=== PATIENT | female | born 1935 | race Caucasian/White ===

== ENCOUNTER 2016-06-03 13:06 | Inpatient (IN) | payer OTHER, BC ==
--- NOTE | 2016-06-03 13:26 | PDOC ---
History of Present Illness - History of Present Illness Initial Comments: 06/03/16 13:50 The patient is an 80 year old female with no past medical hx who presents to the ED complaining of abdominal pain and constipation for 2 weeks. The patient states she has not had a bowel movement in 2 weeks. She states her abdomen feels very distended. She notes she took a few different laxatives with no relief of her constipation. She reports she tries to eat but feels very full. She is having pain when standing up and bending over. She denies ever having a colonoscopy in the past. She reports she does not have a PCP and does not see a doctor on a regular basis. She denies a surgical history. The patient denies nausea, vomiting The patient denies fever, chills <Lizeth Carvajal - Last Filed: 06/03/16 15:31> <Lilibeth Zaman - Last Filed: 06/03/16 23:30> - General History Source: Patient Exam Limitations: No Limitations <Ewa Chavarria - Last Filed: 06/05/16 11:32> - General Chief Complaint: Pain, Acute Stated Complaint: ABD PAIN, CONSTIPATED Time Seen by Provider: 06/03/16 13:25 Past History <Lizeth Carvajal - Last Filed: 06/03/16 15:31> <Lilibeth Zaman - Last Filed: 06/03/16 23:30> - Psycho/Social/Smoking Cessation Hx Suicidal Ideation: No Smoking History: Never smoked <Ewa Chavarria - Last Filed: 06/05/16 11:32> - Past Medical History Allergies/Adverse Reactions: Allergies Allergy/AdvReac Type Severity Reaction Status Date / Time sulindac [From [place]] Allergy Unknown Rash Verified 06/03/16 22:28 CLINERAL Allergy Intermediate Hives Uncoded 06/03/16 13:20 Home Medications: Ambulatory Orders NK [No Known Home Medication] 06/03/16 Review of Systems - Review of Systems Able to Perform ROS?: Yes Comments:: 06/03/16 13:50 GENERAL/CONSTITUTIONAL: No: fever, chills, weakness, loss of appetite. HEAD, EYES, EARS, NOSE AND THROAT: No: change in vision, ear pain, discharge, sore throat, throat swelling. CARDIOVASCULAR: No: chest pain, lightheadedness, palpitations, syncope RESPIRATORY: No: cough, shortness of breath, wheezing, hemoptysis, stridor. GASTROINTESTINAL:+Distended, abdominal pain, constipation. No: nausea, vomiting , diarrhea, rectal bleeding. GENITOURINARY: No: dysuria, hematuria, frequency, urgency, flank pain. MUSCULOSKELETAL: No: back pain, neck pain, joint pain, muscle swelling or pain SKIN: No: lesions, pallor, rash or easy bruising. NEUROLOGIC: No: headache, vertigo, paresthesias, weakness ENDOCRINE: No: unexplained weight gain or loss HEMATOLOGIC/LYMPHATIC: No: anemia, easy bleeding, swelling nodes <Lizeth Carvajal - Last Filed: 06/03/16 15:31> *Physical Exam - Vital Signs Last Vital Signs Temp Pulse Resp BP Pulse Ox 97.7 F 89 19 146/78 96 06/03/16 13:21 06/03/16 13:21 06/03/16 13:21 06/03/16 13:21 06/03/16 13:21 - Physical Exam Comments: 06/03/16 13:50 GENERAL: The patient is in no acute distress. HEAD: Normal with no signs of trauma. EYES: PERRLA, EOMI, sclera anicteric, conjunctiva clear. ENT: Ears normal, nares patent, oropharynx clear without exudates. Moist mucous membranes. NECK: Normal range of motion, supple without lymphadenopathy, JVD, or masses. LUNGS: Breath sounds equal, clear to auscultation bilaterally. No wheezes, and no crackles. HEART:Regular rate and rhythm, normal S1 and S2 without murmur, rub or gallop. ABDOMEN: +Distended. Soft, normoactive bowel sounds. No guarding, no rebound. EXTREMITIES: Normal range of motion, no edema. No clubbing or cyanosis. No erythema, or tenderness. NEUROLOGICAL: Cranial nerves II through XII grossly intact. Normal speech. No focal neurological deficits. MUSCULOSKELETAL: Back nontender to palpation, no CVA tenderness SKIN: Warm, Dry, normal turgor, no rashes or lesions noted. <Lizeth Carvajal - Last Filed: 06/03/16 15:31> - Vital Signs Last Vital Signs Temp Pulse Resp BP Pulse Ox 97.7 F 86 20 163/90 95 06/03/16 13:21 06/03/16 18:56 06/03/16 18:56 06/03/16 18:56 06/03/16 18:56 <Lilibeth Zaman - Last Filed: 06/03/16 23:30> - Vital Signs Last Vital Signs Temp Pulse Resp BP Pulse Ox 97.7 F 89 19 146/78 96 06/03/16 13:21 06/03/16 13:21 06/03/16 13:21 06/03/16 13:21 06/03/16 13:21 <Ewa Chavarria - Last Filed: 06/05/16 11:32> ED Treatment Course - LABORATORY CBC & Chemistry Diagram: 06/03/16 13:40 06/03/16 13:40 - RADIOLOGY Radiograph Interpretation: 06/03/16 15:31 Abdomen X-Ray Imaging reveals dilated loops of small bowel partially filled with contrast and some filled with air. There is a paucity of stool and gas seen in the colon. There is an ovoid calcification with phlebolith seen in the left hemipelvis. Free air is not visualized. The lung bases appear well- aerated. There is a prominent heart. Organomegaly or upper abdominal calcifications are not visualized. Impression: Findings suggestive of a small bowel obstruction. For more complete evaluation, CT is recommended. Reported By: Antwon Chun MD 06/03/16 1522 <Lizeth Carvajal - Last Filed: 06/03/16 15:31> - LABORATORY CBC & Chemistry Diagram: 06/03/16 13:40 06/03/16 13:40 - ADDITIONAL ORDERS Additional order review: Laboratory Results 06/03/16 06/03/16 06/03/16 18:56 13:40 13:40 INR Sodium 140 Potassium 4.2 Chloride 105 Carbon Dioxide 24 Anion Gap 11 BUN 23 H Creatinine 0.9 Creat Clearance w eGFR > 60 Random Glucose 110 H Lactic Acid 0.963 Calcium 9.4 Total Bilirubin 0.5 AST 20 ALT 28 Alkaline Phosphatase 109 Total Protein 7.6 Albumin 3.7 Blood Type O NEGATIVE Antibody Screen Positive H Antibody Identification Not Reportable Antigen Identification Y 06/03/16 13:40 INR 1.05 Sodium Potassium Chloride Carbon Dioxide Anion Gap BUN Creatinine Creat Clearance w eGFR Random Glucose Lactic Acid Calcium Total Bilirubin AST ALT Alkaline Phosphatase Total Protein Albumin Blood Type Antibody Screen Antibody Identification Antigen Identification 06/03/16 13:40 RBC 4.39 MCV 88.7 MCHC 33.4 RDW 14.8 MPV 8.1 Neutrophils % 75.5 Lymphocytes % 15.2 Monocytes % 7.8 Eosinophils % 0.6 Basophils % 0.9 <Lilibeth Zaman - Last Filed: 06/03/16 23:30> - LABORATORY CBC & Chemistry Diagram: 06/05/16 06:05 06/05/16 06:05 <Ewa Chavarria - Last Filed: 06/05/16 11:32> Medical Decision Making - Medical Decision Making 06/03/16 19:51 Pt comes with abd distension; Colon is very distended with fluid ivonne; Rectus sigmoid looks corrugated. Likely obstipation. 06/03/16 23:30 Pt admitted to hospitalist service for likely intestinal obstruction. I started levaquin and flagyl to treat a potential colitis. We placed an NGT to suction her abdomen. 06/03/16 23:34 Patient Name: Poonam Larson THIS IS A PRELIMINARY REPORT FROM [facility] EXAM: CT abdomen/pelvis with contrast IMAGES: 491 DATE OF SERVICE: 2016-06-03 18:25:53.0 REASON FOR EXAM: Abdominal distention, left lower quadrant pain COMPARISON: None FINDINGS: Small hiatal hernia noted. There is no free air. There are 2 nonspecific low-density findings noted in the right lobe of the liver measuring 2.2 and 1.8 cm. The gallbladder is mildly distended. There are no obvious gallstones. There is no hydronephrosis. There are no renal calculi. There is diffuse distention of the colon with fluid stool. Bowel wall thickening is noted in the upper rectum/lower sigmoid colon possibly colitis versus bowel mass. Followup recommended. There are multiple distended fluid and air-filled small bowel loops noted without obvious transition point. Findings may be related to ileus or colonic obstipation. The appendix is not identified with certainty. Urinary bladder is unremarkable. There are no bladder calculi. Calcified 3 cm fat containing mass in the left adnexa possibly heavily calcified dermoid. THIS DOCUMENT HAS BEEN ELECTRONICALLY SIGNED <Lilibeth Zaman - Last Filed: 06/03/16 23:30> - Medical Decision Making 06/03/16 13:26 A portion of this note was documented by scribe services under my direction. I have reviewed the details of the note, within reason, and agree with the documentation with the following case summary and management plan written by me. Nursing documentation reviewed and incorporated into medical decision making This is an 80 yo F with no reported PMH, pt has NO PMD She presents to the ER with a complaint of constipation Pt states she has not had a bowel movement in 2 weeks Today she had a small bowel movement She presented to the ER because of abdominal distention and tenderness She is tolerating liquids When she attempts to eat, she feels full No fevers or chills No vomiting No prior episodes like this She has taken MOM, Mag Citrate with minimal effect she took a suppository and this helped her minimally On examination: Abdominal distention Pt in pain with flexion or extension Will do Labs CT abd and pelvis Enema 06/03/16 15:11 Laboratory Tests 06/03/16 06/03/16 13:40 13:40 WBC 7.9 Hgb 13.0 Hct 39.0 Plt Count 433 BUN 23 H Creatinine 0.9 Random Glucose 110 H Total Bilirubin 0.5 AST 20 ALT 28 06/03/16 15:46 ABD XRAY: SBO likely Will NOT DO ENEMA Awaiting CT scan Pt has already drank contrast 06/03/16 18:[address] waiting on [address] SCAN to be performed Multiple calls placed to CT They are "backed up" Awaiting Lactate Anticipate admission Pt signed out to Dr Zaman pending CT scan results <Ewa Chavarria - Last Filed: 06/05/16 11:32> *DC/Admit/Observation/Transfer - Attestations Scribe Attestion: 06/03/16 13:50 Documentation prepared by Lizeth Carvajal, acting as medical aides teacher for Ewa Chavarria MD/DO. <Lizeth Carvajal - Last Filed: 06/03/16 15:31> - Discharge Dispostion Admit: Yes <Lilibeth Zaman - Last Filed: 06/03/16 23:30> <Ewa Chavarria - Last Filed: 06/05/16 11:32> Diagnosis at time of Disposition: Colonic mass, Obstruction, colon, Colitis, Obstipation - Discharge Dispostion Condition at time of disposition: Guarded
[2016-06-03 14:05] LABS: BASOPHIL 0.9 % (0-2.0); EOSINOPHIL 0.6 % (0-4.5); MCH 29.6 pg (25.7-33.7); MCHC 33.4 g/dl (32.0-36.0); MEAN CELL VOLUME 88.7 fl (80-96); MEAN PLT VOLUME 8.1 fl (7.5-11.1); NEUTROPHILS 75.5 % (42.8-82.8); PLATELET COUNT 433 K/MM3 (134-434); RDW 14.8 % (11.6-15.6); WHITE BLOOD COUNT 7.9 K/mm3 (4.0-10.0)
[2016-06-03 14:18] LABS: ALBUMIN 3.7 g/dl (3.4-5.0); ANION GAP 11 (8-16); BILIRUBIN,TOTAL 0.5 mg/dL (0.2-1.0); CALCIUM 9.4 mg/dL (8.5-10.1); CO2 24 mmol/L (21-32); CREATININE 0.9 mg/dL (0.55-1.02); GLUCOSE,RANDOM 110 mg/dL (74-106); SGOT/AST 20 U/L (15-37); SGPT/ALT 28 U/L (12-78); TOT PROT 7.6 g/dl (6.4-8.2)
[2016-06-03 14:19] LABS: ALK PHOS 109 U/L (45-117)
[2016-06-03 16:25] LABS: INR 1.05 (0.82-1.09); PROTHROMBIN TIME (PATIENT) 11.6 SEC (9.98-11.88)
[2016-06-03] MEDS ORDERED: SODIUM CHLORIDE 1,000 ML IV STA (17:09)
[2016-06-03] MEDS ORDERED: FAMOTIDINE 20 MG/50 ML IVPB 50 ML IVPB ONE (18:55)
[2016-06-03] MEDS ORDERED: morphine CARPU-JECT 2 MG/1 ML DISP.SYRIN IVPUSH ONE (19:50)
[2016-06-03] MEDS ORDERED: METRONIDAZOLE 500 MG PREMIXED 100 ML IVPB ONE (19:53)
[2016-06-03] MEDS ORDERED: LEVOFLOXACIN 500 MG IVPB 100 ML IVPB ONE (19:53)
[2016-06-03] MEDS ORDERED: ONDANSETRON 4 MG/2 ML VIAL IVPB ONE (20:04)
--- NOTE | 2016-06-03 20:34 | HP ---
<Feli Saxena - Last Filed: 06/03/16 20:33> Problem List - Problem (1) Obstruction, colon Code(s): K56.60 - UNSPECIFIED INTESTINAL OBSTRUCTION Visit type - Emergency Visit Emergency Visit: Yes Care time: The patient presented to the Emergency Department on the above date and was hospitalized for further evaluation of their emergent condition. - New Patient This patient is new to me today: Yes Date on this admission: 06/03/16 - Critical Care Critical Care patient: No <Rylie Clark - Last Filed: 06/04/16 03:46> CHIEF COMPLAINT: abdominal pain and constipation PCP: none HISTORY OF PRESENT ILLNESS: 80 year old female with complaint of constipation and lower abdominal pain for 2 weeks. Patient notes that she initially developed abdominal pain and then noticed change in bowel movement and stool that became harder and smaller. She denies passing gas or burping over the past few days. She reports taking multiple laxatives without any relief. She reports a small bowel movement this morning. She also reports decreased appetite. She also notes that last month every time she ate nuts was experiencing abdominal pain. Denies any SOB, cp, fever, nausea, vomiting or diarrhea. Denies any recent weight changes. Denies any recent travel. Denies recent abx use. PMH: denies any PSH: mastoid surgery as a child FH: sister breast ca, mother from CHF, father from stroke at 58 SH: non smoker, denies alcohol or drug use. Lives with family ER course was notable for: (1) Abdominal XRAY/CT (2) (3) Recent Travel: denies PAST MEDICAL HISTORY: denies PAST SURGICAL HISTORY: mastoid surgery as a child Social History: Smoking: no Alcohol: no Drugs: no Family History: sister breast ca, mother CHF, father stroke at 58 Allergies CLINERAL Allergy (Intermediate, Uncoded 06/03/16 13:20) Hives HOME MEDICATIONS: REVIEW OF SYSTEMS CONSTITUTIONAL: Absent: fever, chills, diaphoresis, generalized weakness, malaise, loss of appetite, weight change HEENT: Absent: rhinorrhea, nasal congestion, throat pain, throat swelling, difficulty swallowing, mouth swelling, ear pain, eye pain, visual changes CARDIOVASCULAR: Absent: chest pain, syncope, palpitations, irregular heart rate, lightheadedness , peripheral edema RESPIRATORY: Absent: cough, shortness of breath, dyspnea with exertion, orthopnea, wheezing, stridor, hemoptysis GASTROINTESTINAL: Present: abdominal pain, abdominal distension, constipation Absent: nausea, vomiting, diarrhea, melena, hematochezia GENITOURINARY: Absent: dysuria, frequency, urgency, hesitancy, hematuria, flank pain, genital pain MUSCULOSKELETAL: Absent: myalgia, arthralgia, joint swelling, back pain, neck pain SKIN: Absent: rash, itching, pallor HEMATOLOGIC/IMMUNOLOGIC: Absent: easy bleeding, easy bruising, lymphadenopathy, frequent infections ENDOCRINE: Absent: unexplained weight gain, unexplained weight loss, heat intolerance, cold intolerance NEUROLOGIC: Absent: headache, focal weakness or paresthesias, dizziness, unsteady gait, seizure, mental status changes, bladder or bowel incontinence PSYCHIATRIC: Absent: anxiety, depression, suicidal or homicidal ideation, hallucinations. PHYSICAL EXAMINATION Vital Signs - 24 hr 06/03/16 06/03/16 13:21 18:56 Temperature 97.7 F Pulse Rate 89 Pulse Rate [ 86 Apical] Respiratory 19 20 Rate Blood Pressure 146/78 Blood Pressure 163/90 [Right Arm] O2 Sat by Pulse 96 95 Oximetry (%) GENERAL: Awake, alert, and fully oriented, in no acute distress. HEAD: Normal with no signs of trauma. EYES: Pupils equal, round and reactive to light, extraocular movements intact, sclera anicteric, conjunctiva clear. No lid lag. EARS, NOSE, THROAT: +nasogastric tube inserted with minimal bright red blood drained. Ears normal, nares patent, oropharynx clear without exudates. Moist mucous membranes. NECK: Normal range of motion, supple without lymphadenopathy, JVD, or masses. LUNGS: Breath sounds equal, clear to auscultation bilaterally. No wheezes, and no crackles. No accessory muscle use. HEART: Regular rate and rhythm, normal S1 and S2 without murmur, rub or gallop. ABDOMEN: : +abdominal tenderness to palpation with guarding, +no bowel sounds appreciated,+ tympanic to percussion. No hepatomegaly or splenomegaly. MUSCULOSKELETAL: Normal range of motion at all joints. No bony deformities or tenderness. No CVA tenderness. UPPER EXTREMITIES: 2+ pulses, warm, well-perfused. No cyanosis. No clubbing. Cap refill <2 seconds. No peripheral edema. LOWER EXTREMITIES: 2+ pulses, warm, well-perfused. No calf tenderness. No peripheral edema. NEUROLOGICAL: Cranial nerves II-XII intact. Normal speech. PSYCHIATRIC: Cooperative. Good eye contact. Appropriate mood and affect. SKIN: Warm, dry, normal turgor, no rashes or lesions noted. Laboratory Results - last 24 hr 06/03/16 06/03/16 06/03/16 13:40 13:40 13:40 WBC 7.9 RBC 4.39 Hgb 13.0 Hct 39.0 MCV 88.7 MCHC 33.4 RDW 14.8 Plt Count 433 MPV 8.1 Neutrophils % 75.5 Lymphocytes % 15.2 Monocytes % 7.8 Eosinophils % 0.6 Basophils % 0.9 INR 1.05 Sodium 140 Potassium 4.2 Chloride 105 Carbon Dioxide 24 Anion Gap 11 BUN 23 H Creatinine 0.9 Creat Clearance w eGFR > 60 Random Glucose 110 H Lactic Acid Calcium 9.4 Total Bilirubin 0.5 AST 20 ALT 28 Alkaline Phosphatase 109 Total Protein 7.6 Albumin 3.7 Blood Type Antibody Screen Antibody Identification Antigen Identification 06/03/16 06/03/16 13:40 18:56 WBC RBC Hgb Hct MCV MCHC RDW Plt Count MPV Neutrophils % Lymphocytes % Monocytes % Eosinophils % Basophils % INR Sodium Potassium Chloride Carbon Dioxide Anion Gap BUN Creatinine Creat Clearance w eGFR Random Glucose Lactic Acid 0.963 Calcium Total Bilirubin AST ALT Alkaline Phosphatase Total Protein Albumin Blood Type O NEGATIVE Antibody Screen Positive H Antibody Identification Not Reportable Antigen Identification Y Imaging: Abdominal XRAY: Impression: Findings suggestive of a small bowel obstruction. For more complete evaluation, CT is recommended. ASSESSMENT/PLAN: Admitted for abdominal pain for possible SBO vs colitis -NPO -IVF 100 CC/hr -Levo and Flagyl -Follow CBC&BMP in AM -GI consult -Consider surgical consult DVT ppx -Heparin subQ Documentation prepared by JIM Valente, acting as medical biller coder for Feli Saxena MD.
[2016-06-03] MEDS ORDERED: METRONIDAZOLE 500 MG PREMIXED 100 ML IVPB SCH (22:30)
[2016-06-03] MEDS: SODIUM CHLORIDE 1,000 ML IV SCH (22:53)
[2016-06-03] MEDS: FAMOTIDINE 20 MG/50 ML IVPB 50 ML IVPB SCH (22:54)
[2016-06-03] MEDS: ONDANSETRON 4 MG/2 ML VIAL IVPB PRN (22:54)
[2016-06-04 00:22] VITALS: BMI 21.0
[2016-06-04] MEDS: morphine CARPU-JECT 2 MG/1 ML DISP.SYRIN IVPUSH PRN ×3 (01:06→21:34)
[2016-06-04] MEDS: METRONIDAZOLE 500 MG PREMIXED 100 ML IVPB SCH ×4 (03:53→21:20)
[2016-06-04] MEDS: ONDANSETRON 4 MG/2 ML VIAL IVPB PRN ×2 (06:10→20:26)
--- NOTE | 2016-06-04 08:36 | PN ---
Progress Note, Physician - Current Medication List Current Medications: Active Medications Enoxaparin Sodium (Lovenox -) 40 mg SQ DAILY [facility] Sodium Chloride (Normal Saline -) 1,000 mls @ 100 mls/hr IV ASDIR SHRUTHI Last Admin: 06/03/16 22:53 Dose: 100 mls/hr Famotidine/Sodium Chloride (Pepcid 20 Mg Premixed Ivpb -) 50 mls @ 100 mls/hr IVPB BID SHRUTHI Last Admin: 06/03/16 22:54 Dose: 100 mls/hr Levofloxacin (Levaquin 250 Mg Premixed Ivpb -) 50 mls @ 50 mls/hr IVPB DAILY SHRUTHI Metronidazole (Flagyl 500mg Premixed Ivpb -) 100 mls @ 100 mls/hr IVPB Q6H-IV SHRUTHI Last Admin: 06/04/16 03:53 Dose: 100 mls/hr Morphine Sulfate (Morphine Injection -) 1 mg IVPUSH Q4H PRN PRN Reason: PAIN Last Admin: 06/04/16 06:10 Dose: 1 mg Ondansetron HCl (Zofran Injection) 4 mg IVPB Q6H PRN PRN Reason: NAUSEA Last Admin: 06/04/16 06:10 Dose: 4 mg - Objective Vital Signs: Vital Signs Temperature 97.4 F L 06/04/16 06:00 Pulse Rate 87 06/04/16 06:00 Respiratory Rate 20 06/04/16 06:00 Blood Pressure 146/84 06/04/16 06:00 O2 Sat by Pulse Oximetry (%) 95 06/03/16 21:22 Constitutional: Yes: Well Nourished, No Distress, Calm Eyes: Yes: WNL, Conjunctiva Clear HENT: Yes: Atraumatic, Normocephalic, Other (NG tube in place) Neck: Yes: WNL, Supple, Trachea Midline Cardiovascular: Yes: WNL, Regular Rate and Rhythm Respiratory: Yes: WNL, Regular, CTA Bilaterally Gastrointestinal: Yes: Distention, Hyperactive Bowel Sounds, Tenderness Musculoskeletal: Yes: WNL Extremities: Yes: WNL Edema: No Integumentary: Yes: WNL Neurological: Yes: WNL, Alert, Oriented ...Motor Strength: WNL Psychiatric: Yes: WNL Labs: INR, PTT INR 1.05 (0.82-1.09) 06/03/16 13:40 Impression/Plan Impression/Plan: 80 year old woman admitted for high grade bowel obstruction -obstruction appears to be at sigmoid colon with dilation of large and small bowel -was started on abx for possible colitis by pinion and wheel truer but history and lack of fever/white count makes this less likely -will await official reading of CT by radiologist before stopping abx -follow up GI and surgery consults for possible mass causing obstruction -keep NPO with NG tube in place Visit type - Emergency Visit Emergency Visit: Yes ED Registration Date: 06/03/16 Care time: The patient presented to the Emergency Department on the above date and was hospitalized for further evaluation of their emergent condition. - New Patient This patient is new to me today: Yes Date on this admission: 06/04/16 - Critical Care Critical Care patient: No
[2016-06-04 08:37] LABS: MCH 29.9 pg (25.7-33.7); MCHC 33.6 g/dl (32.0-36.0); MEAN PLT VOLUME 8.3 fl (7.5-11.1); PLATELET COUNT 430 K/MM3 (134-434); RDW 14.8 % (11.6-15.6); WHITE BLOOD COUNT 10.1 K/mm3 (4.0-10.0)
[2016-06-04 08:50] LABS: CALCIUM 8.2 mg/dL (8.5-10.1); CREATININE 0.8 mg/dL (0.55-1.02)
[2016-06-04] MEDS: FAMOTIDINE 20 MG/50 ML IVPB 50 ML IVPB SCH ×2 (09:35→21:30)
[2016-06-04] MEDS: LEVOFLOXACIN 250 MG IVPB 50 ML IVPB SCH (10:23)
[2016-06-04] MEDS: ENOXAPARIN NA (PORCINE) 40 MG/0.4 ML DISP.SYRIN SQ SCH (10:26)
[2016-06-04] MEDS ORDERED: BENZOCAINE/MENTH/CETYLPYRD CL 1 EACH LOZENGE MM PRN (11:43)
--- NOTE | 2016-06-04 13:13 | CON.GI ---
Consult Consult Specialty:: Gastroenterology Referred by:: Dr Morin Reason for Consultation:: Abdominal distension - History of Present Illness Chief Complaint: Distended abdominal with bloating discomfort and failure to have bowel movement for 2 weeks. History of Present Illness: 80W tells me that she has not been able to move her bowels for the past two weeks despite using Citrate of magnesia and milk of magnesia. This is an abrupt change in bowel habits. She denies any preceding constipation or narrowing of stools. She has diminished appetite only recently and denies weight loss. She has never had a colonoscopy or abdominal surgery. - History Source History Provided By: Patient Limitations to Obtaining History: No Limitations - Past Medical History Musculoskeletal: Yes: Chronic low back pain (lumbar disc disease) - Past Surgical History Additional Surgical History: bilateral mastoid surgeries - Alcohol/Substance Use Hx Alcohol Use: No History of Substance Use: reports: None - Smoking History Smoking history: Never smoked - Social History Usual Living Arrangement: With Spouse ADL: Independent Occupation: retired dental hygienist Place of : [facility] History of Recent Travel: No Home Medications - Allergies Allergies/Adverse Reactions: Allergies Allergy/AdvReac Type Severity Reaction Status Date / Time sulindac [From Clinoril] Allergy Unknown Rash Verified 06/03/16 22:28 CLINERAL Allergy Intermediate Hives Uncoded 06/03/16 13:20 - Home Medications Home Medications: Ambulatory Orders NK [No Known Home Medication] 06/03/16 Family Disease History - Family Disease History Family Disease History: Heart Disease: Mother ( 80 congestive heart failure) , CA: Sister (breast cancer), Other: Father ( 56 of CVA) Review of Systems - Review of Systems Constitutional: reports: Loss of Appetite Eyes: reports: No Symptoms HENT: reports: No Symptoms Neck: reports: No Symptoms Cardiovascular: reports: No Symptoms Respiratory: reports: No Symptoms Gastrointestinal: reports: Bloating, Constipation Genitourinary: reports: No Symptoms Musculoskeletal: reports: Back Pain Neurological: reports: No Symptoms Endocrine: reports: No Symptoms Psychiatric: reports: No Symptoms Physical Exam-GI Vital Signs: Vital Signs Temperature 98.0 F 06/04/16 09:00 Pulse Rate 83 06/04/16 09:00 Respiratory Rate 20 06/04/16 09:00 Blood Pressure 140/74 06/04/16 09:00 O2 Sat by Pulse Oximetry (%) 95 06/03/16 21:22 CBC,CMP WBC 10.1 K/mm3 (4.0-10.0) H 06/04/16 07:30 RBC 4.28 M/mm3 (3.60-5.2) 06/04/16 07:30 Hgb 12.8 GM/dL (10.7-15.3) 06/04/16 07:30 Hct 38.1 % (32.4-45.2) 06/04/16 07:30 MCV 89.0 fl (80-96) 06/04/16 07:30 MCHC 33.6 g/dl (32.0-36.0) 06/04/16 07:30 RDW 14.8 % (11.6-15.6) 06/04/16 07:30 Plt Count 430 K/MM3 (134-434) 06/04/16 07:30 MPV 8.3 fl (7.5-11.1) 06/04/16 07:30 Neutrophils % 75.5 % (42.8-82.8) 06/03/16 13:40 Lymphocytes % 15.2 % (8-40) 06/03/16 13:40 Monocytes % 7.8 % (3.8-10.2) 06/03/16 13:40 Eosinophils % 0.6 % (0-4.5) 06/03/16 13:40 Basophils % 0.9 % (0-2.0) 06/03/16 13:40 Sodium 142 mmol/L (136-145) 06/04/16 07:30 Potassium 4.3 mmol/L (3.5-5.1) 06/04/16 07:30 Chloride 109 mmol/L (98-107) H 06/04/16 07:30 Carbon Dioxide 21 mmol/L (21-32) 06/04/16 07:30 Anion Gap 12 (8-16) 06/04/16 07:30 BUN 17 mg/dL (7-18) D 06/04/16 07:30 Creatinine 0.8 mg/dL (0.55-1.02) 06/04/16 07:30 Creat Clearance w eGFR > 60 (>60) 06/03/16 13:40 Random Glucose 96 mg/dL (74-106) 06/04/16 07:30 Lactic Acid 0.963 mmol/L (0.4-2.0) 06/03/16 18:56 Calcium 8.2 mg/dL (8.5-10.1) L 06/04/16 07:30 Total Bilirubin 0.5 mg/dL (0.2-1.0) 06/03/16 13:40 AST 20 U/L (15-37) 06/03/16 13:40 ALT 28 U/L (12-78) 06/03/16 13:40 Alkaline Phosphatase 109 U/L (45-117) 06/03/16 13:40 Total Protein 7.6 g/dl (6.4-8.2) 06/03/16 13:40 Albumin 3.7 g/dl (3.4-5.0) 06/03/16 13:40 Current Medications Generic Name Dose Route Start Last Admin Trade Name Freq PRN Reason Stop Dose Admin Benzocaine/Menthol 1 each 06/04/16 11:43 06/04/16 12:37 Cepacol Lozenge - MM 1 each Q1H PRN Administration SORE THROAT Enoxaparin Sodium 40 mg 06/04/16 10:00 06/04/16 10:26 Lovenox - SQ Not Given DAILY SHRUTHI Sodium Chloride 1,000 mls @ 100 mls/hr 06/03/16 20:45 06/03/16 22:53 Normal Saline - IV 100 mls/hr ASDIR SHRUTHI Administration Famotidine/Sodium Chloride 50 mls @ 100 mls/hr 06/03/16 22:00 06/04/16 09:35 Pepcid 20 Mg Premixed Ivpb - IVPB 100 mls/hr BID SHRTUHI Administration Levofloxacin 50 mls @ 50 mls/hr 06/04/16 10:00 06/04/16 10:23 Levaquin 250 Mg Premixed Ivpb - IVPB 50 mls/hr DAILY SHRUTHI Administration Metronidazole 100 mls @ 100 mls/hr 06/04/16 03:00 06/04/16 08:37 Flagyl 500mg Premixed Ivpb - IVPB 100 mls/hr Q6H-IV SHRUTHI Administration Morphine Sulfate 2 mg 06/04/16 08:41 Morphine Injection - IVPUSH Q4H PRN PAIN Ondansetron HCl 4 mg 06/03/16 20:34 06/04/16 06:10 Zofran Injection IVPB 4 mg Q6H PRN Administration NAUSEA Constitutional: Yes: Anxious Eyes: Yes: Conjunctiva Clear HENT: Yes: Normocephalic Neck: Yes: Supple Cardiovascular: Yes: Regular Rate and Rhythm Respiratory: Yes: CTA Bilaterally Gastrointestinal Inspection: Yes: Distention ...Auscultate: Yes: Hypoactive Bowel Sounds ...Palpate: Yes: Mass (LLQ tubular mass ? stool filled bowel loop), Other ( markedly distended but not yet tense, nontender) ...Rectal Exam: Yes: Guaiac Negative (full of hard feces) Labs: CBC, BMP 06/04/16 07:30 06/04/16 07:30 INR, PTT INR 1.05 (0.82-1.09) 06/03/16 13:40 Imaging - Results Cat Scan: Image Reviewed (two liver masses, marked fecal impaction, uterine fibroid) Problem List - Problems (1) Change in bowel habits Code(s): R19.4 - CHANGE IN BOWEL HABIT Assessment/Plan Poonam has a marked fecal impaction. I cannot exclude the possibility of an obstructing colon cancer with liver mets. I discussed this with her and her . I have advised a colonoscopy and triple phase CT scan of the liver. I have informed Poonam of the potential for such complications as perforation and hemorrhage, She has signed an informed consent. I will initiate a bowel lavage utilizing the NG tube and schedule the colonoscopy when she is adequately prepped.
[2016-06-04] MEDS ORDERED: PEG3350/SOD SULF,BICARB,CL/KCL 4,000 ML SOLN.RECON PO ONE (13:25)
[2016-06-04] MEDS ORDERED: MINERAL OIL ENEMA 133 ML ENEMA PR ONE (13:27)
--- NOTE | 2016-06-04 14:07 | CONSULT ---
[id number], [facility] [place] - History of Present Illness Chief Complaint: abdominal pain and constipation x1 week History of Present Illness: 80 yo F presented to the ED after one week of constipation and 5 days of progressing abdominal pain. The patient states her last BM was on Sunday, 6 days ago, and it was smaller than usual. She had no relief of her constipation with laxatives. She states the abdominal pain began 5 days ago and has slowly progressed. THe pain is worst in her lower abdomen, although she states it is feeling better today. She has felt bloated and full. She has been eating less due to the constipation. She states she has not experienced this before or previous issues with her bowels. She denies fever, chills, nausea, vomiting. - History Source History Provided By: Patient Limitations to Obtaining History: No Limitations - Past Medical History Musculoskeletal: Yes: Chronic low back pain Additional Medical History: Denies PMH - Past Surgical History Additional Surgical History: surgery on ears as a child - Alcohol/Substance Use Hx Alcohol Use: No History of Substance Use: reports: None - Smoking History Smoking history: Never smoked - Social History Usual Living Arrangement: With Spouse ADL: Independent Occupation: retired dental hygienist History of Recent Travel: No <Bharti Ramos - Last Filed: 06/04/16 14:31> Home Medications <Bharti Ramos - Last Filed: 06/04/16 14:31> <Romain Knight - Last Filed: 06/04/16 19:27> - Allergies Allergies/Adverse Reactions: Allergies Allergy/AdvReac Type Severity Reaction Status Date / Time sulindac [From Clinoril] Allergy Unknown Rash Verified 06/03/16 22:28 CLINERAL Allergy Intermediate Hives Uncoded 06/03/16 13:20 - Home Medications Home Medications: Ambulatory Orders NK [No Known Home Medication] 06/03/16 Family Disease History - Family Disease History Family Disease History: Heart Disease: Mother ( 80 congestive heart failure) , CA: Sister (breast cancer), Other: Father ( 56 of CVA) <Bharti Ramos - Last Filed: 06/04/16 14:31> Review of Systems - Review of Systems Constitutional: denies: Chills, Fever Cardiovascular: denies: Chest Pain, Palpitations, Shortness of Breath Respiratory: denies: Cough, SOB Gastrointestinal: reports: Abdominal Pain, Constipation. denies: Diarrhea, Melena, Nausea, Vomiting Genitourinary: denies: Burning, Dysuria Musculoskeletal: reports: Back Pain (chronic) Neurological: denies: Headache, Weakness Hematology/Lymphatic: denies: Easily Bruised, Excessive Bleeding <Bharti Ramos - Last Filed: 06/04/16 14:31> Physical Exam Vital Signs: Vital Signs Temperature 98.9 F 06/04/16 14:04 Pulse Rate 89 06/04/16 14:04 Respiratory Rate 20 06/04/16 09:00 Blood Pressure 120/69 06/04/16 14:04 O2 Sat by Pulse Oximetry (%) 95 06/03/16 21:22 Constitutional: Yes: Well Nourished, No Distress, Calm Cardiovascular: Yes: Regular Rate and Rhythm Respiratory: Yes: CTA Bilaterally Gastrointestinal: Yes: Soft, Distention, Hypoactive Bowel Sounds, Tenderness ( lower abdomen) Extremities: Yes: WNL Neurological: Yes: WNL, Alert, Oriented Labs: CBC, BMP 06/04/16 07:30 06/04/16 07:30 <Bharti Ramos - Last Filed: 06/04/16 14:31> Vital Signs: Vital Signs Temperature 98.9 F 06/04/16 14:04 Pulse Rate 89 06/04/16 14:04 Respiratory Rate 20 06/04/16 09:00 Blood Pressure 120/69 06/04/16 14:04 O2 Sat by Pulse Oximetry (%) 95 06/03/16 21:22 Labs: CBC, BMP 06/04/16 07:30 06/04/16 07:30 <Romain Knight - Last Filed: 06/04/16 19:27> Imaging - Results Cat Scan: Report Reviewed (large amounts stool throughout colon, consistent with constipation, resulting in mild dilation of small bowel- discussed with Dr. Knight) <Bharti Ramos - Last Filed: 06/04/16 14:31> Assessment/Plan Continue NPO, NGT, IV fluids GI consult noted- prep for colonoscopy- agree with enemas ordered by GI GI/DVT prophylaxis OOB Discussed with Dr. Knight <Bharti Ramos - Last Filed: 06/04/16 14:31> Agree Fecal impaction/retention throughout the colon NPO NG tbe Enemas/bowel regimen GI to plan colonoscopy <Romain Knight - Last Filed: 06/04/16 19:27>
[2016-06-04] MEDS: SODIUM CHLORIDE 1,000 ML IV SCH (14:59)
--- NOTE | 2016-06-04 20:15 | EKG ---
Test Reason : Blood Pressure : / mmHG Vent. Rate : 076 BPM Atrial Rate : 076 BPM P-R Int : 142 ms QRS Dur : 070 ms QT Int : 414 ms P-R-T Axes : 047 020 043 degrees QTc Int : 465 ms POOR DATA QUALITY, INTERPRETATION MAY BE ADVERSELY AFFECTED NORMAL SINUS RHYTHM NORMAL ECG NO PREVIOUS ECGS AVAILABLE Confirmed by SANDRA DESHPANDE, PAULETTE ([id number]) on 06/04/2016 8:14:56 PM Referred By: Confirmed By:PAULETTE FLORES MD
[2016-06-05] MEDS: ONDANSETRON 4 MG/2 ML VIAL IVPB PRN ×3 (02:30→15:21)
[2016-06-05] MEDS: METRONIDAZOLE 500 MG PREMIXED 100 ML IVPB SCH ×3 (02:30→14:43)
[2016-06-05] MEDS: morphine CARPU-JECT 2 MG/1 ML DISP.SYRIN IVPUSH PRN ×2 (03:21→19:37)
[2016-06-05] MEDS: SODIUM CHLORIDE 1,000 ML IV SCH ×2 (06:16→21:30)
[2016-06-05 07:26] LABS: BASOPHIL 0.3 % (0-2.0); MCH 30.1 pg (25.7-33.7); MCHC 33.5 g/dl (32.0-36.0); MEAN PLT VOLUME 8.1 fl (7.5-11.1); NEUTROPHILS 88.2 % (42.8-82.8); PLATELET COUNT 416 K/MM3 (134-434); RDW 15.2 % (11.6-15.6); WHITE BLOOD COUNT 10.5 K/mm3 (4.0-10.0)
[2016-06-05 08:16] LABS: ALBUMIN 2.9 g/dl (3.4-5.0); ALK PHOS 81 U/L (45-117); ANION GAP 14 (8-16); BILIRUBIN,TOTAL 0.4 mg/dL (0.2-1.0); CALCIUM 8.1 mg/dL (8.5-10.1); CO2 20 mmol/L (21-32); CREATININE 0.8 mg/dL (0.55-1.02); GLUCOSE,RANDOM 83 mg/dL (74-106); SGOT/AST 18 U/L (15-37); SGPT/ALT 20 U/L (12-78); TOT PROT 6.1 g/dl (6.4-8.2)
[2016-06-05] MEDS: LEVOFLOXACIN 250 MG IVPB 50 ML IVPB SCH (10:01)
[2016-06-05] MEDS: FAMOTIDINE 20 MG/50 ML IVPB 50 ML IVPB SCH ×2 (10:01→21:30)
[2016-06-05] MEDS: ENOXAPARIN NA (PORCINE) 40 MG/0.4 ML DISP.SYRIN SQ SCH (10:02)
--- NOTE | 2016-06-05 13:40 | PN ---
<Suma Dawson - Last Filed: 06/05/16 14:25> Physical Exam: SUBJECTIVE: Patient seen and examined at bed time. patient reports not tolerating go lightly last night and nausea and vomited. patient report abd pain and distention. neg BM, neg pass gas patient denies any fevers, chills, SOb, palpitations, chest pain. Elizabeth Neely surgery switched NG tube from intermittent suction to continues suction. OBJECTIVE: Vital Signs Period Temp Pulse Resp BP Sys/Mead Pulse Ox Last 24 Hr 97.8 F-98.9 F 85-98 20-20 120-140/69-89 GENERAL: Awake, alert, and fully oriented, in mild acute distress. unable to sit up rodriguez to distention and discomfort, no lymphadenopathy. HEAD: Normal with no signs of trauma. EYES: extraocular movements intact, sclera anicteric, conjunctiva clear. EARS, NOSE, THROAT: +nasogastric tube inserted with minimal dark green, Ears normal, nares patent, oropharynx clear without exudates. Moist mucous membranes. NECK: Normal range of motion, supple without lymphadenopathy, JVD, or masses. LUNGS: Breath sounds equal, clear to auscultation bilaterally. No wheezes, and no crackles. No accessory muscle use. HEART: Regular rate and rhythm, normal S1 and S2 without murmur, rub or gallop. ABDOMEN: : Hypoactive Bowel Sounds, +abdominal tenderness to palpation with guarding, + tympanic to percussion. No hepatomegaly or splenomegaly appreciated. MUSCULOSKELETAL: Normal range of motion at all joints. No bony deformities or tenderness. No CVA tenderness. LOWER EXTREMITIES: 2+ pulses, warm, well-perfused. No calf tenderness. No peripheral edema. NEUROLOGICAL: Normal speech. no gross focal neurological deficit. PSYCHIATRIC: Cooperative. Good eye contact. Appropriate mood and affect. SKIN: Warm, dry, decreased turgor, no rashes or lesions noted. Laboratory Results - last 24 hr 06/05/16 06/05/16 06:05 06:05 WBC 10.5 H RBC 4.20 Hgb 12.7 Hct 37.8 MCV 90.0 MCHC 33.5 RDW 15.2 Plt Count 416 MPV 8.1 Neutrophils % 88.2 H Lymphocytes % 6.8 L D Monocytes % 4.7 Eosinophils % 0.0 D Basophils % 0.3 Sodium 144 Potassium 4.0 Chloride 110 H Carbon Dioxide 20 L Anion Gap 14 BUN 22 H D Creatinine 0.8 Creat Clearance w eGFR > 60 Random Glucose 83 Calcium 8.1 L Total Bilirubin 0.4 AST 18 ALT 20 D Alkaline Phosphatase 81 D Total Protein 6.1 L Albumin 2.9 L D Active Medications Generic Name Dose Route Start Last Admin Trade Name Freq PRN Reason Stop Dose Admin Benzocaine/Menthol 1 each 06/04/16 11:43 06/04/16 12:37 Cepacol Lozenge - MM 1 each Q1H PRN Administration SORE THROAT Enoxaparin Sodium 40 mg 06/04/16 10:00 06/05/16 10:02 Lovenox - SQ 40 mg DAILY SHRUTHI Administration Sodium Chloride 1,000 mls @ 100 mls/hr 06/03/16 20:45 06/05/16 06:16 Normal Saline - IV 100 mls/hr ASDIR SHRUTHI Administration Famotidine/Sodium Chloride 50 mls @ 100 mls/hr 06/03/16 22:00 06/05/16 10:01 Pepcid 20 Mg Premixed Ivpb - IVPB 100 mls/hr BID SHRUTHI Administration Levofloxacin 50 mls @ 50 mls/hr 06/04/16 10:00 06/05/16 10:01 Levaquin 250 Mg Premixed Ivpb - IVPB 50 mls/hr DAILY SHRUTHI Administration Metronidazole 100 mls @ 100 mls/hr 06/04/16 03:00 06/05/16 10:01 Flagyl 500mg Premixed Ivpb - IVPB 100 mls/hr Q6H-IV SHRUTHI Administration Morphine Sulfate 2 mg 06/04/16 08:41 06/05/16 03:21 Morphine Injection - IVPUSH 2 mg Q4H PRN Administration PAIN Ondansetron HCl 4 mg 06/03/16 20:34 06/05/16 09:21 Zofran Injection IVPB 4 mg Q6H PRN Administration NAUSEA ASSESSMENT/PLAN: 80 year old female with complaint of constipation and lower abdominal pain for 2 weeks found to have high grad Bowel obstruction with a possibility of an obstructing colon cancer with liver mets. Acute marked fecal impaction: appears to be resulting in mild dilatation of the small bowel loops/ileus and suggestion of thickening of the distal sigmoid colon wall. Continue NPO, NGT, IV fluids -cont abx -keep NPO with NG tube in place -Discussed with Dr. Knight -GI initiated Bowel lavage, and enema: will go for colonoscopy when adequately prepped. -triple phase CT scan of the liver per GI. to exclude Tachycardia: likely secondary to pain. Leukocytois: with left shift, possibly secondary to margination -cont Levaquin 250 Mg Premixed Ivpb daily day 2 -Flagyl 500mg Premixed Ivpb Q6h day 2 GI/DVT prophylaxis OOB NPO Visit type - Emergency Visit Emergency Visit: Yes ED Registration Date: 06/03/16 Care time: The patient presented to the Emergency Department on the above date and was hospitalized for further evaluation of their emergent condition. - New Patient This patient is new to me today: Yes Date on this admission: 06/03/16 - Critical Care Critical Care patient: No <MikelDavidson - Last Filed: 06/05/16 16:01> Physical Exam: ATTENDING PHYSICIAN STATEMENT I saw and evaluated the patient. I reviewed the resident's note and discussed the case with the resident. I agree with the resident's findings and plan as documented. SUBJECTIVE: seen and evaluated at the bedside OBJECTIVE: nauseous, NGT draining bilious fluid ASSESSMENT AND PLAN: 80 year old woman admitted for high grade bowel obstruction -obstruction appears to be at sigmoid colon with dilation of large and small bowel -was started on abx for possible colitis by paleontological helper but history and lack of fever/white count makes this less likely so discontinues abx -CT shows obstruction at sigmoid with suspicious lesions in liver -follow up GI and surgery consults for possible mass causing obstruction -keep NPO with NG tube in place
--- NOTE | 2016-06-05 16:42 | PN ---
Progress Note (short form) - Note Progress Note: Still with abdominal discomfort and distention A possibility of colon CA with liver metastases questioned based on the CT Given golytely for prep fpr colonoscopy- did not tolerate Getting enema for further colonoscopy prep to evaluate for possible CA NPO NG tube in place Vital Signs Period Temp Pulse Resp BP Sys/Mead Pulse Ox Last 24 Hr 97.8 F-98.7 F 85-98 18-20 135-140/80-89 Abd distended, diffusely tender, no rebound CBC, BMP 06/05/16 06:05 06/05/16 06:05 Continue NPO/NGT IV fluids Serial abdominal exams Await colonoscopy If inadequate prep or worsens, may need diverting colostomy
[2016-06-06] MEDS: SODIUM CHLORIDE 1,000 ML IV SCH (06:29)
[2016-06-06 07:23] LABS: BASOPHIL 0.6 % (0-2.0); EOSINOPHIL 0.4 % (0-4.5); MCH 29.9 pg (25.7-33.7); MCHC 33.5 g/dl (32.0-36.0); MEAN CELL VOLUME 89.2 fl (80-96); MEAN PLT VOLUME 8.4 fl (7.5-11.1); NEUTROPHILS 82.3 % (42.8-82.8); PLATELET COUNT 386 K/MM3 (134-434); RDW 15.1 % (11.6-15.6); WHITE BLOOD COUNT 10.5 K/mm3 (4.0-10.0)
[2016-06-06 07:40] LABS: INR 1.32 (0.82-1.09); PROTHROMBIN TIME (PATIENT) 14.6 SEC (9.98-11.88)
[2016-06-06 07:42] LABS: ACTIVATED PTT 26.2 SECONDS (26.9-34.4)
[2016-06-06] MEDS: morphine CARPU-JECT 2 MG/1 ML DISP.SYRIN IVPUSH PRN (07:46)
[2016-06-06 07:51] LABS: ALBUMIN 2.5 g/dl (3.4-5.0); CALCIUM 8.2 mg/dL (8.5-10.1); GLUCOSE,RANDOM 86 mg/dL (74-106)
[2016-06-06 07:54] LABS: ALK PHOS 68 U/L (45-117); ANION GAP 12 (8-16); BILIRUBIN,TOTAL 0.4 mg/dL (0.2-1.0); CO2 22 mmol/L (21-32); CREATININE 0.7 mg/dL (0.55-1.02); SGOT/AST 19 U/L (15-37); SGPT/ALT 16 U/L (12-78); TOT PROT 5.4 g/dl (6.4-8.2)
[2016-06-06] MEDS: ONDANSETRON 4 MG/2 ML VIAL IVPB PRN (08:48)
[2016-06-06] MEDS: ENOXAPARIN NA (PORCINE) 40 MG/0.4 ML DISP.SYRIN SQ SCH (11:14)
[2016-06-06] MEDS: FAMOTIDINE 20 MG/50 ML IVPB 50 ML IVPB SCH ×2 (11:17→21:46)
--- NOTE | 2016-06-06 14:54 | PN ---
Physical Exam: SUBJECTIVE: Patient seen and examined at bed side. patient reports same abdominal discomfort and Nausea, no vomiting. Soap suds enema produced one large Bowel. patient reports slightly better post BM. Discussed case with Dr Knight at bedside. Surgery for tomorrow canceled in light of BM. Dr. Gunn would like to start go lightly per nurse. Family requested second opinion, Dr Harris on board. OBJECTIVE: Vital Signs Period Temp Pulse Resp BP Sys/Mead Pulse Ox Last 24 Hr 97.8 F-98.0 F 69-86 18-22 124-150/60-81 GENERAL: Awake, alert, and fully oriented, in mild acute distress. HEAD: Normal with no signs of trauma. EYES: extraocular movements intact, sclera anicteric, conjunctiva clear. EARS, NOSE, THROAT: +nasogastric tube inserted with dark green, Ears normal, nares patent, oropharynx clear without exudates. Moist mucous membranes. NECK: Normal range of motion, supple without lymphadenopathy, JVD, or masses. LUNGS: Breath sounds equal, clear to auscultation bilaterally. no wheezes, and + crackles right lung base. No accessory muscle use. HEART: Regular rate and rhythm, normal S1 and S2 without murmur, rub or gallop. ABDOMEN: : softer than this morning. Hypoactive Bowel Sounds, +abdominal tenderness to palpation with guarding, + tympanic to percussion. No hepatomegaly or splenomegaly appreciated. MUSCULOSKELETAL: Normal range of motion at all joints. No bony deformities or tenderness. No CVA tenderness. LOWER EXTREMITIES: 2+ pulses, warm, well-perfused. No calf tenderness. No peripheral edema. NEUROLOGICAL: Normal speech. no gross focal neurological deficit. PSYCHIATRIC: Cooperative. Good eye contact. Appropriate mood and affect. SKIN: Warm, dry, decreased turgor, no rashes or lesions noted. Laboratory Results - last 24 hr 06/06/16 06/06/16 06/06/16 06:35 06:35 06:35 WBC 10.5 H RBC 3.93 Hgb 11.8 Hct 35.1 MCV 89.2 MCHC 33.5 RDW 15.1 Plt Count 386 MPV 8.4 Neutrophils % 82.3 Lymphocytes % 9.3 D Monocytes % 7.4 Eosinophils % 0.4 D Basophils % 0.6 INR 1.32 H PTT (Actin FS) 26.2 L Sodium 147 H Potassium 3.2 L Chloride 113 H Carbon Dioxide 22 Anion Gap 12 BUN 23 H Creatinine 0.7 Creat Clearance w eGFR > 60 Random Glucose 86 Calcium 8.2 L Total Bilirubin 0.4 AST 19 ALT 16 Alkaline Phosphatase 68 Total Protein 5.4 L Albumin 2.5 L Blood Type Antibody Screen Antibody Identification 06/06/16 06:35 WBC RBC Hgb Hct MCV MCHC RDW Plt Count MPV Neutrophils % Lymphocytes % Monocytes % Eosinophils % Basophils % INR PTT (Actin FS) Sodium Potassium Chloride Carbon Dioxide Anion Gap BUN Creatinine Creat Clearance w eGFR Random Glucose Calcium Total Bilirubin AST ALT Alkaline Phosphatase Total Protein Albumin Blood Type O NEGATIVE Antibody Screen Positive H Antibody Identification TNP Active Medications Generic Name Dose Route Start Last Admin Trade Name Freq PRN Reason Stop Dose Admin Acetaminophen 1,000 mg 06/06/16 14:28 Ofirmev Injection - IVPB 06/07/16 08:29 Q6H PRN FEVER OR PAIN Benzocaine/Menthol 1 each 06/04/16 11:43 06/04/16 12:37 Cepacol Lozenge - MM 1 each Q1H PRN Administration SORE THROAT Sodium Chloride 1,000 mls @ 100 mls/hr 06/03/16 20:45 06/06/16 06:29 Normal Saline - IV 100 mls/hr ASDIR SHRUTHI Administration Famotidine/Sodium Chloride 50 mls @ 100 mls/hr 06/03/16 22:00 06/06/16 11:17 Pepcid 20 Mg Premixed Ivpb - IVPB 100 mls/hr BID SHRUTHI Administration Ondansetron HCl 4 mg 06/03/16 20:34 06/06/16 08:48 Zofran Injection IVPB 4 mg Q6H PRN Administration NAUSEA ASSESSMENT/PLAN: 80 year old female with complaint of constipation and lower abdominal pain for 2 weeks found to have high grad Bowel obstruction with a possibility of an obstructing colon cancer with liver mets. Acute marked fecal impaction: appears to be resulting in mild dilatation of the small bowel loops/ileus and suggestion of thickening of the distal sigmoid colon wall. s/p soap demian enema produced one large BM. Continue NPO, NGT, IV fluids -keep NPO with NG tube in place -Surgery canceled for tomorrow per Dr. Knight, inlight of BM. if suffencient prep will consider Colonoscopy per GI or Berium enema. -GI initiated Bowel prep with Go lightly, and enema: will go for colonoscopy when adequately prepped. -Triple phase CT scan of the liver per GI. -OOB at tolerated. -d/c morphine and started Ofirmev 1,000mg q6h PRN. -Zofran for Nausea -Follow up CEA Tachycardia: likely secondary to pain. Leukocytois: with left shift, possibly secondary to margination no antibiotics at this time. GI/DVT prophylaxis OOB NPO Visit type - Emergency Visit Emergency Visit: Yes ED Registration Date: 06/03/16 Care time: The patient presented to the Emergency Department on the above date and was hospitalized for further evaluation of their emergent condition. - New Patient This patient is new to me today: No - Critical Care Critical Care patient: No
--- NOTE | 2016-06-06 15:45 | PN ---
Teaching Attending Note Name of Resident: Suma Dawson ATTENDING PHYSICIAN STATEMENT I saw and evaluated the patient. I reviewed the resident's note and discussed the case with the resident. I agree with the resident's findings and plan as documented. SUBJECTIVE:mild abdominal discomfort. no BM since admission. denies CP, SOB, fever, chills, no colonoscopy in the past. OBJECTIVE: Last Vital Signs Temp Pulse Resp BP Pulse Ox 98.0 F 73 20 124/60 95 06/06/16 13:55 06/06/16 13:55 06/06/16 13:55 06/06/16 11:00 06/03/16 21:22 General NAD ABdomen soft distended hyperactive BS. tympanic ASSESSMENT AND PLAN: 80yo F wtih no PMH presented to the ER and was admitted for further evaluation of their emergent condition 1. SBO- with fecal impaction. did not tolerate golytely through NGT. minimal removal of feces on mechanical disempaction. will attempt another enema today if no output will need to consider high colonics for disempaction. NGT adjusted this AM with bilious output. will need colonoscopy for high suspicion of malignancy with liver mets seen on CT. CEA pending. GI and surgery on board. cont NPO, IVF and pain/nausea control 2. Hypokalemia- KCl IV 3. DVT ppx- EAM (lovenox d/c by surgery for possible surgical intervention)
--- NOTE | 2016-06-06 16:27 | PN ---
Progress Note (short form) - Note Progress Note: Patient had BM today Golytely lavage restaretd by Dr. Braun If lavage successful, will need colonoscopy or sunday
[2016-06-06] MEDS: KCL 10 MEQ IVPB 100 ML IVPB SCH ×3 (16:29→21:46)
[2016-06-06] MEDS ORDERED: PEG3350/SOD SULF,BICARB,CL/KCL 4,000 ML SOLN.RECON PO ONE (16:30)
--- NOTE | 2016-06-06 16:55 | PN ---
Progress Note (short form) - Note Progress Note: No acute complaints Was given enemas with large BMs States she feels better and less distended NPO NG tube in place Vital Signs Period Temp Pulse Resp BP Sys/Mead Pulse Ox Last 24 Hr 97.8 F-98.0 F 69-86 18-22 124-150/60-81 Abd softer, distended but less than previously, no rebound CBC, BMP 06/06/16 06:35 06/06/16 06:35 NPO NG tube Continue enemas GI to plan colonoscopy once colon further prepped No need for diverting colostomy at this point Will follow Follow up CEA
[2016-06-06] MEDS: ACETAMINOPHEN 1000 MG/100 ML VIAL (NON FORMULARY) IVPB PRN (17:00)
--- NOTE | 2016-06-06 18:34 | HOSP ---
Subjective - Review of Symptoms Subjective: notified by RN that pt and family is requesting 2nd surgical opinion. informed that there is no plan for surgical intervention at this time. would still like to hear 2nd opinion. consult placed Physical Examination Vital Signs: Vital Signs Temperature 97.7 F 06/06/16 18:30 Pulse Rate 74 06/06/16 18:30 Respiratory Rate 20 06/06/16 18:30 Blood Pressure 147/72 06/06/16 18:30 O2 Sat by Pulse Oximetry (%) 95 06/03/16 21:22 Labs: CBC, BMP 06/06/16 06:35 06/06/16 06:35
--- NOTE | 2016-06-06 18:37 | CONSULT ---
Consult Consult Specialty:: colorectal surgery Referred by:: hemant simmons Reason for Consultation:: constipation - History of Present Illness Chief Complaint: abd pain History of Present Illness: Pt is a 80F with no BM x 2 weeks c/o bloating/abd pain. No prior colonoscopy. She had BM size of softball today with some improvement in abd distension/pain. CT scan shows constipation with liver masses that are unclear. ?transition at rectosigmoid junction? she could not tolerate golytely thru NGT before however with improvement in abd pain and softball BM golytely will be re- attempted. - History Source History Provided By: Patient Limitations to Obtaining History: No Limitations - Past Medical History Musculoskeletal: Yes: Chronic low back pain Additional Medical History: Denies PMH - Past Surgical History Additional Surgical History: surgery on ears as a child - Alcohol/Substance Use Hx Alcohol Use: No History of Substance Use: reports: None - Smoking History Smoking history: Never smoked - Social History Usual Living Arrangement: With Spouse ADL: Independent Occupation: retired dental hygienist History of Recent Travel: No Home Medications - Allergies Allergies/Adverse Reactions: Allergies Allergy/AdvReac Type Severity Reaction Status Date / Time sulindac [From [place]] Allergy Unknown Rash Verified 06/03/16 22:28 CLINERAL Allergy Intermediate Hives Uncoded 06/03/16 13:20 - Home Medications Home Medications: Ambulatory Orders NK [No Known Home Medication] 06/03/16 Family Disease History - Family Disease History Family Disease History: Heart Disease: Mother ( 80 congestive heart failure) , CA: Sister (breast cancer), Other: Father ( 56 of CVA) Review of Systems - Review of Systems Constitutional: denies: Chills, Fever Eyes: denies: Blind Spots, Blurred Vision HENT: denies: Difficult Swallowing, Ear Discharge Neck: denies: Decreased ROM, Lumps Cardiovascular: denies: Chest Pain, Edema Respiratory: denies: Cough, Exercise Intolerance Gastrointestinal: reports: Abdominal Pain, Bloating, Constipation Genitourinary: denies: Burning, Discharge Breasts: denies: Pain, Skin Changes Musculoskeletal: denies: Back Pain, Muscle Pain Integumentary: denies: Blister, Bruising Neurological: denies: Change in LOC, Change in Speech Endocrine: denies: Excessive Sweating, Flushing Hematology/Lymphatic: denies: Easily Bruised, Excessive Bleeding Psychiatric: denies: Altered Sleep Pattern, Anxiety Physical Exam Vital Signs: Vital Signs Temperature 98.0 F 06/06/16 13:55 Pulse Rate 73 06/06/16 13:55 Respiratory Rate 20 06/06/16 13:55 Blood Pressure 124/60 06/06/16 11:00 O2 Sat by Pulse Oximetry (%) 95 06/03/16 21:22 Constitutional: Yes: No Distress, Calm Eyes: Yes: WNL, Conjunctiva Clear HENT: Yes: WNL, Atraumatic Neck: Yes: WNL, Supple Cardiovascular: Yes: WNL, Regular Rate and Rhythm Respiratory: Yes: Regular Gastrointestinal: Yes: Soft, Distention. No: Tenderness ...Rectal Exam: Yes: Other (on digital rectal exam, may have felt mass distally. rectal vault was relatively free of stool burden. with patient in right lateral decubitus position and prone jackknife I performed rigid proctoscopy but could not advance farther than 10cm because of rectal angulation.) Renal/: No: CVA Tenderness - Left, CVA Tenderness - Right Musculoskeletal: No: Joint Stiffness, Joint Swelling Extremities: No: Calf Tenderness, Erythema Integumentary: No: Erythema, Rash Neurological: Yes: Alert, Oriented Psychiatric: Yes: Alert, Oriented Labs: CBC, BMP 06/06/16 06:35 06/06/16 06:35 Imaging - Results Cat Scan: Report Reviewed, Image Reviewed Problem List - Problems (1) Obstipation Assessment/Plan: await golytely oral attempt can try tap water enema with liquid colace in it? if patient cannot tolerate oral golytely, would recommend flex sig or gastrograffin enema prior to any surgical intervention. Code(s): K59.00 - CONSTIPATION, UNSPECIFIED (2) Obstruction, colon Code(s): K56.60 - UNSPECIFIED INTESTINAL OBSTRUCTION
[2016-06-07] MEDS: ONDANSETRON 4 MG/2 ML VIAL IVPB PRN ×2 (02:21→08:30)
[2016-06-07] MEDS: SODIUM CHLORIDE 1,000 ML IV SCH (02:21)
[2016-06-07] MEDS: ACETAMINOPHEN 1000 MG/100 ML VIAL (NON FORMULARY) IVPB PRN ×3 (02:46→17:33)
[2016-06-07 08:38] LABS: MCH 29.9 pg (25.7-33.7); MCHC 33.4 g/dl (32.0-36.0); MEAN CELL VOLUME 89.4 fl (80-96); MEAN PLT VOLUME 8.3 fl (7.5-11.1); PLATELET COUNT 396 K/MM3 (134-434); RDW 15.4 % (11.6-15.6); WHITE BLOOD COUNT 9.1 K/mm3 (4.0-10.0)
[2016-06-07 09:11] LABS: CALCIUM 8.3 mg/dL (8.5-10.1); MAGNESIUM 2.3 mg/dL (1.8-2.4)
[2016-06-07 09:13] LABS: CREATININE 0.7 mg/dL (0.55-1.02); PHOSPHOROUS 2.8 mg/dL (2.5-4.9)
[2016-06-07] MEDS: FAMOTIDINE 20 MG/50 ML IVPB 50 ML IVPB SCH ×2 (09:52→21:44)
[2016-06-07] MEDS ORDERED: ENOXAPARIN NA (PORCINE) 40 MG/0.4 ML DISP.SYRIN SQ SCH (10:00)
[2016-06-07] MEDS ORDERED: METOCLOPRAMIDE HCL INJECTION 10 MG/2 ML VIAL IVPUSH PRN (10:50)
--- NOTE | 2016-06-07 12:00 | PN ---
GI Progress Note Subjective: GI NOte: Dr Knight's and Dr Harris's notes are appeciated. Diverting colostomy deferred when Poonam had a BM and relief of some of her distension yesterday. Used this opportunity to resume her Golytely drip. This had to be stopped after 900cc when she again developed distension and pain. FUA reveals a distended colon but no pneumoperitoneum or critical cecal distension - Objective Vital Signs: Vital Signs Temperature 97.4 F L 06/07/16 10:30 Pulse Rate 69 06/07/16 10:30 Respiratory Rate 20 06/07/16 10:30 Blood Pressure 144/73 06/07/16 10:30 O2 Sat by Pulse Oximetry (%) 95 06/03/16 21:22 Constitutional: Anxious Gastrointestinal Inspection: Yes: Distention ...Auscultate: Yes: Hypoactive Bowel Sounds ...Palpate: Yes: Other (nonetender) ...Percussion: Yes: Tympanitic Labs: CBC, BMP 06/07/16 07:10 06/07/16 07:10 INR, PTT INR 1.32 (0.82-1.09) H 06/06/16 06:35 Assessment/Plan Obstructing fecal impaction. Unfortunately radiology has again refused to do a gastrograffin enema. Awaiting return call from Dr Shen. If GGE does not occur then I have explained to Poonam and her that we will attempt a flexible sigmoidoscopy tomorrow. She is aware of the risks of perforation. Will resume tap water and mineral oil enemas in hopes of further relief of this impaction. Discussed care with resident and Dr Knight. Problem List - Problems (1) Change in bowel habits Code(s): R19.4 - CHANGE IN BOWEL HABIT
--- NOTE | 2016-06-07 12:52 | PN ---
Progress Note (short form) - Note Progress Note: GI : Spoke with Dr Shen who after reviewing the films believes there is a upper rectal obstructing cancer. He advised a repeat CT scan rather than GGE which I have ordered. Discussed with Dr Dawson who will inform the surgeon. Problem List - Problems (1) Change in bowel habits Code(s): R19.4 - CHANGE IN BOWEL HABIT
--- NOTE | 2016-06-07 14:17 | PN ---
Progress Note, Physician Chief Complaint: worse abd pain History of Present Illness: CT re-read as obstructing rectal lesion consistent with UTE yesterday. patient feels more distended. - Current Medication List Current Medications: Active Medications Acetaminophen (Ofirmev Injection -) 1,000 mg IVPB Q6H PRN PRN Reason: FEVER OR PAIN Stop: 06/08/16 04:50 Last Admin: 06/07/16 11:01 Dose: 1,000 mg Benzocaine/Menthol (Cepacol Lozenge -) 1 each MM Q1H PRN PRN Reason: SORE THROAT Last Admin: 06/04/16 12:37 Dose: 1 each Famotidine/Sodium Chloride (Pepcid 20 Mg Premixed Ivpb -) 50 mls @ 100 mls/hr IVPB BID SHRUTHI Last Admin: 06/07/16 09:52 Dose: 100 mls/hr Dextrose/Sodium Chloride (D5-1/2ns -) 1,000 mls @ 125 mls/hr IV ASDIR SHRUTHI Ondansetron HCl (Zofran Injection) 4 mg IVPB Q6H PRN PRN Reason: NAUSEA Last Admin: 06/07/16 08:30 Dose: 4 mg - Objective Vital Signs: Vital Signs Temperature 97.6 F 06/07/16 14:00 Pulse Rate 70 06/07/16 14:00 Respiratory Rate 18 06/07/16 14:00 Blood Pressure 144/73 06/07/16 10:30 O2 Sat by Pulse Oximetry (%) 95 06/03/16 21:22 Constitutional: Yes: No Distress, Calm Eyes: Yes: Conjunctiva Clear, EOM Intact HENT: Yes: Atraumatic, Normocephalic Neck: Yes: Supple, Trachea Midline Cardiovascular: Yes: Regular Rate and Rhythm Respiratory: Yes: Regular Gastrointestinal: Yes: Soft, Distention. No: Tenderness ...Rectal Exam: Yes: Deferred Genitourinary: No: CVA Tenderness - Left, CVA Tenderness - Right Breast(s): No: Nipple Inversion, Skin Changes Musculoskeletal: No: Joint Stiffness, Joint Swelling Extremities: No: Calf Tenderness, External Rotation Integumentary: No: Erythema, Rash Neurological: Yes: Alert, Oriented Psychiatric: Yes: Alert, Oriented Labs: CBC, BMP 06/07/16 07:10 06/07/16 07:10 INR, PTT INR 1.32 (0.82-1.09) H 06/06/16 06:35 Problem List - Problems (1) Obstipation Code(s): K59.00 - CONSTIPATION, UNSPECIFIED (2) Obstruction, colon Assessment/Plan: poss obstructing rectal neoplasm for flex sig to confirm diagnosis. If + will perform laparoscopic possible open colostomy creation tomorrow. If - will have benefits of lavaging patient to aide in relief of constipation. explained risks of perforation/blowout to patient and she understands risk and wishes to proceed. I explained why I would prefer to do it as same time as surgery as if I blow more air into colon higher likelihood of going open. if cancer and if diverted, next step is to ascertain clinical significance of liver lesions. Will d/w radiology whether or not amenable to CT guided biopsy or if MRI would be more helpful. this can be done after treatment of her symptomatic obstruction. case d/w pt, and GI Code(s): K56.60 - UNSPECIFIED INTESTINAL OBSTRUCTION
--- NOTE | 2016-06-07 14:20 | PN ---
Progress Note (short form) - Note Progress Note: No new events NPO NG tube in place On review of CT, radiology suspects an obstructing rectal cancer GI following Vital Signs Period Temp Pulse Resp BP Sys/Mead Pulse Ox Last 24 Hr 97 F-97.7 F 69-90 18-20 136-147/60-78 Abd distended, no rebound CBC, BMP 06/07/16 07:10 06/07/16 07:10 Colorectal surgery- Dr Harris following Based on findings of rectal cancer, will defer management to Dr. Hon Dr Harris agrees Patient aware
[2016-06-07] MEDS ORDERED: PROPOFOL 20 ML ONE (14:35)
--- NOTE | 2016-06-07 15:42 | OP ---
Operative Note - Note: Operative Date: 06/07/16 Pre-Operative Diagnosis: large bowel obstruction Operation: flexible sigmoidoscopy with biopsy Findings: near obstructing lesion at approx 12-15cm from anal verge in mid/upper rectum Post-Operative Diagnosis: Other (malignant rectal neoplasm) Surgeon: John Harris Anesthesia: General Specimens Removed: mass biopsy
--- NOTE | 2016-06-07 15:45 | PN ---
Teaching Attending Note Name of Resident: Suma Dawson ATTENDING PHYSICIAN STATEMENT I saw and evaluated the patient. I reviewed the resident's note and discussed the case with the resident. I agree with the resident's findings and plan as documented. SUBJECTIVE:more pain today than yesterday assoc with nausea. states no episodes of vomiting. had 1 BM yesterday. denies CP, SOB,fever, chills, V/D OBJECTIVE: Last Vital Signs Temp Pulse Resp BP Pulse Ox 97.6 F 70 18 144/73 95 06/07/16 14:00 06/07/16 14:00 06/07/16 14:00 06/07/16 10:30 06/07/16 09:00 General NAD ABdomen soft distended hyporactive BS. tympanic ASSESSMENT AND PLAN: 80yo F wtih no PMH presented to the ER and was admitted for further evaluation of their emergent condition 1. SBO- with fecal impaction. had BM yesterday after soap suds enema. given golyteyl which again she did not tolerate. plan for gastrograffin enema which was not done. discussion with GI and surgery. agree with high concern for malignancy due to possible rectal mass and liver lesion. plan is for flex sigmoidoscopy today. pending on what is seen will determine if surgery is warranted at this time. will ultimately require further classification of liver lesion either with CT guided bx vs MRI. IVF, pain/nausea control 2. Hypokalemia- KCl IV 3. asymptomatic hypernatremia- fecal impaction/sbo. on IVF 4. DVT ppx- SCD
--- NOTE | 2016-06-07 15:45 | CONSULT ---
Consult - text type - Consultation Consultation Note: flex sig shows likely malignant rectal neoplasm. reviewed CT with radiologist, suspicion for liver mets. plan lap poss open colostomy tomorrow ruq ultrasound to eval vascularity of lesions in liver U/S guided biopsy of liver on sunday.
[2016-06-07] MEDS: DEXTROSE 5%-0.45% SALINE 1,000 ML IV SCH (17:05)
[2016-06-07] MEDS ORDERED: morphine CARPU-JECT 2 MG/1 ML DISP.SYRIN IVPUSH PRN (21:47)
--- NOTE | 2016-06-07 21:48 | PN ---
Physical Exam: SUBJECTIVE: Had 1 BM yesterday. Patient seen and examined at bed side. patient reports more abdominal discomfort and Nausea, no vomiting. one large Bowel yesterday. Denies CP, SOB,fever, chills, V/D surgery, radiology, GI discussed case and feel it may be a a malignant rectal neoplasm. Dr. Harris for Flex Sig today , and Lap possibly open colostomy tomorrow. U/S guided biopsy of liver on sunday. OBJECTIVE: Vital Signs Period Temp Pulse Resp BP Sys/Mead Pulse Ox Last 24 Hr 97 F-98.1 F 63-90 18-20 112-153/49-78 95-99 GENERAL: Awake, alert, and fully oriented, in mild acute distress. HEAD: Normal with no signs of trauma. EYES: extraocular movements intact, sclera anicteric, conjunctiva clear. EARS, NOSE, THROAT: +nasogastric tube inserted with dark green, Ears normal, nares patent, oropharynx clear without exudates. Moist mucous membranes. NECK: Normal range of motion, supple without lymphadenopathy, JVD, or masses. LUNGS: Breath sounds equal, clear to auscultation bilaterally. no wheezes, and + crackles right lung base. No accessory muscle use. HEART: Regular rate and rhythm, normal S1 and S2 without murmur, rub or gallop. ABDOMEN: : more distended than yesterday, Hypoactive Bowel Sounds, +abdominal tenderness to palpation with guarding, + tympanic to percussion. No hepatomegaly or splenomegaly appreciated. MUSCULOSKELETAL: Normal range of motion at all joints. No bony deformities or tenderness. No CVA tenderness. LOWER EXTREMITIES: 2+ pulses, warm, well-perfused. No calf tenderness. No peripheral edema. NEUROLOGICAL: Normal speech. no gross focal neurological deficit. PSYCHIATRIC: Cooperative. Good eye contact. Appropriate mood and affect. SKIN: Warm, dry, decreased turgor, no rashes or lesions noted. Laboratory Results - last 24 hr 06/06/16 06/07/16 06/07/16 06:35 07:10 07:10 WBC 9.1 RBC 4.04 Hgb 12.1 Hct 36.2 MCV 89.4 MCHC 33.4 RDW 15.4 Plt Count 396 MPV 8.3 Sodium 148 H Potassium 3.3 L Chloride 111 H Carbon Dioxide 20 L Anion Gap 17 H BUN 22 H Creatinine 0.7 Random Glucose 86 Calcium 8.3 L Phosphorus 2.8 Magnesium 2.3 Carcinoembryonic Ag 5.8 H Active Medications Generic Name Dose Route Start Last Admin Trade Name Angel PRN Reason Stop Dose Admin Acetaminophen 1,000 mg 06/07/16 10:49 06/07/16 17:33 Ofirmev Injection - IVPB 06/08/16 04:50 1,000 mg Q6H PRN Administration FEVER OR PAIN Benzocaine/Menthol 1 each 06/04/16 11:43 06/04/16 12:37 Cepacol Lozenge - MM 1 each Q1H PRN Administration SORE THROAT Famotidine/Sodium Chloride 50 mls @ 100 mls/hr 06/03/16 22:00 06/07/16 21:44 Pepcid 20 Mg Premixed Ivpb - IVPB 100 mls/hr BID SHRUTHI Administration Dextrose/Sodium Chloride 1,000 mls @ 125 mls/hr 06/07/16 13:00 06/07/16 17:05 D5-1/2ns - IV 125 mls/hr ASDIR SHRUTHI Administration Morphine Sulfate 1 mg 06/07/16 21:47 Morphine Injection - IVPUSH Q4H PRN PAIN Ondansetron HCl 4 mg 06/03/16 20:34 06/07/16 08:30 Zofran Injection IVPB 4 mg Q6H PRN Administration NAUSEA ASSESSMENT/PLAN: 80 year old female with complaint of constipation and lower abdominal pain for 2 weeks found to have high grad Bowel obstruction with a possibility of an obstructing colon cancer with liver mets. Acute marked fecal impaction:2/2 malignant rectal neoplasm w/ possible mets to liver: appears to be resulting in mild dilatation of the small bowel loops/ ileus and suggestion of thickening of the distal sigmoid colon wall. -keep NPO with NG tube in place -Surgery plan for tomorrow per Dr. Harris, inlight of of flex sig. -consider Triple phase CT scan of the liver per GI. -OOB at tolerated. -started morphine and cont Ofirmev 1,000mg q6h PRN. -Cont Zofran and started Reglan for Nausea - CEA 5.8 hypernatremia in the setting of fecal impaction possibly 2/2 malignant rectal neoplasm w/ possible mets to liver: elevated Na secondary to IV fluids. monitor labs. will consider to d/c IV NS. hyponatremia: 3.3 today -KCl IVpb Tachycardia: likely secondary to pain. CEA mildly elevated likely secondary to Neuoplasm Leukocytois: with left shift, possibly secondary to margination no antibiotics at this time. GI/DVT prophylaxis OOB NPO Dispo: surgery tomorrow Visit type - Emergency Visit Emergency Visit: Yes ED Registration Date: 06/03/16 Care time: The patient presented to the Emergency Department on the above date and was hospitalized for further evaluation of their emergent condition. - New Patient This patient is new to me today: No - Critical Care Critical Care patient: No
[2016-06-08] MEDS: ACETAMINOPHEN 1000 MG/100 ML VIAL (NON FORMULARY) IVPB PRN (00:08)
[2016-06-08] MEDS ORDERED: CEFAZOLIN (PRE-DOCKED) 50 ML IVPB SCH (01:00)
[2016-06-08] MEDS ORDERED: KCL 10 MEQ IVPB 100 ML IVPB SCH ×2 (05:15→14:30)
[2016-06-08] MEDS: ONDANSETRON 4 MG/2 ML VIAL IVPB PRN ×2 (05:56→21:15)
[2016-06-08 08:47] LABS: BASOPHIL 0.7 % (0-2.0); EOSINOPHIL 1.6 % (0-4.5); MCHC 33.8 g/dl (32.0-36.0); MEAN CELL VOLUME 88.7 fl (80-96); MEAN PLT VOLUME 8.2 fl (7.5-11.1); PLATELET COUNT 455 K/MM3 (134-434); RDW 14.9 % (11.6-15.6); WHITE BLOOD COUNT 10.5 K/mm3 (4.0-10.0)
[2016-06-08 08:56] LABS: INR 1.1 (0.82-1.09); PROTHROMBIN TIME (PATIENT) 12.1 SEC (9.98-11.88)
[2016-06-08 08:59] LABS: ALBUMIN 2.6 g/dl (3.4-5.0); ANION GAP 11 (8-16); CALCIUM 8.3 mg/dL (8.5-10.1); CO2 26 mmol/L (21-32); GLUCOSE,RANDOM 157 mg/dL (74-106); MAGNESIUM 2.1 mg/dL (1.8-2.4)
[2016-06-08 09:02] LABS: ALK PHOS 61 U/L (45-117); BILIRUBIN,TOTAL 0.4 mg/dL (0.2-1.0); CREATININE 0.7 mg/dL (0.55-1.02); PHOSPHOROUS 1.9 mg/dL (2.5-4.9); SGOT/AST 17 U/L (15-37); SGPT/ALT 17 U/L (12-78); TOT PROT 5.8 g/dl (6.4-8.2)
[2016-06-08] MEDS: FAMOTIDINE 20 MG/50 ML IVPB 50 ML IVPB SCH ×2 (11:01→23:35)
[2016-06-08] MEDS: DEXTROSE 5%-0.45% SALINE 1,000 ML IV SCH ×2 (11:04→14:30)
--- NOTE | 2016-06-08 13:09 | PN ---
Teaching Attending Note Name of Resident: Suma Dawson ATTENDING PHYSICIAN STATEMENT I saw and evaluated the patient. I reviewed the resident's note and discussed the case with the resident. I agree with the resident's findings and plan as documented. SUBJECTIVE:continues to have abdominal distention and discomfort. no BM, flatus. denies CP, SOB,fever, chills OBJECTIVE: Last Vital Signs Temp Pulse Resp BP Pulse Ox 97.7 F 76 20 136/80 99 06/08/16 06:00 06/08/16 10:06/08/16 10:06/08/16 10:06/07/16 21:00 General NAD ABdomen soft distended hyporactive BS. tympanic ASSESSMENT AND PLAN: 80yo F wtih no PMH presented to the ER and was admitted for further evaluation of their emergent condition 1. Rectal mass-seen on flex sig yesterday, high suspicion for malignancy, in conjunction with liver lesion. CEA only mildly elevated. plan for rectal resection today. dedicated u/s to further characterize liver lesion, will likely require bx, plan for sunday. f/u post-op. IVF, pain/nausea control 2. Hypokalemia- KCl IV 3. asymptomatic hypernatremia- fecal impaction/sbo. improved 4. DVT ppx- SCD
[2016-06-08] MEDS ORDERED: POTASSIUM CHLORIDE 20 MEQ PREMIX IVPB 100 ML IVPB ONE (13:40)
--- NOTE | 2016-06-08 13:42 | PN ---
Physical Exam: SUBJECTIVE: Patient seen and examined at bed side. patient reports abdominal discomfort, distention and Nausea, no vomiting. no BM, flatus Denies CP, SOB,fever, chills, surgery today for Lap possibly open colostom (Dr. Harris), possible malignant rectal neoplasm. U/S guided biopsy of liver on Sunday. OBJECTIVE: Vital Signs Period Temp Pulse Resp BP Sys/Mead Pulse Ox Last 24 Hr 97.6 F-98.5 F 60-76 18-20 112-153/49-80 95-99 GENERAL: Awake, alert, and fully oriented, in mild acute distress. HEAD: Normal with no signs of trauma. EYES: extraocular movements intact, sclera anicteric, conjunctiva clear. EARS, NOSE, THROAT: +nasogastric tube inserted with dark green, Ears normal, nares patent, oropharynx clear without exudates. Moist mucous membranes. NECK: Normal range of motion, supple without lymphadenopathy, JVD, or masses. LUNGS: Breath sounds equal, clear to auscultation bilaterally. no wheezes, and + crackles right lung base. No accessory muscle use. HEART: Regular rate and rhythm, normal S1 and S2 without murmur, rub or gallop. ABDOMEN: : distended, Hypoactive Bowel Sounds, +abdominal tenderness to palpation with guarding, + tympanic to percussion. No hepatomegaly or splenomegaly appreciated. MUSCULOSKELETAL: Normal range of motion at all joints. No bony deformities or tenderness. No CVA tenderness. LOWER EXTREMITIES: 2+ pulses, warm, well-perfused. No calf tenderness. No peripheral edema. NEUROLOGICAL: Normal speech. no gross focal neurological deficit. PSYCHIATRIC: Cooperative. Good eye contact. Appropriate mood and affect. SKIN: Warm, dry, decreased turgor, no rashes or lesions noted. Laboratory Results - last 24 hr 06/08/16 06/08/16 06/08/16 07:45 07:45 07:45 WBC 10.5 H RBC 4.30 Hgb 12.9 Hct 38.1 MCV 88.7 MCHC 33.8 RDW 14.9 Plt Count 455 H MPV 8.2 Neutrophils % 80.0 Lymphocytes % 9.5 Monocytes % 8.2 Eosinophils % 1.6 D Basophils % 0.7 INR 1.10 Sodium 144 Potassium 3.3 L Chloride 107 Carbon Dioxide 26 D Anion Gap 11 BUN 17 D Creatinine 0.7 Creat Clearance w eGFR > 60 Random Glucose 157 H D Calcium 8.3 L Phosphorus 1.9 L D Magnesium 2.1 Total Bilirubin 0.4 AST 17 ALT 17 Alkaline Phosphatase 61 Total Protein 5.8 L Albumin 2.6 L Active Medications Generic Name Dose Route Start Last Admin Trade Name Freq PRN Reason Stop Dose Admin Benzocaine/Menthol 1 each 06/04/16 11:43 06/04/16 12:37 Cepacol Lozenge - MM 1 each Q1H PRN Administration SORE THROAT Famotidine/Sodium Chloride 50 mls @ 100 mls/hr 06/03/16 22:00 06/08/16 11:01 Pepcid 20 Mg Premixed Ivpb - IVPB 100 mls/hr BID SHRUTHI Administration Dextrose/Sodium Chloride 1,000 mls @ 125 mls/hr 06/07/16 13:00 06/08/16 11:04 D5-1/2ns - IV 125 mls/hr ASDIR SHRUTHI Administration Morphine Sulfate 1 mg 06/07/16 21:47 06/08/16 05:43 Morphine Injection - IVPUSH 1 mg Q4H PRN Administration PAIN Ondansetron HCl 4 mg 06/03/16 20:34 06/08/16 05:56 Zofran Injection IVPB 4 mg Q6H PRN Administration NAUSEA ABdomen soft distended hyporactive BS. tympanic ASSESSMENT AND PLAN: 80yo F wtih no PMH presented to the ER and was admitted for further evaluation of their emergent condition 1. Rectal mass-seen on flex sig yesterday, high suspicion for malignancy, in conjunction with liver lesion. CEA only mildly elevated. plan for rectal resection today. dedicated u/s to further characterize liver lesion, will likely require bx, plan for sunday. f/u post-op. IVF, pain/nausea control 2. Hypokalemia- KCl IV 3. asymptomatic hypernatremia- fecal impaction/sbo. improved 4. DVT ppx- SCD ASSESSMENT/PLAN: 80 year old female with complaint of constipation and lower abdominal pain for 2 weeks found to have high grad Bowel obstruction with a possibility of an obstructing colon cancer with liver mets. Acute marked fecal impaction:2/2 malignant rectal neoplasm w/ possible mets to liver: appears to be resulting in mild dilatation of the small bowel loops/ ileus and suggestion of thickening of the distal sigmoid colon wall. -keep NPO with NG tube in place -Surgery plan for today per Dr. Harris, inlight of of flex sig. -consider Triple phase CT scan of the liver per GI. -cont morphine and cont Ofirmev 1,000mg q6h PRN. -Cont Zofran and started Reglan for Nausea -CEA 5.8 hypernatremia in the setting of fecal impaction possibly 2/2 malignant rectal neoplasm w/ possible mets to liver: elevated Na secondary to IV fluids. patietn will NPO post surgery will treat with D5w IV monitor labs. hypokelmia 3.3 today -consider KCl IVpb Tachycardia: likely secondary to pain. CEA mildly elevated likely secondary to Neuoplasm Leukocytois: with left shift, possibly secondary to margination no antibiotics at this time. GI/DVT prophylaxis OOB NPO Dispo: surgery today Visit type - Emergency Visit Emergency Visit: Yes ED Registration Date: 06/03/16 Care time: The patient presented to the Emergency Department on the above date and was hospitalized for further evaluation of their emergent condition. - New Patient This patient is new to me today: No - Critical Care Critical Care patient: No
[2016-06-08] MEDS ORDERED: POTASSIUM PHOSPHATE 20 MM in DEXTROSE 5%-WATER - 250 ML IVPB ONE (14:30)
[2016-06-08] MEDS: KCL 10 MEQ IVPB 100 ML IVPB SCH (14:32)
[2016-06-08] MEDS ORDERED: MIDAZOLAM HCL 2 MG/2 ML SINGLE DOSE VIAL ONE (16:26)
[2016-06-08] MEDS ORDERED: PROPOFOL 20 ML ONE ×2 (16:26)
[2016-06-08] MEDS ORDERED: SUCCINYLCHOLINE CHLORIDE 200 MG/10 ML VIAL ONE (16:26)
[2016-06-08] MEDS ORDERED: ROCURONIUM BROMIDE 50 MG/5 ML VIAL ONE (16:26)
[2016-06-08] MEDS: ceFAZolin SODIUM 1 GM VIAL IVPB ONE (16:42)
[2016-06-08] MEDS ORDERED: METRONIDAZOLE 500 MG PREMIXED 500 MG/100 ML MG IVPB ONE (16:47)
[2016-06-08] MEDS ORDERED: PHENYLEPHRINE HCL 10 MG/1 ML SINGLE DOSE VIAL ONE (16:47)
[2016-06-08] MEDS ORDERED: METRONIDAZOLE 500 MG PREMIXED 100 ML IVPB ONE (16:48)
[2016-06-08] MEDS ORDERED: ceFAZolin SODIUM 1 GM VIAL ONE (16:49)
[2016-06-08] MEDS ORDERED: METOPROLOL TARTRATE 5 MG/5 ML VIAL ONE (17:44)
[2016-06-08] MEDS ORDERED: DEXTROSE 5%-WATER - 1,000 ML IV SCH ×2 (17:45→21:10)
[2016-06-08] MEDS ORDERED: NEOSTIGMINE METHYLSULFATE 0.5 MG/ML - 10 ML MDV ONE (19:04)
--- NOTE | 2016-06-08 19:09 | OP ---
Operative Note - Note: Operative Date: 06/08/16 Pre-Operative Diagnosis: malignant rectal neoplasm, obstructing Operation: laparoscopic converted to open creation of end colostomy, biopsy of small bowel mesentery implant, placement of retention sutures. Findings: large pelvic tumor. 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 clinically positive lymphadenopathy in mesentery. Post-Operative Diagnosis: Same as Pre-op Surgeon: John Harris Editing Internship: Harry Garcia Anesthesia: General Estimated Blood Loss (mls): 100
[2016-06-08] MEDS ORDERED: LACTATED RINGERS SOLUTION 1,000 ML IV SCH (19:45)
[2016-06-08] MEDS ORDERED: ACETAMINOPHEN 1000 MG/100 ML VIAL (NON FORMULARY) IVPB ONE (19:46)
--- NOTE | 2016-06-08 19:51 | SURG ---
Surgery Store Custodian Note Store Custodian: Harry Garcia PA-C Date of Service: 06/08/16 Diagnosis: Small bowel obstruction, malignant rectal neoplasm Procedure: Laparoscopic converted to open creation of end colostomy, biopsy of small bowel mesentery implant, placement of retention sutures I was present for the entirety of the operative procedure. For further detail, please refer to operative report. Visit type - Case Type Case Type: ED Admission - Emergency Emergency Visit: Yes ED Registration Date: 06/03/16 Care time: The patient presented to the Emergency Department on the above date and was hospitalized for further evaluation of their emergent condition. - New patient This patient is new to me today: Yes Date on this admission: 06/08/16
[2016-06-08] MEDS ORDERED: HYDROmorphone *PCA* 10MG/50ML DISP.SYRIN PCA ONE (20:44)
[2016-06-08] MEDS ORDERED: HYDROmorphone *PCA* 10MG/50ML DISP.SYRIN PCA SCH (20:45)
[2016-06-08] MEDS ORDERED: BENZOCAINE/MENTH/CETYLPYRD CL 1 EACH LOZENGE MM PRN (21:10)
[2016-06-08] MEDS ORDERED: ACETAMINOPHEN INJECTION 100 ML IVPB ONE (21:13)
[2016-06-08] MEDS ORDERED: ONDANSETRON 4 MG/2 ML VIAL ONE (21:13)
[2016-06-08] MEDS ORDERED: PROMETHAZINE HCL 25 MG/1 ML VIAL ONE (21:44)
[2016-06-09] MEDS: CEFAZOLIN (PRE-DOCKED) 50 ML IVPB SCH ×2 (01:25→08:47)
[2016-06-09] MEDS: HEPARIN NA (PORCINE) 5,000 UNITS/ML 1ML VIAL SQ SCH ×3 (01:25→17:46)
[2016-06-09] MEDS: LACTATED RINGERS SOLUTION 1,000 ML IV SCH ×2 (07:36→20:45)
[2016-06-09] MEDS: KCL 10 MEQ IVPB 100 ML IVPB SCH (07:38)
[2016-06-09 08:20] LABS: MCH 29.6 pg (25.7-33.7); MCHC 33.2 g/dl (32.0-36.0); MEAN CELL VOLUME 89.1 fl (80-96); MEAN PLT VOLUME 8.3 fl (7.5-11.1); PLATELET COUNT 356 K/MM3 (134-434); RDW 14.9 % (11.6-15.6); WHITE BLOOD COUNT 14.1 K/mm3 (4.0-10.0)
--- NOTE | 2016-06-09 08:40 | PN ---
Progress Note (short form) - Note Progress Note: Anesthesia postop note 80y/o F s/p GA for Open ostomy creation POD#1, alert and awake, reports some pain, instructed to use the machine spreader, vss, NGT on. No anesthesia complications. Will continue machine spreader.
[2016-06-09 09:08] LABS: CALCIUM 7.9 mg/dL (8.5-10.1); CREATININE 0.9 mg/dL (0.55-1.02); MAGNESIUM 1.8 mg/dL (1.8-2.4); PHOSPHOROUS 3.3 mg/dL (2.5-4.9)
[2016-06-09] MEDS: ceFAZolin SODIUM 1 GM VIAL IVPB ONE (09:58)
[2016-06-09] MEDS: FAMOTIDINE 20 MG/50 ML IVPB 50 ML IVPB SCH ×2 (10:03→21:39)
--- NOTE | 2016-06-09 11:17 | PN ---
Progress Note, Physician Chief Complaint: hungry History of Present Illness: ngt output scant. alot of ostomy output in PACU last night. pain with moving. - Current Medication List Current Medications: Active Medications Benzocaine/Menthol (Cepacol Lozenge -) 1 each MM Q1H PRN PRN Reason: SORE THROAT Heparin Sodium (Porcine) (Heparin -) 5,000 unit SQ Q8H-IV SHRUTHI Last Admin: 06/09/16 10:03 Dose: 5,000 unit Hydromorphone HCl (Dilaudid Fund Controller -) 10 mg LINEN GRADER LINEN GRADER SHRUTHI PRN Reason: Protocol Stop: 06/11/16 20:44 Last Admin: 06/08/16 21:00 Dose: 10 mg Lactated Ringer's (Lactated Ringers Solution) 1,000 mls @ 125 mls/hr IV ASDIR SHRUTHI Last Admin: 06/09/16 07:36 Dose: Not Given Dextrose (D5w -) 1,000 mls @ 75 mls/hr IV ASDIR SHRUTHI Last Admin: 06/09/16 07:36 Dose: Not Given Famotidine/Sodium Chloride (Pepcid 20 Mg Premixed Ivpb -) 50 mls @ 100 mls/hr IVPB BID SHRUTHI Last Admin: 06/09/16 10:03 Dose: 100 mls/hr Morphine Sulfate (Morphine Injection -) 1 mg IVPUSH Q4H PRN PRN Reason: PAIN Ondansetron HCl (Zofran Injection) 4 mg IVPB Q6H PRN PRN Reason: NAUSEA - Objective Vital Signs: Vital Signs Temperature 97.6 F 06/09/16 05:56 Pulse Rate 100 H 06/09/16 07:00 Respiratory Rate 18 06/09/16 07:00 Blood Pressure 106/72 06/09/16 07:00 O2 Sat by Pulse Oximetry (%) 96 06/08/16 23:15 Gastrointestinal: Yes: Soft, Distention, Tenderness, Other (ostomy viable, min output) Wound/Incision: Yes: Dressing Dry and Intact Labs: CBC, BMP 06/09/16 07:40 06/09/16 07:40 INR, PTT INR 1.10 (0.82-1.09) 06/08/16 07:45 Problem List - Problems (1) Obstipation Code(s): K59.00 - CONSTIPATION, UNSPECIFIED (2) Obstruction, colon Code(s): K56.60 - UNSPECIFIED INTESTINAL OBSTRUCTION (3) Rectal malignant neoplasm Assessment/Plan: ngt removed trial clear liquid diet cont LINEN GRADER OOBTC as tolerated d/c sigala Code(s): C20 - MALIGNANT NEOPLASM OF RECTUM
--- NOTE | 2016-06-09 12:01 | PATH ---
Surgical Pathology Report Patient Name: MARITZA CROWDER Med. Rec. #: [id number] /Age/Gender: 1935 (Age: 80) / F Account: [id number] Location: [address] [place] [address] Taken: 06/07/2016 Received: 06/08/2016 Reported: 06/09/2016 Physicians: John Harris MD Specimen(s) Received BX RECTAL NEOPLASM Clinical History Large bowel obstruction Final Diagnosis RECTUM, NEOPLASM, BIOPSY: ADENOCARCINOMA, MODERATELY DIFFERENTIATED (LOW GRADE), WITH MUCINOUS FEATURES. Comment: DNA Mismatch Repair (MMR) protein expression analysis by IHC is pending; results will be reported in an addendum. The case was discussed with Dr. Harris on 06/19/16. Electronically Signed Javier Bell M.D. Addendum Reported: 06/14/2016 Addendum Diagnosis DNA Mismatch Repair (MMR) protein expression analysis by IHC performed at the [place], [place] ([id number]) and interpreted [facility] shows the following: Results: hMLH-1 DNA Mismatch Repair Protein: Intact nuclear expression hMSH-2 DNA Mismatch Repair Protein: Intact nuclear expression hMSH-6 DNA Mismatch Repair Protein: Intact nuclear expression PMS2 DNA Mismatch Repair Protein: Intact nuclear expression Interpretation: No defect in DNA Mismatch Repair (MMR) protein expression is identified by IHC. This result is usually seen in MSI-H stable tumors and is not associated with HNPCC (Huff syndrome). Javier Bell M.D. Gross Description Received in formalin, labeled "biopsy of rectal neoplasm" are 3 rodgers, irregular portions of soft tissue ranging from 0.2-0.3 cm. in greatest dimension. The specimens are submitted in toto in one cassette. 06/08/201606/08/2016
--- NOTE | 2016-06-09 14:39 | PN ---
GI Progress Note Subjective: GI NOte: Feels great relief after creation of the colostomy. Dr Harris's efforts are appreciated. He biopsied a suspected met to [facility] small bowel and saw what may be a metastasis to the ovary as well. Poonam is tolerating liquids. I discussed the findings with her and informed her that there was evidence of local spread and that she has 2 spots in the liver that apperas more likely hemangiomas than mets but that this will need a contrast CT and possibly a biopsy. I have told her that she will likely need chemotherapy and will consult oncology. - Objective Vital Signs: Vital Signs Temperature 97.7 F 06/09/16 13:53 Pulse Rate 101 H 06/09/16 13:53 Respiratory Rate 20 06/09/16 13:53 Blood Pressure 112/62 06/09/16 13:53 O2 Sat by Pulse Oximetry (%) 96 06/08/16 23:15 Constitutional: Calm Gastrointestinal Inspection: Yes: Scars (functional LLQ colostomy and bandaged vertical midline incision ( not removed)) ...Auscultate: Yes: Hypoactive Bowel Sounds ...Palpate: Yes: Tenderness (at incision) Labs: CBC, BMP 06/09/16 07:40 06/09/16 07:40 INR, PTT INR 1.10 (0.82-1.09) 06/08/16 07:45 Laboratory Tests 06/06/16 06/08/16 06/09/16 06:35 07:45 07:40 WBC 14.1 H D Hgb 12.8 Total Bilirubin 0.4 AST 17 ALT 17 Alkaline Phosphatase 61 Carcinoembryonic Ag 5.8 H Assessment/Plan Day 1 s/p diverting colostomy for obstructing rectosigmoid tumor. I have consulted Dr Shah of Oncology and discussed the case with her. I will order a CT with hemangioma protocol to exclude liver mets. Will give Miralax to promote disempaction. Problem List - Problems (1) Change in bowel habits Code(s): R19.4 - CHANGE IN BOWEL HABIT (2) Liver masses Code(s): R16.0 - HEPATOMEGALY, NOT ELSEWHERE CLASSIFIED
--- NOTE | 2016-06-09 17:39 | PN ---
Physical Exam: SUBJECTIVE: Patient seen and examined Pt is awake and alert Pt post op day 1 Exp Lap No fever no chills no n/v No gas in ostomy bag, no passing gas by mouth NGT removed OBJECTIVE: Vital Signs Period Temp Pulse Resp BP Sys/Mead Pulse Ox Last 24 Hr 97.5 F-98.5 F 66-101 16-20 91-120/46-87 93-100 GENERAL: The patient is awake, alert, and fully oriented, in no acute distress. HEAD: Normal with no signs of trauma. LUNGS: Breath sounds equal, clear to auscultation bilaterally, no wheezes, no crackles, no accessory muscle use. HEART: Regular rate and rhythm, S1, S2 without murmur, rub or gallop. ABDOMEN: Soft, tender, distended, hypoactive bowel sounds, no guarding, no rebound, no hepatosplenomegaly, no masses. Ostomy in left abdomen. EXTREMITIES: 2+ pulses, warm, well-perfused, no edema. NEUROLOGICAL: . Normal speech, gait not observed. PSYCH: Normal mood, normal affect. SKIN: Warm, dry, normal turgor, no rashes or lesions noted Laboratory Results - last 24 hr 06/09/16 06/09/16 07:40 07:40 WBC 14.1 H D RBC 4.31 Hgb 12.8 Hct 38.4 MCV 89.1 MCHC 33.2 RDW 14.9 Plt Count 356 D MPV 8.3 Sodium 142 Potassium 4.6 D Chloride 107 Carbon Dioxide 26 Anion Gap 9 BUN 18 Creatinine 0.9 D Random Glucose 104 D Calcium 7.9 L Phosphorus 3.3 D Magnesium 1.8 Active Medications Generic Name Dose Route Start Last Admin Trade Name Freq PRN Reason Stop Dose Admin Benzocaine/Menthol 1 each 06/08/16 21:10 Cepacol Lozenge - MM Q1H PRN SORE THROAT Heparin Sodium (Porcine) 5,000 unit 06/09/16 02:00 06/09/16 10:03 Heparin - SQ 5,000 unit Q8H-IV SHRUTHI Administration Hydromorphone HCl 10 mg 06/08/16 20:45 06/08/16 21:00 Dilaudid Glass Furnace Tender - AMBULANCE DISPATCHER 06/11/16 20:44 10 mg AMBULANCE DISPATCHER SHRUTHI Administration Protocol Lactated Ringer's 1,000 mls @ 125 mls/hr 06/08/16 20:45 06/09/16 07:36 Lactated Ringers Solution IV Not Given ASDIR SHRUTHI Dextrose 1,000 mls @ 75 mls/hr 06/08/16 21:10 06/09/16 07:36 D5w - IV Not Given ASDIR SHRUTHI Famotidine/Sodium Chloride 50 mls @ 100 mls/hr 06/08/16 22:00 06/09/16 10:03 Pepcid 20 Mg Premixed Ivpb - IVPB 100 mls/hr BID SHRUTHI Administration Morphine Sulfate 1 mg 06/08/16 21:10 Morphine Injection - IVPUSH Q4H PRN PAIN Ondansetron HCl 4 mg 06/08/16 21:10 Zofran Injection IVPB Q6H PRN NAUSEA Polyethylene Glycol 17 gm 06/09/16 22:00 Miralax (For Daily Use) - PO BID SHRUTHI ASSESSMENT/PLAN: 80 year old female with with recent fecal impaction was found to have obstructing rectal neoplasm on flex sig, Pt is s/p LAparotomy with end colostomy Day 1 post op Laparotomy with end colostomy A large mass likely from ovarian origin was found with possible local invasion and positive mesenteric lymphadenopathy Dr Shah was consulted f/u pathology report Pt was advanced to clear liquid by surgery Pt was placed on Miralax by GI Monitor intake and output, has pain control by per surgery Zofran prn incentive spirometer Consider PT eval and treat Liver lesion suspicious for hemagioma r/o Metastasis CT abdomen with contrast ordered by GI to differentiate between mets and hemangioma Depending on result may needs CT guided biopsy Hem/onc Dr Shah in consulted CEA elevated Consider outpatient cancer workup including mammogram, US breast, colonoscopy. Leukocytosis likely due to inflammation post op Continue to monitor labs in am No antibiotic needed right now Hypokalemia resolved BMP in am Hypernatremia resolved labs in am FEN Fluid: LR wt 125ml/h Electrolytes: labs in am Nutrition: clear liquid, advance per surgery recommendation DVT prophylaxis: heparin sq tid Disposition: Keep in floor for pain control, diet tolerance, bowel function. Visit type - Emergency Visit Emergency Visit: Yes ED Registration Date: 06/03/16 Care time: The patient presented to the Emergency Department on the above date and was hospitalized for further evaluation of their emergent condition. - New Patient This patient is new to me today: Yes Date on this admission: 06/09/16 - Critical Care Critical Care patient: No - Discharge Referral Referred to [facility] Med [facility].C.: No
--- NOTE | 2016-06-09 18:16 | PN ---
Teaching Attending Note Name of Resident: Jace Viveros ATTENDING PHYSICIAN STATEMENT I saw and evaluated the patient. I reviewed the resident's note and discussed the case with the resident. I agree with the resident's findings and plan as documented. SUBJECTIVE:states she overall feels better but continues to have abdominal pain. requesting to eat. denies CP, SOB,fever, chills, no belching. no colonoscopy. had mammography several years ago reports negative OBJECTIVE: Last Vital Signs Temp Pulse Resp BP Pulse Ox 97.7 F 101 H 20 112/62 96 06/09/16 13:53 06/09/16 13:53 06/09/16 13:53 06/09/16 13:53 06/08/16 23:15 General NAD breast exam- no palpable nodules appreciated. no dimpling of the skin, nipples are not retracted ABdomen soft diffusely tender +LLQ colostomy with minimal liquid in bag. no BS ASSESSMENT AND PLAN: 80yo F wtih no PMH presented to the ER and was admitted for further evaluation of their emergent condition 1. Rectal mass-s/p exlap with colostomy POD #2. pelvic mass also seen which appeared to be ovary and mesenteric lymph nodes. NGT in place, management and advancement of diet per surgery. will start clinimix. will need MRI to further evaluate the liver as it appears to hemangiomas on u/s however due to high suspicion of malignancy will need to further characterize. will await when pt more medically optimized. will need further staging. pain/nausea control 2. Hypokalemia- resolved 3. asymptomatic hypernatremia- fecal impaction/sbo. improved 4. DVT ppx- hep sq
--- NOTE | 2016-06-09 18:48 | CONSULT ---
Consult - text type - Consultation Consultation Note: 80W comes in with severe constipation, bloating. She has diminished appetite only recently and denies weight loss. She has never had a colonoscopy or abdominal surgery. Does not see a doctor regularly - History Source History Provided By: Patient - Past Medical History Musculoskeletal: Yes: Chronic low back pain (lumbar disc disease) - Past Surgical History Additional Surgical History: bilateral mastoid surgeries - Smoking History Smoking history: Never smoked - Social History Usual Living Arrangement: With Spouse ADL: Independent Occupation: retired dental hygienist Home Medications - Allergies Allergies/Adverse Reactions: Allergies Allergy/AdvReac Type Severity Reaction Status Date / Time sulindac [From Clinoril] Allergy Unknown Rash Verified 06/03/16 22:28 CLINERAL Allergy Intermediate Hives Uncoded 06/03/16 13:20 - Home Medications Home Medications: Ambulatory Orders NK [No Known Home Medication] 06/03/16 Current Medications Benzocaine/Menthol (Cepacol Lozenge -) 1 each MM Q1H PRN PRN Reason: SORE THROAT Heparin Sodium (Porcine) (Heparin -) 5,000 unit SQ Q8H-IV SHRUTHI Last Admin: 06/10/16 09:09 Dose: 5,000 unit Hydromorphone HCl (Dilaudid Flare Breaker -) 10 mg STRIKE OUT MACHINE OPERATOR STRIKE OUT MACHINE OPERATOR SHRUTHI PRN Reason: Protocol Stop: 06/11/16 20:44 Last Admin: 06/08/16 21:00 Dose: 10 mg Lactated Ringer's (Lactated Ringers Solution) 1,000 mls @ 125 mls/hr IV ASDIR [facility] Last Admin: 06/10/16 09:09 Dose: 125 mls/hr Dextrose (D5w -) 1,000 mls @ 75 mls/hr IV ASDIR [facility] Last Admin: 06/09/16 07:36 Dose: Not Given Famotidine/Sodium Chloride (Pepcid 20 Mg Premixed Ivpb -) 50 mls @ 100 mls/hr IVPB BID [facility] Last Admin: 06/10/16 09:09 Dose: 100 mls/hr Morphine Sulfate (Morphine Injection -) 1 mg IVPUSH Q4H PRN PRN Reason: PAIN Ondansetron HCl (Zofran Injection) 4 mg IVPB Q6H PRN PRN Reason: NAUSEA Polyethylene Glycol (Miralax (For Daily Use) -) 17 gm PO BID [facility] Last Admin: 06/10/16 09:10 Dose: 17 grams Family Disease History - Family Disease History Family Disease History: Heart Disease: Mother ( 80 congestive heart failure) , CA: Sister (breast cancer), Other: Father ( 56 of CVA) Physical Exam-GI Constitutional: Yes: Anxious Eyes: Yes: Conjunctiva Clear HENT: Yes: Normocephalic Neck: Yes: Supple Cardiovascular: Yes: Regular Rate and Rhythm Respiratory: Yes: CTA Bilaterally Gastrointestinal Inspection: Yes: mild distention ...Auscultate: Yes: Hypoactive Bowel Sounds ...Palpate: soft, LLQ colostomy, midline incision with dressing Imaging - Results Cat Scan: Image Reviewed (two liver masses, marked fecal impaction, uterine fibroid) Assessment/Plan 80 y/o female presents with severe obstruction/bloating. Patient noted to have obstructing rectal mass 12 cm from anal verge s/p diverting colostomy, biopsy of small bowel mesentery implant, on 06/08 large pelvic tumor. 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 clinically positive lymphadenopathy in mesentery. discussed case with Dr. Braun and Dr. Harris case disussed with family ---based on operative finding seems like advanced disease. 2 lesions in liver may need further imaging to confirm ? hemangioma vs mets. PAthology of mesenteric implant is pending. may be a candidate for palliative chemotherapy with Xeloda based regiment based on clinical course, performance status. will check kras mutation status of tumor discussed with family
[2016-06-09] MEDS: POLYETHYLENE GLYCOL 3350 119 GM BTL PO SCH (21:39)
[2016-06-10] MEDS: HEPARIN NA (PORCINE) 5,000 UNITS/ML 1ML VIAL SQ SCH ×3 (01:40→18:14)
[2016-06-10] MEDS: LACTATED RINGERS SOLUTION 1,000 ML IV SCH ×3 (01:41→16:31)
[2016-06-10 07:54] LABS: BASOPHIL 0.4 % (0-2.0); EOSINOPHIL 2.9 % (0-4.5); MCH 30.2 pg (25.7-33.7); MEAN PLT VOLUME 8.7 fl (7.5-11.1); NEUTROPHILS 81.7 % (42.8-82.8); PLATELET COUNT 311 K/MM3 (134-434); RDW 15.1 % (11.6-15.6); WHITE BLOOD COUNT 10.9 K/mm3 (4.0-10.0)
[2016-06-10 08:16] LABS: ALBUMIN 1.9 g/dl (3.4-5.0); BILIRUBIN,DIRECT 0.1 mg/dL (0.0-0.2); CALCIUM 8.2 mg/dL (8.5-10.1); CREATININE 0.7 mg/dL (0.55-1.02)
[2016-06-10 08:23] LABS: BILIRUBIN,TOTAL 0.4 mg/dL (0.2-1.0); C-REACTIVE PROTEIN 26.7 MG/DL (0.00-0.3); TOT PROT 4.5 g/dl (6.4-8.2)
--- NOTE | 2016-06-10 09:00 | OP ---
DATE OF OPERATION: 06/08/2016 PREOPERATIVE DIAGNOSIS: Obstructing renal neoplasm. POSTOPERATIVE DIAGNOSIS: Obstructing renal neoplasm. PROCEDURE: Laparoscopic converted to open creation of end-colostomy with biopsy of small-bowel mesentery implant as well as closure with some retention sutures. SURGEON: Fredy Harris MD FLAG FOOTBALL COACH: DARREN Shaffer ANESTHESIA: General endotracheal anesthesia. ESTIMATED BLOOD LOSS: 100 mL. OPERATIVE FINDINGS: Patient had clinically positive adenopathy in the mesentery near the tumor and a large and hard ovary that was clinically suspicious. During the course of exploration, there appeared to be some small white implants in the small-bowel mesentery. These were sent for biopsy. I could not palpate any obvious lesions in the liver. OPERATIVE NOTE IN DETAIL: Patient was brought into the operating room after confirming name, date of , medical account number. She was placed in the supine position and had SCDs for DVT prophylaxis. She received appropriate perioperative antibiotics. She was then induced and intubated by the anesthesiologist. A Anthony catheter was then placed under sterile conditions. She was then prepped and draped in the usual sterile fashion. A timeout was then performed. A 1-inch supraumbilical incision was made. Bluntly I dissected down to the fascia and used cautery to get down to the fascia. I then used my finger to get to the peritoneum and a large amount of ascites was immediately expressed. I suctioned out approximately 100 to 200 mL of ascites and then placed a 12-mm balloon Zay-type trocar inside the abdomen, insufflated the abdomen to a pressure of 15 mmHg. I then placed a laparoscope inside. However, given the tremendous dilatation of the large bowel and small bowel likely from an incompetent ileocecal valve and chronic obstruction, there was no working area. It was also noted that there were some midline adhesions of the omentum to the anterior abdominal wall. Therefore, because of no working space the decision was made to convert to an open procedure. I then took out the port and used electrocautery to go through the skin down to the lower midline and then at this point I palpated the pelvis and felt the positively enlarged lymph nodes as well as a large likely pathologic ovary and I felt a large tumor in the pelvis. At this point, I then proceeded to mobilize the sigmoid colon off the retroperitoneum as well as the left colon by dissecting the white line of Toldt and then medializing it by getting the mesentery off the retroperitoneum. At this point with the sigmoid colon medialized, I then divided the sigmoid colon proximal to the tumor with a GIA60 blue-load stapler x2 and then I took some of the mesentery with LigaSure for more length. At this point, I then made the ostomy aperture by marking out the anterior-superior iliac spine on the left side and the subcostal margin on the left side and then grabbed the rectus muscle and outlined it and then made an incision approximately the size of a quarter and then bluntly dissected down to the fascia. I then cauterized the fascia in a longitudinal fashion, spread the muscle with a Debbie clamp, and then used electrocautery on to the posterior sheath on to a previously placed moist laparotomy pad. With the aperture created, the colostomy was then brought out through this aperture with no tension. However, it was very difficult to close the patient because of the marked distention. Therefore, we started milking some of the small-bowel contents towards the NG tube. It was also confirmed to be in the stomach. The colon was also markedly distended and therefore at the colostomy we cut off the corner and then placed a suction to decompress some of the air out. At this point, we then draped the omentum over the incision and then closed the fascia with No. 1 looped PDS tied to itself. At some points, even though we were grabbing the fascia it would directly tear through the fascia most likely consistent with the patient's malnourished status from the chronically obstructing lesion and therefore the decision was made to back out these sutures and then we placed 5 No. 1 Ethibond full-thickness retention sutures through the skin and fascia and then we tied down the PDS in the superior part of the aspect of the abdomen and then tied down the Ethibond which had gone through red rubber catheters. We then cut off the staple line of the colostomy and then matured it in a flush fashion. An ostomy appliance was then placed. All counts were correct. FREDY HARRIS M.D. MARIANNE/[id number]
[2016-06-10] MEDS: FAMOTIDINE 20 MG/50 ML IVPB 50 ML IVPB SCH ×2 (09:09→21:41)
[2016-06-10] MEDS: POLYETHYLENE GLYCOL 3350 119 GM BTL PO SCH ×2 (09:10→21:39)
--- NOTE | 2016-06-10 11:38 | PN ---
Progress Note (short form) - Note Progress Note: Pt tolerating clears, osotomy with stool. instructed pt on use of incentive spirometer. Vital Signs Period Temp Pulse Resp BP Sys/Mead Pulse Ox Last 24 Hr 97.5 F-98.8 F 94-108 20-20 112-160/62-81 95 PE: GEN: appears comfortable CV: RRR Lungs: CTA b/l Abd: soft, mild distention, midline inc with retention. Dressing chagned today, no purulent drainage noted. Ostomy with flatus/brown stool LE: b/l pitting edema to above the knees. non-tender CBC, BMP 06/10/16 06:20 06/10/16 06:20 A/P: POD#2 s/p end colostomy for malignant rectal mass Spoke with Dr. Harris and may advance her diet. Will progress to fulls, ostomy with BF and adv as tolerated. oob to chair/PT consult placed today local wound care, dressing changed today Incentive spirometer
--- NOTE | 2016-06-10 11:54 | PN ---
Progress Note (short form) - Note Progress Note: Post anesthesia note: Post op day#2. S/P open ostomy in GA. Started ROLLING DOWN MACHINE OPERATOR yesterday, 06/09/16. Comfortable. Ambulating from bed to chair. Tolerationg PO, VSS. Primary team requesting to D/C the ROLLING DOWN MACHINE OPERATOR.Pat signed off.
--- NOTE | 2016-06-10 12:00 | PN ---
Progress Note (short form) - Note Progress Note: Discussed with primary team and patientregarding the SHAKE OUT WORKER. patient is comfortable. Will keep SHAKE OUT WORKER another day and reassess tomorrow.06/11/16.
--- NOTE | 2016-06-10 16:16 | PN ---
Progress Note (short form) - Note Progress Note: c/o sudden onset of severe abdominal pain after drinking some juice. mid- abdomen. also states that her abdomen feels more distended. no pain previously while drinking liquids but did not drink much due to distaste of the fluids given. denies CP, SOB, palpitaitons. Current Medications Generic Name Dose Route Start Last Admin Trade Name Freq PRN Reason Stop Dose Admin Benzocaine/Menthol 1 each 06/08/16 21:10 Cepacol Lozenge - MM Q1H PRN SORE THROAT Heparin Sodium (Porcine) 5,000 unit 06/09/16 02:00 06/10/16 09:09 Heparin - SQ 5,000 unit Q8H-IV SHRUTHI Administration Hydromorphone HCl 10 mg 06/08/16 20:45 06/08/16 21:00 Dilaudid Groundsman - MACHINE FILLER SHREDDER 06/11/16 20:44 10 mg MACHINE FILLER SHREDDER SHRUTHI Administration Protocol Lactated Ringer's 1,000 mls @ 125 mls/hr 06/08/16 20:45 06/10/16 09:09 Lactated Ringers Solution IV 125 mls/hr ASDIR SHRUTHI Administration Dextrose 1,000 mls @ 75 mls/hr 06/08/16 21:10 06/09/16 07:36 D5w - IV Not Given ASDIR SHRUTHI Famotidine/Sodium Chloride 50 mls @ 100 mls/hr 06/08/16 22:00 06/10/16 09:09 Pepcid 20 Mg Premixed Ivpb - IVPB 100 mls/hr BID SHRUTHI Administration Morphine Sulfate 1 mg 06/08/16 21:10 Morphine Injection - IVPUSH Q4H PRN PAIN Ondansetron HCl 4 mg 06/08/16 21:10 Zofran Injection IVPB Q6H PRN NAUSEA Polyethylene Glycol 17 gm 06/09/16 22:00 06/10/16 09:10 Miralax (For Daily Use) - PO 17 grams BID SHRUTHI Administration Last Vital Signs Temp Pulse Resp BP Pulse Ox 97.3 F L 103 H 22 145/70 96 06/10/16 13:41 06/10/16 13:41 06/10/16 13:41 06/10/16 10:00 06/10/16 09:00 Intake & Output 06/07/16 06/08/16 06/09/1617 23:59 23:59 23:59 23:59 Intake Total 3125 5000 1670 1800 Output Total 300 750 475 500 Balance 2825 4250 1195 1300 General NAD ABdomen soft diffusely tender +LLQ colostomy with fecal material. hypoactive BS CBCD WBC 10.9 K/mm3 (4.0-10.0) H 06/10/16 06:20 RBC 3.78 M/mm3 (3.60-5.2) 06/10/16 06:20 Hgb 11.4 GM/dL (10.7-15.3) D 06/10/16 06:20 Hct 33.7 % (32.4-45.2) 06/10/16 06:20 MCV 89.0 fl (80-96) 06/10/16 06:20 MCHC 34.0 g/dl (32.0-36.0) 06/10/16 06:20 RDW 15.1 % (11.6-15.6) 06/10/16 06:20 Plt Count 311 K/MM3 (134-434) 06/10/16 06:20 MPV 8.7 fl (7.5-11.1) 06/10/16 06:20 CMP Sodium 141 mmol/L (136-145) 06/10/16 06:20 Potassium 4.0 mmol/L (3.5-5.1) 06/10/16 06:20 Chloride 104 mmol/L (98-107) 06/10/16 06:20 Carbon Dioxide 29 mmol/L (21-32) 06/10/16 06:20 Anion Gap 8 (8-16) 06/10/16 06:20 BUN 16 mg/dL (7-18) 06/10/16 06:20 Creatinine 0.7 mg/dL (0.55-1.02) D 06/10/16 06:20 Creat Clearance w eGFR > 60 (>60) 06/08/16 07:45 Calcium 8.2 mg/dL (8.5-10.1) L 06/10/16 06:20 Total Bilirubin 0.4 mg/dL (0.2-1.0) 06/10/16 06:20 AST 36 U/L (15-37) D 06/10/16 06:20 ALT 24 U/L (12-78) D 06/10/16 06:20 Alkaline Phosphatase 53 U/L (45-117) 06/10/16 06:20 Total Protein 4.5 g/dl (6.4-8.2) L D 06/10/16 06:20 Albumin 1.9 g/dl (3.4-5.0) L D 06/10/16 06:20 ASSESSMENT AND PLAN: 80yo F wtih no PMH presented to the ER and was admitted for further evaluation of their emergent condition 1. Rectal mass-s/p exlap with colostomy POD #3. concern for ovarian tumor with LN. now with sudden onset of abdominal pain. will check AXR stat. hold diet until XR can be reviewed. CT scan reviewed and unable to differentiate between mets vs hemiangioma. will need MRI to evaluate. pt reluctant for more screening. will wait at this time as developed abdominal pain. decrease IVF with developing effusions. surgery/GI/oncology on board. pepcid/pain/nausea control 2. Hypokalemia- resolved 3. asymptomatic hypernatremia- fecal impaction/sbo. improved 4. DVT ppx- hep sq 5. PT eval. will likely require SUSIE when medically optimized Visit type - Emergency Visit Emergency Visit: Yes ED Registration Date: 06/03/16 Care time: The patient presented to the Emergency Department on the above date and was hospitalized for further evaluation of their emergent condition. - New Patient This patient is new to me today: No - Critical Care Critical Care patient: No - Discharge Referral Referred to [facility] Med P.C.: No
[2016-06-10] MEDS: ONDANSETRON 4 MG/2 ML VIAL IVPB PRN (19:53)
[2016-06-11] MEDS: ONDANSETRON 4 MG/2 ML VIAL IVPB PRN ×3 (01:22→15:57)
[2016-06-11] MEDS: HEPARIN NA (PORCINE) 5,000 UNITS/ML 1ML VIAL SQ SCH ×3 (03:12→18:07)
[2016-06-11] MEDS: LACTATED RINGERS SOLUTION 1,000 ML IV SCH ×3 (06:13→20:23)
[2016-06-11] MEDS: FAMOTIDINE 20 MG/50 ML IVPB 50 ML IVPB SCH ×2 (10:12→21:22)
[2016-06-11] MEDS: POLYETHYLENE GLYCOL 3350 119 GM BTL PO SCH ×2 (10:12→21:16)
--- NOTE | 2016-06-11 10:15 | PN ---
Progress Note (short form) - Note Progress Note: POD#3 Pt with nausea. Ostomy with small amount of flatus/stool today. Oob to chair yesterday for several hours. Vital Signs Period Temp Pulse Resp BP Sys/Mead Pulse Ox Last 24 Hr 97.2 F-98.1 F 98-103 18-22 141-146/70-84 95 PE: GEN: A & 0 x3 ABD: distended, inc tenderness. mild line inc with retentions, minimal drainage noted on the dressing. Osotmy viable and with some flatus and stool. Osotmy appliance reapplied, several small skin tear/blister noted x3. Versatel dressing applied in these areas, skin prep and karya paste used to resecure the ostomy wafer. 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 Harris to address further pain managment. For now IV morphine as needed. OOB to chair/ambulate
[2016-06-11] MEDS ORDERED: HYDROmorphone HCL CARPU-JECT 1 MG/1 ML DISP.SYRIN IVPB PRN (10:20)
--- NOTE | 2016-06-11 12:45 | PN ---
Progress Note (short form) - Note Progress Note: POD #3 - s/p open ostomy creation under general anesthesia with dilaudid ACCOUNT SERVICE ASSOCIATE for post-op pain management. Pt. resting comfortably in bed. ACCOUNT SERVICE ASSOCIATE discontinued and further pain management by surgical team. Reconsult if needed.
--- NOTE | 2016-06-11 15:30 | PN ---
Progress Note (short form) - Note Progress Note: c/o nausea. has large output into colostomy bag. denies CP, SOB, palpitaitons. no vomiting Current Medications Generic Name Dose Route Start Last Admin Trade Name Freq PRN Reason Stop Dose Admin Benzocaine/Menthol 1 each 06/08/16 21:10 Cepacol Lozenge - MM Q1H PRN SORE THROAT Heparin Sodium (Porcine) 5,000 unit 06/09/16 02:00 06/11/16 10:12 Heparin - SQ 5,000 unit Q8H-IV SHRUTHI Administration Hydromorphone HCl 1 mg 06/11/16 10:20 Dilaudid Injection - IVPB Q3H PRN PAIN LEVEL 6-10 Famotidine/Sodium Chloride 50 mls @ 100 mls/hr 06/08/16 22:00 06/11/16 10:12 Pepcid 20 Mg Premixed Ivpb - IVPB 100 mls/hr BID SHRUTHI Administration Lactated Ringer's 1,000 mls @ 100 mls/hr 06/10/16 16:20 06/11/16 06:13 Lactated Ringers Solution IV 100 mls/hr ASDIR SHRUTHI Administration Morphine Sulfate 1 mg 06/08/16 21:10 Morphine Injection - IVPUSH Q4H PRN PAIN Ondansetron HCl 4 mg 06/08/16 21:10 06/11/16 09:06 Zofran Injection IVPB 4 mg Q6H PRN Administration NAUSEA Polyethylene Glycol 17 gm 06/09/16 22:00 06/11/16 10:12 Miralax (For Daily Use) - PO Not Given BID SHRUTHI Last Vital Signs Temp Pulse Resp BP Pulse Ox 98.1 F 76 20 146/83 95 06/11/16 14:00 06/11/16 14:00 06/11/16 14:00 06/10/16 21:48 06/10/16 21:00 General NAD ABdomen soft mildly tender around colostomy. +LLQ colostomy with fecal material. normoactive BS ASSESSMENT AND PLAN: 80yo F wtih no PMH presented to the ER and was admitted for further evaluation of their emergent condition 1. Rectal mass-s/p exlap with colostomy POD #4. AXR done showing ileus. NPO for now IVF. police communications dispatcher pump d/c. CEA and AFP WNL. will need MRI to further identify liver masses. will hold for today due to pt clinical condition and is not urgent at this time. pepcid/pain/nausea control 2. Hypokalemia- resolved 3. asymptomatic hypernatremia- fecal impaction/sbo. improved 4. DVT ppx- hep sq 5. PT eval. will likely require SUSIE when medically optimized Visit type - Emergency Visit Emergency Visit: Yes ED Registration Date: 06/03/16 Care time: The patient presented to the Emergency Department on the above date and was hospitalized for further evaluation of their emergent condition. - New Patient This patient is new to me today: No - Critical Care Critical Care patient: No - Discharge Referral Referred to [facility] Med P.C.: No
[2016-06-11] MEDS: morphine CARPU-JECT 2 MG/1 ML DISP.SYRIN IVPUSH PRN (20:17)
[2016-06-12] MEDS: HEPARIN NA (PORCINE) 5,000 UNITS/ML 1ML VIAL SQ SCH ×3 (01:39→17:58)
[2016-06-12] MEDS: LACTATED RINGERS SOLUTION 1,000 ML IV SCH (09:17)
[2016-06-12] MEDS: POLYETHYLENE GLYCOL 3350 119 GM BTL PO SCH ×2 (09:36→21:23)
--- NOTE | 2016-06-12 09:42 | PATH ---
Surgical Pathology Report Patient Name: MARITZA CROWDER [facility]. Rec. #: [id number] /Age/Gender: 1935 (Age: 80) / F Account: [id number] Location: [address] [place] [address]/[facility] Taken: 06/08/2016 Received: 06/09/2016 Reported: 06/12/2016 Physicians: John Harris MD Specimen(s) Received BX R/O CARCINOMATOSIS Clinical History Colitic colonic mass obstruction colon Rule out carcinomatosis Final Diagnosis ABDOMINAL CAVITY, SITE NOT SPECIFIED, BIOPSY: MODERATELY DIFFERENTIATED ADENOCARCINOMA. Comment: Also see prior specimen [id number]. Electronically Signed Brien Vivar M.D. Gross Description Received in formalin, labeled "biopsy rule out carcinomatosis," is a 0.2 cm greatest dimension rodgers soft tissue fragment which is submitted in toto in one cassette. /06/09/201606/09/2016
[2016-06-12] MEDS: FAMOTIDINE 20 MG/50 ML IVPB 50 ML IVPB SCH ×2 (09:59→21:23)
--- NOTE | 2016-06-12 10:14 | PN ---
Progress Note, Physician Chief Complaint: no nausea History of Present Illness: no nausea. more stool from ostomy. voiding alot. - Current Medication List Current Medications: Active Medications Benzocaine/Menthol (Cepacol Lozenge -) 1 each MM Q1H PRN PRN Reason: SORE THROAT Heparin Sodium (Porcine) (Heparin -) 5,000 unit SQ Q8H-IV SHRUTHI Last Admin: 06/12/16 09:59 Dose: 5,000 unit Hydromorphone HCl (Dilaudid Injection -) 1 mg IVPB Q3H PRN PRN Reason: PAIN LEVEL 6-10 Last Admin: 06/11/16 16:26 Dose: 1 mg Famotidine/Sodium Chloride (Pepcid 20 Mg Premixed Ivpb -) 50 mls @ 100 mls/hr IVPB BID [facility] Last Admin: 06/12/16 09:59 Dose: 100 mls/hr Lactated Ringer's (Lactated Ringers Solution) 1,000 mls @ 100 mls/hr IV ASDIR SHRUTHI Last Admin: 06/12/16 09:17 Dose: 100 mls/hr Morphine Sulfate (Morphine Injection -) 1 mg IVPUSH Q4H PRN PRN Reason: PAIN Last Admin: 06/11/16 20:17 Dose: 1 mg Ondansetron HCl (Zofran Injection) 4 mg IVPB Q6H PRN PRN Reason: NAUSEA Last Admin: 06/11/16 15:57 Dose: 4 mg Polyethylene Glycol (Miralax (For Daily Use) -) 17 gm PO BID [facility] Last Admin: 06/12/16 09:36 Dose: Not Given - Objective Vital Signs: Vital Signs Temperature 98.0 F 06/12/16 06:28 Pulse Rate 78 06/12/16 06:28 Respiratory Rate 20 06/12/16 06:28 Blood Pressure 121/61 06/12/16 06:28 O2 Sat by Pulse Oximetry (%) 96 06/11/16 21:00 Constitutional: Yes: No Distress, Calm Gastrointestinal: Yes: Soft, Tenderness, Other (ostomy functioning and viable). 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
--- NOTE | 2016-06-12 12:30 | PN ---
Progress Note (short form) - Note Progress Note: states nausea and pain has resolved. has large output into colostomy bag. denies CP, SOB, palpitaitons. no vomiting Current Medications Generic Name Dose Route Start Last Admin Trade Name Freq PRN Reason Stop Dose Admin Benzocaine/Menthol 1 each 06/08/16 21:10 Cepacol Lozenge - MM Q1H PRN SORE THROAT Heparin Sodium (Porcine) 5,000 unit 06/09/16 02:00 06/12/16 09:59 Heparin - SQ 5,000 unit Q8H-IV SHRUTHI Administration Famotidine/Sodium Chloride 50 mls @ 100 mls/hr 06/08/16 22:00 06/12/16 09:59 Pepcid 20 Mg Premixed Ivpb - IVPB 100 mls/hr BID SHRUTHI Administration Morphine Sulfate 1 mg 06/08/16 21:10 06/11/16 20:17 Morphine Injection - IVPUSH 1 mg Q4H PRN Administration PAIN Ondansetron HCl 4 mg 06/08/16 21:10 06/11/16 15:57 Zofran Injection IVPB 4 mg Q6H PRN Administration NAUSEA Polyethylene Glycol 17 gm 06/09/16 22:00 06/12/16 09:36 Miralax (For Daily Use) - PO Not Given BID SHRUTHI Last Vital Signs Temp Pulse Resp BP Pulse Ox 98.0 F 78 20 121/61 96 06/12/16 06:28 06/12/16 06:28 06/12/16 06:28 06/12/16 06:28 06/11/16 21:00 General NAD ABdomen soft mildly tender around colostomy. +LLQ colostomy with fecal material. normoactive BS ASSESSMENT AND PLAN: 80yo F wtih no PMH presented to the ER and was admitted for further evaluation of their emergent condition 1. Rectal mass-s/p exlap with colostomy POD #5. pathology report showing advanced adenocarcinoma. will hold on further imaging at this time as may not international exchange coordinator. spoke with oncology who will discuss options with family. palliative care consult. will advance diet as tolerated. pepcid/pain/nausea control 2. Hypokalemia- resolved 3. asymptomatic hypernatremia- fecal impaction/sbo. improved 4. DVT ppx- hep sq Visit type - Emergency Visit Emergency Visit: Yes ED Registration Date: 06/03/16 Care time: The patient presented to the Emergency Department on the above date and was hospitalized for further evaluation of their emergent condition. - New Patient This patient is new to me today: No - Critical Care Critical Care patient: No - Discharge Referral Referred to [facility] Med P.C.: No
--- NOTE | 2016-06-12 15:33 | PN ---
Progress Note (short form) - Note Progress Note: Patient seen and examined c/o leakage at ostomy site fatigue Last Vital Signs Temp Pulse Resp BP Pulse Ox 97.8 F 70 18 131/66 96 06/12/16 14:39 06/12/16 14:39 06/12/16 14:39 06/12/16 08:00 06/12/16 08:00 Cor: RSR, No murmurs, No gallops Lungs: Clear to P&A Abd: Soft, Normal bowel sounds, ostomy+, mildly distended Ext:No significant edema Labs/Meds reviewed A/P 80 y/o female presents with severe obstruction/bloating Patient noted to have obstructing rectal mass 12 cm from anal verge s/p diverting colostomy, biopsy of small bowel mesentery implant, on 06/08 large pelvic tumor. 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 clinically positive lymphadenopathy in mesentery. now with post op. ileus case disussed with family ---based on operative finding seems like advanced disease. 2 lesions in liver may need further imaging to confirm ? hemangioma vs mets. PAthology of mesenteric implant is c/w mod. diff. adenoca to consider rehab placement once cleared by primary/surgical teams. to consider palliative chemotherapy based on clinical course, wound healing, performance status---needs to f/u with us closely . Needs PET_CT outpatient to clarify the liver lesions
[2016-06-13] MEDS: HEPARIN NA (PORCINE) 5,000 UNITS/ML 1ML VIAL SQ SCH ×3 (01:47→17:24)
[2016-06-13] MEDS: FAMOTIDINE 20 MG/50 ML IVPB 50 ML IVPB SCH ×2 (10:32→22:40)
[2016-06-13] MEDS: POLYETHYLENE GLYCOL 3350 119 GM BTL PO SCH ×2 (10:34→23:00)
[2016-06-13] MEDS: ONDANSETRON 4 MG/2 ML VIAL IVPB PRN (11:12)
--- NOTE | 2016-06-13 12:31 | PN ---
Progress Note, Physician Chief Complaint: nausea History of Present Illness: abd feels tight. has some nausea. didn't feel this way yesterday. was tolerating liquids yesterday. was oob yesterday. not hungry. - Current Medication List Current Medications: Active Medications Benzocaine/Menthol (Cepacol Lozenge -) 1 each MM Q1H PRN PRN Reason: SORE THROAT Heparin Sodium (Porcine) (Heparin -) 5,000 unit SQ Q8H-IV SHRUTHI Last Admin: 06/13/16 10:32 Dose: 5,000 unit Famotidine/Sodium Chloride (Pepcid 20 Mg Premixed Ivpb -) 50 mls @ 100 mls/hr IVPB BID SHRUTHI Last Admin: 06/13/16 10:32 Dose: 100 mls/hr Morphine Sulfate (Morphine Injection -) 1 mg IVPUSH Q4H PRN PRN Reason: PAIN Last Admin: 06/11/16 20:17 Dose: 1 mg Ondansetron HCl (Zofran Injection) 4 mg IVPB Q6H PRN PRN Reason: NAUSEA Last Admin: 06/13/16 11:12 Dose: 4 mg Polyethylene Glycol (Miralax (For Daily Use) -) 17 gm PO BID SHRUTHI Last Admin: 06/13/16 10:34 Dose: Not Given - Objective Vital Signs: Vital Signs Temperature 98.1 F 06/13/16 06:22 Pulse Rate 82 06/13/16 06:22 Respiratory Rate 20 06/13/16 06:22 Blood Pressure 138/73 06/13/16 06:22 O2 Sat by Pulse Oximetry (%) 98 06/12/16 20:32 Gastrointestinal: Yes: Soft, Distention, Tenderness, Other (ostomy functional with some stool. retention sutures in place.) Wound/Incision: Yes: Sutures Intact Labs: CBC, BMP 06/10/16 06:20 06/10/16 06:20 INR, PTT INR 1.10 (0.82-1.09) 06/08/16 07:45 Problem List - Problems (1) Obstipation Code(s): K59.00 - CONSTIPATION, UNSPECIFIED (2) Obstruction, colon Code(s): K56.60 - UNSPECIFIED INTESTINAL OBSTRUCTION (3) Rectal malignant neoplasm Assessment/Plan: s/p open colostomy creation for what is now determined to be stage 4 rectal cancer nausea clears if tolerated will restart gentle IVF for her ileus labs Code(s): C20 - MALIGNANT NEOPLASM OF RECTUM
[2016-06-13] MEDS: morphine CARPU-JECT 2 MG/1 ML DISP.SYRIN IVPUSH PRN ×2 (12:36→17:28)
[2016-06-13] MEDS ORDERED: D5-1/2NS+20 MEQ KCL - 1,000 ML IV SCH (12:45)
[2016-06-13 13:59] LABS: MCHC 33.8 g/dl (32.0-36.0); MEAN CELL VOLUME 88.8 fl (80-96); MEAN PLT VOLUME 7.8 fl (7.5-11.1); PLATELET COUNT 460 K/MM3 (134-434); RDW 14.7 % (11.6-15.6); WHITE BLOOD COUNT 6.4 K/mm3 (4.0-10.0)
[2016-06-13 14:40] LABS: CALCIUM 7.3 mg/dL (8.5-10.1); CREATININE 0.4 mg/dL (0.55-1.02)
--- NOTE | 2016-06-13 15:33 | PN ---
<Malik Bowman - Last Filed: 06/13/16 15:28> Physical Exam: SUBJECTIVE: Patient seen and examined at bedside. POD #6 s/p diverting colostomy. Abd No overnight event. No new complaints. Some nausea. Abd. pain Denies CP, MONDRAGON,SOB, N/V. OBJECTIVE: Vital Signs Period Temp Pulse Resp BP Sys/Mead Pulse Ox Last 24 Hr 98.1 F-98.7 F 80-82 20-20 138-138/70-73 98 GENERAL: AAOx3 , NAD HEAD: AT/NC EYES: PERRL, EOMI, sclera anicteric, conjunctiva clear. No ptosis. ENT: Dry mucous membranes. NECK: supple , no jvd. LUNGS: fine bibasilar crackles otherwise clear. HEART:RRR, S1, S2 without murmur, rub or gallop. ABDOMEN: Soft, incisional tenderness, NBS, Colostomy patent and bag contains fecal material. no guarding, no rebound, no hepatosplenomegaly, no masses. EXTREMITIES: 2+ pulses, warm, well-perfused,1+LE edema NEUROLOGICAL: Normal speech, gait not observed. PSYCH: Normal mood, normal affect. SKIN: Wound appears C/D/I. Warm, dry, normal turgor, no rashes or lesions noted Laboratory Results - last 24 hr 06/13/16 06/13/16 13:20 13:20 WBC 6.4 D RBC 3.64 Hgb 10.9 Hct 32.3 L MCV 88.8 MCHC 33.8 RDW 14.7 Plt Count 460 H D MPV 7.8 D Sodium 135 L Potassium 2.5 L* D Chloride 92 L D Carbon Dioxide 29 Anion Gap 14 BUN 6 L D Creatinine 0.4 L D Random Glucose 71 L Calcium 7.3 L Active Medications Generic Name Dose Route Start Last Admin Trade Name Freq PRN Reason Stop Dose Admin Benzocaine/Menthol 1 each 06/08/16 21:10 Cepacol Lozenge - MM Q1H PRN SORE THROAT Heparin Sodium (Porcine) 5,000 unit 06/09/16 02:00 06/13/16 10:32 Heparin - SQ 5,000 unit Q8H-IV SHRUTHI Administration Famotidine/Sodium Chloride 50 mls @ 100 mls/hr 06/08/16 22:00 06/13/16 10:32 Pepcid 20 Mg Premixed Ivpb - IVPB 100 mls/hr BID SHRUTHI Administration Potassium Chloride/Dextrose/Sod Cl 1,000 mls @ 75 mls/hr 06/13/16 12:45 D5-1/2ns+20 Meq Kcl - IV ASDIR SHRUTHI Morphine Sulfate 1 mg 06/08/16 21:10 06/13/16 12:36 Morphine Injection - IVPUSH 1 mg Q4H PRN Administration PAIN Ondansetron HCl 4 mg 06/08/16 21:10 06/13/16 11:12 Zofran Injection IVPB 4 mg Q6H PRN Administration NAUSEA Polyethylene Glycol 17 gm 06/09/16 22:00 06/13/16 10:34 Miralax (For Daily Use) - PO Not Given BID [facility] ASSESSMENT/PLAN: 80 yo F admitted for SBO s/p diverting colostomy. Pathology shows mod.diff. adenocarcinoma. Problem List - Problems (1) Rectal malignant neoplasm Assessment/Plan: * POD # 6 s/p open colostomy creation for stage 4 rectal cancer * Diet advanced to clears * restart gentle IVF for ileus. * Seen by Dr. Shah ; discussed palliative chemo and possible PET-CT for liver lesions. * Zofran PRN nausea. * Repeat AM labs. (2) Hypokalemia Assessment/Plan: * replace with IV K+ riders x3 * repeat BMP (3) DVT prophylaxis Assessment/Plan: * Heparin SQ 5000 units BID. Visit type - Emergency Visit Emergency Visit: Yes ED Registration Date: 06/03/16 Care time: The patient presented to the Emergency Department on the above date and was hospitalized for further evaluation of their emergent condition. - New Patient This patient is new to me today: Yes Date on this admission: 06/13/16 - Critical Care Critical Care patient: No <Morin,Davidson - Last Filed: 06/13/16 16:59> Physical Exam: ATTENDING PHYSICIAN STATEMENT I saw and evaluated the patient. I reviewed the resident's note and discussed the case with the resident. I agree with the resident's findings and plan as documented. SUBJECTIVE: seen and evaluated at the bedside OBJECTIVE: good output from ostomy ASSESSMENT AND PLAN: 80 year old woman admitted for high grade bowel obstruction found to have obstructing mass -obstruction at sigmoid colon with dilation of large and small bowel from mass which was resected with ostomy placement -surgical pathology consistent with adenocarcinoma -had positive mesenteric lymph nodes and also possible mets to liver -for evaluation for palliative chemo in the future (after surgical scar heals) -follow up palliative care consult
[2016-06-13] MEDS: KCL 10 MEQ IVPB 100 ML IVPB SCH ×3 (15:58→20:39)
[2016-06-14] MEDS: morphine CARPU-JECT 2 MG/1 ML DISP.SYRIN IVPUSH PRN ×2 (01:59→06:57)
[2016-06-14] MEDS: HEPARIN NA (PORCINE) 5,000 UNITS/ML 1ML VIAL SQ SCH ×3 (01:59→17:01)
[2016-06-14 07:50] LABS: BASOPHIL 0.6 % (0-2.0); EOSINOPHIL 2.9 % (0-4.5); MCH 29.6 pg (25.7-33.7); MCHC 33.3 g/dl (32.0-36.0); MEAN CELL VOLUME 88.9 fl (80-96); MEAN PLT VOLUME 7.8 fl (7.5-11.1); NEUTROPHILS 75.4 % (42.8-82.8); PLATELET COUNT 458 K/MM3 (134-434); RDW 14.7 % (11.6-15.6); WHITE BLOOD COUNT 7.4 K/mm3 (4.0-10.0)
[2016-06-14 08:32] LABS: CALCIUM 7.3 mg/dL (8.5-10.1); CREATININE 0.5 mg/dL (0.55-1.02)
--- NOTE | 2016-06-14 09:12 | PN ---
Progress Note (short form) - Note Progress Note: POD #6 s/p lap converted to open creation of end colostomy, biopsy of small bowel mesentery implant, retention sutures. Alert. Laying in bed. Hasn't gotten out of bed yet. She has a walker assist device next to her bed. She is tolerating her liquid diet. Nausea has resolved. Denies CP, SOB, dizzy or weak. Last Vital Signs Temp Pulse Resp BP Pulse Ox 98.0 F 79 18 140/70 98 06/14/16 05:59 06/14/16 05:59 06/14/16 05:59 06/14/16 05:59 06/13/16 21:00 CBC, BMP 06/14/16 07:00 06/14/16 07:00 PE General: NAD ABD: midline incision with intermittent mae intact. LLQ ostomy viable (pink , protruding, producing) LE: SCDs in place. non-tender/swelling/pain b/l Problem List - Problems (1) Obstruction, colon Assessment/Plan: 1. Stage 4 rectal cancer 2. Advance diet to FULL LIQUIDS 3. Out of bed and ambulate with physical therapy - explained to patient the importance of doing so (risk of developing a DVT from just laying in bed is greatly increased) 4. Ostomy dressing changed on rounds 5. Ostomy Care RN for out-patient management Code(s): K56.60 - UNSPECIFIED INTESTINAL OBSTRUCTION
[2016-06-14] MEDS ORDERED: OXYCODONE/APAP 5/325MG COMBO TABLET PO PRN ×2 (10:15→10:16)
[2016-06-14] MEDS: FAMOTIDINE 20 MG/50 ML IVPB 50 ML IVPB SCH (10:56)
[2016-06-14] MEDS ORDERED: oxyCODONE HCL 5 MG TABLET PO PRN (10:57)
[2016-06-14] MEDS ORDERED: ACETAMINOPHEN 325 MG TABLET (FP) PO PRN (10:57)
[2016-06-14] MEDS: POTASSIUM CHLORIDE 40 MEQ/30 ML UNIT DOSE CUP PO SCH ×2 (11:04→21:30)
[2016-06-14] MEDS: POLYETHYLENE GLYCOL 3350 119 GM BTL PO SCH ×2 (11:06→21:29)
[2016-06-14] MEDS: oxyCODONE HCL 5 MG TABLET PO PRN ×3 (11:13→17:01)
[2016-06-14] MEDS: ACETAMINOPHEN 325 MG TABLET (FP) PO PRN ×2 (11:16→17:00)
--- NOTE | 2016-06-14 11:36 | PN ---
GI Progress Note Subjective: GI NOte: Advanced to solids but has poor appetite. Colostomy is functioning. - Objective Vital Signs: Vital Signs Temperature 98.0 F 06/14/16 05:59 Pulse Rate 79 06/14/16 05:59 Respiratory Rate 18 06/14/16 05:59 Blood Pressure 140/70 06/14/16 05:59 O2 Sat by Pulse Oximetry (%) 98 06/13/16 21:00 Constitutional: Calm ...Auscultate: Yes: Hypoactive Bowel Sounds ...Palpate: Yes: Soft, Other (colostomy functioning) Labs: CBC, BMP 06/14/16 07:00 06/14/16 07:00 INR, PTT INR 1.10 (0.82-1.09) 06/08/16 07:45 Assessment/Plan s/p diverting colostomy for obstructing rectosigmoid tumor. I will order a CT with hemangioma protocol suggests liver mets. Continue Miralax. Agree with need for PT. Problem List - Problems (1) Change in bowel habits Code(s): R19.4 - CHANGE IN BOWEL HABIT (2) Liver masses Code(s): R16.0 - HEPATOMEGALY, NOT ELSEWHERE CLASSIFIED
[2016-06-14 13:18] LABS: CALCIUM 7.9 mg/dL (8.5-10.1); CREATININE 0.5 mg/dL (0.55-1.02)
--- NOTE | 2016-06-14 13:25 | PN ---
<HazelmauryKevinJace - Last Filed: 06/14/16 13:28> Physical Exam: SUBJECTIVE: Patient seen and examined Pt is awake, alert and fully rinetdd no s.s of acute distress no nausea today, had some yesterday but it resolved Tolerating liquid diet well, want more solid food no fever or chills passing gas, brown stool in ostomy bag OBJECTIVE: Vital Signs Period Temp Pulse Resp BP Sys/Mead Pulse Ox Last 24 Hr 97.3 F-98.3 F 79-83 18-20 140-155/70-76 98 GENERAL: The patient is awake, alert, and fully oriented, in no acute distress. HEAD: Normal with no signs of trauma. NECK: Trachea midline, full range of motion, supple. LUNGS: Breath sounds equal, clear to auscultation bilaterally, no wheezes, no crackles, no accessory muscle use. HEART: Regular rate and rhythm, S1, S2 without murmur, rub or gallop. ABDOMEN: Soft, mildly tender, mildy distended, normoactive bowel sounds, no guarding, no rebound, no hepatosplenomegaly, no masses. ostomy in LLq. well approximated vertical incision with mae EXTREMITIES: 2+ pulses, warm, well-perfused, no edema. NEUROLOGICAL: Normal speech, gait not observed. PSYCH: Normal mood, normal affect. SKIN: Warm, dry, normal turgor, no rashes or lesions noted Laboratory Results - last 24 hr 06/13/16 06/13/16 06/14/16 13:20 13:20 07:00 WBC 6.4 D 7.4 RBC 3.64 3.56 L Hgb 10.9 10.5 L Hct 32.3 L 31.6 L MCV 88.8 88.9 MCHC 33.8 33.3 RDW 14.7 14.7 Plt Count 460 H D 458 H MPV 7.8 D 7.8 Neutrophils % 75.4 Lymphocytes % 10.6 Monocytes % 10.5 H D Eosinophils % 2.9 Basophils % 0.6 Sodium 135 L Potassium 2.5 L* D Chloride 92 L D Carbon Dioxide 29 Anion Gap 14 BUN 6 L D Creatinine 0.4 L D Random Glucose 71 L Calcium 7.3 L 06/14/16 07:00 WBC RBC Hgb Hct MCV MCHC RDW Plt Count MPV Neutrophils % Lymphocytes % Monocytes % Eosinophils % Basophils % Sodium 142 Potassium 3.1 L D Chloride 98 Carbon Dioxide 33 H Anion Gap 11 BUN 3 L D Creatinine 0.5 L D Random Glucose 89 D Calcium 7.3 L Active Medications Generic Name Dose Route Start Last Admin Trade Name Freq PRN Reason Stop Dose Admin Acetaminophen 325 mg 06/14/16 10:55 06/14/16 11:16 Tylenol - PO 06/17/16 10:54 325 mg Q4H PRN Administration PAIN Acetaminophen 650 mg 06/14/16 10:57 Tylenol - PO 06/17/16 10:56 Q4H PRN PAIN Benzocaine/Menthol 1 each 06/08/16 21:10 Cepacol Lozenge - MM Q1H PRN SORE THROAT Heparin Sodium (Porcine) 5,000 unit 06/09/16 02:00 06/14/16 11:05 Heparin - SQ 5,000 unit Q8H-IV SHRUTHI Administration Morphine Sulfate 1 mg 06/08/16 21:10 06/14/16 06:57 Morphine Injection - IVPUSH 1 mg Q4H PRN Administration PAIN Ondansetron HCl 4 mg 06/08/16 21:10 06/13/16 11:12 Zofran Injection IVPB 4 mg Q6H PRN Administration NAUSEA Oxycodone HCl 5 mg 06/14/16 10:55 06/14/16 11:17 Roxicodone - PO 5 mg Q4H PRN Administration PAIN Oxycodone HCl 10 mg 06/14/16 10:57 Roxicodone - PO Q4H PRN PAIN Pantoprazole Sodium 40 mg 06/15/16 10:00 Protonix - PO DAILY SHRUTHI Polyethylene Glycol 17 gm 06/09/16 22:00 06/14/16 11:06 Miralax (For Daily Use) - PO 17 grams BID SHRUTHI Administration Potassium Chloride 40 meq 06/14/16 10:00 06/14/16 11:04 Kcl Oral Solution - PO 06/14/16 22:01 40 meq BID SHRUTHI Administration ASSESSMENT/PLAN: 80 year old female with recently found obstructing rectal mass s/p Exlap with colostomy post op day 7 Exlap with colostomy post op day 7 Tolerating liquid well advanced to solid by surgery Passing gas, no n/v, passing stool from ostomy OOB to chair incentive spirometer PT 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 , moderate differentiated with mucinous feature Hem/onc on case likely stage 4 further outpatient staging to be done Considering palliative care, chemotherapy Post Op ileus (Resolving) Passing stool, gas normoactive bowel sounds Increase fluid intake to at least 8 glasses per day Miralax Po GI on case Gen surg on case Hypokalemia K 3.1 KCL 40mg po BID x2 Add on magnesium level reap in am FEN Fluid: none Electrolytes: repleted, repeat in am Nutrition: Regular diet DVT: heparin 5000U q8h sq Disposition: Discharge planning in next couple of days Visit type - Emergency Visit Emergency Visit: Yes ED Registration Date: 06/03/16 Care time: The patient presented to the Emergency Department on the above date and was hospitalized for further evaluation of their emergent condition. - New Patient This patient is new to me today: No - Critical Care Critical Care patient: No - Discharge Referral Referred to [facility] No <Davidson Morin - Last Filed: 06/14/16 15:05> Physical Exam: ATTENDING PHYSICIAN STATEMENT I saw and evaluated the patient. I reviewed the resident's note and discussed the case with the resident. I agree with the resident's findings and plan as documented. SUBJECTIVE: seen and evaluated at the bedside OBJECTIVE: good output from ostomy ASSESSMENT AND PLAN: 80 year old woman admitted for high grade bowel obstruction found to have obstructing mass -obstruction at sigmoid colon with dilation of large and small bowel from mass which was resected with ostomy placement -surgical pathology consistent with adenocarcinoma -had positive mesenteric lymph nodes and also possible mets to liver -for evaluation for palliative chemo in the future (after surgical scar heals) -follow up palliative care consult -will need subacute rehab placement due to deconditioning
[2016-06-14 13:42] LABS: MAGNESIUM 1.8 mg/dL (1.8-2.4)
[2016-06-15] MEDS: HEPARIN NA (PORCINE) 5,000 UNITS/ML 1ML VIAL SQ SCH ×3 (02:16→18:43)
[2016-06-15] MEDS: oxyCODONE HCL 5 MG TABLET PO PRN ×4 (02:55→20:46)
[2016-06-15] MEDS: ACETAMINOPHEN 325 MG TABLET (FP) PO PRN ×3 (02:56→14:56)
[2016-06-15] MEDS: PANTOPRAZOLE 40 MG TABLET (FP) PO SCH (09:08)
--- NOTE | 2016-06-15 09:29 | PN ---
<Davidson Morin - Last Filed: 06/15/16 13:59> Physical Exam: ATTENDING PHYSICIAN STATEMENT I saw and evaluated the patient. I reviewed the resident's note and discussed the case with the resident. I agree with the resident's findings and plan as documented. SUBJECTIVE: seen and evaluated at the bedside OBJECTIVE: good output from ostomy ASSESSMENT AND PLAN: 80 year old woman admitted for high grade bowel obstruction found to have obstructing mass -obstruction at sigmoid colon with dilation of large and small bowel from mass which was resected with ostomy placement -surgical pathology consistent with adenocarcinoma -had positive mesenteric lymph nodes and also possible mets to liver -for evaluation for palliative chemo in the future (after surgical scar heals) -follow up palliative care consult -will need subacute rehab placement due to deconditioning <Jace Vievros - Last Filed: 06/15/16 17:24> Physical Exam: SUBJECTIVE: Patient seen and examined Pt is still feeling down, discouraged and overwhelmed generalized weakness Ambulate with physical therapy Complains of pain and nausea which is resolved no fever or chills had questions and concerns about discharge. All questions were answered by medical team. case management discusses placement with patient and OBJECTIVE: Vital Signs Period Temp Pulse Resp BP Sys/Mead Pulse Ox Last 24 Hr 97.5 F-97.9 F 77-90 20-20 101-140/65-76 98 GENERAL: The patient is awake, alert, and fully oriented, in no acute distress. HEAD: Normal with no signs of trauma. NECK: Trachea midline, full range of motion, supple. LUNGS: Breath sounds equal, diminished to auscultation bilaterally, no wheezes, no crackles, no accessory muscle use. HEART: Regular rate and rhythm, S1, S2 without murmur, rub or gallop. ABDOMEN: Soft, mildly tender, mildy distended, normoactive bowel sounds, no guarding, no rebound, no hepatosplenomegaly, no masses. ostomy in LLQ with dark brown stool. Well approximated vertical incision with mae EXTREMITIES: 2+ pulses, warm, well-perfused, no edema. NEUROLOGICAL: Normal speech, gait not observed. PSYCH: Normal mood, normal affect. SKIN: Warm, dry, normal turgor, no rashes or lesions noted Laboratory Results - last 24 hr 06/13/16 06/14/16 07:40 12:45 Sodium 140 Potassium 4.0 D Chloride 100 Carbon Dioxide 30 Anion Gap 10 BUN 5 L D Creatinine 0.5 L Random Glucose 129 H D Calcium 7.9 L Magnesium 1.8 CA 125 Antigen 100.0 H Active Medications Generic Name Dose Route Start Last Admin Trade Name Freq PRN Reason Stop Dose Admin Acetaminophen 325 mg 06/14/16 10:55 06/15/16 07:05 Tylenol - PO 06/17/16 10:54 325 mg Q4H PRN Administration PAIN Acetaminophen 650 mg 06/14/16 10:57 Tylenol - PO 06/17/16 10:56 Q4H PRN PAIN Benzocaine/Menthol 1 each 06/08/16 21:10 Cepacol Lozenge - MM Q1H PRN SORE THROAT Heparin Sodium (Porcine) 5,000 unit 06/09/16 02:00 06/15/16 09:08 Heparin - SQ 5,000 unit Q8H-IV SHRUTHI Administration Ondansetron HCl 4 mg 06/08/16 21:10 06/13/16 11:12 Zofran Injection IVPB 4 mg Q6H PRN Administration NAUSEA Oxycodone HCl 5 mg 06/14/16 10:55 06/15/16 07:05 Roxicodone - PO 5 mg Q4H PRN Administration PAIN Oxycodone HCl 10 mg 06/14/16 10:57 Roxicodone - PO Q4H PRN PAIN Pantoprazole Sodium 40 mg 06/15/16 10:00 06/15/16 09:08 Protonix - PO 40 mg DAILY SHRUTHI Administration Polyethylene Glycol 17 gm 06/09/16 22:00 06/14/16 21:29 Miralax (For Daily Use) - PO 17 grams BID SHRUTHI Administration CBC, BMP 06/14/16 07:00 06/14/16 12:45 ASSESSMENT/PLAN: 80 year old female with recently found obstructing rectal mass s/p Exlap with colostomy post op day 8 Exlap with colostomy post op day 8. Pt had laparoscopic converted to open creation of end colostomy, biopsy of small bowel mesentery implant, placement of retention sutures on 06/08/16. Now Tolerating solid diet, Passing gas, some nausea but resolved with zofran, passing stool from ostomy. Occasional mild to moderate abdominal pain which is controlled percocet. Continue pain management with roxicodone q4h prn Continue antiemetic and anti-nausea management with zofran 4mg prn q6h Pt is OOB to chair, Incentive spirometer q2h while awake Ambulation with nursing staff and physical therapy Will need outpatient physical therapy in rehab. Outpatient follow up with Dr Harris, gen surgery. Rectal neoplasm. 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 Hem/onc, Dr Shah is on the case. Pt likely has metastatic cancer, likely stage 4 but further outpatient staging to need be done. F/u with Dr Shah outpatient Palliative care Post Op ileus (Resolved) Passing stool, gas normoactive bowel sounds Increase fluid intake to at least 8 glasses per day Miralax Po GI on case Gen surg on case Hypokalemia (resolved) K 4 FEN Fluid: none Electrolytes: no abnormalities Nutrition: Regular diet DVT: heparin 5000U q8h sq Disposition: Discharge planning in next couple of days Visit type - Emergency Visit Emergency Visit: Yes ED Registration Date: 06/03/16 Care time: The patient presented to the Emergency Department on the above date and was hospitalized for further evaluation of their emergent condition. - New Patient This patient is new to me today: No - Critical Care Critical Care patient: No - Discharge Referral Referred to [facility] No
[2016-06-15] MEDS: POLYETHYLENE GLYCOL 3350 119 GM BTL PO SCH ×2 (10:00→21:03)
--- NOTE | 2016-06-15 12:25 | DS ---
Physical Exam: SUBJECTIVE: Patient seen and examined Pt is awake, alert and oriented, feeling better this morning ready to go home asking about breakfast C/o of mild lower ext swelling C/o of increased urination Ambulate using walker denies pain and nausea NO fever or chills OBJECTIVE: Vital Signs Period Temp Pulse Resp BP Sys/Mead Pulse Ox Last 24 Hr 97.5 F-97.9 F 77-83 20-20 101-133/65-85 98-98 PHYSICAL EXAM GENERAL: The patient is awake, alert, and fully oriented, in no acute distress. HEAD: Normal with no signs of trauma. NECK: Trachea midline, full range of motion, supple. LUNGS: Breath sounds equal, diminished to auscultation bilaterally, no wheezes, no crackles, no accessory muscle use. HEART: Regular rate and rhythm, S1, S2 without murmur, rub or gallop. ABDOMEN: Soft, mildly tender, mildy distended, normoactive bowel sounds, no guarding, no rebound, no hepatosplenomegaly, no masses. ostomy in LLQ with soft brown stool. Well approximated vertical incision with sutures with serosanguinous minimal drainage. NEUROLOGICAL: Normal speech, gait not observed. PSYCH: Normal mood, normal affect. SKIN: Warm, dry, normal turgor, no rashes or lesions noted LABS Laboratory Results - last 24 hr 06/13/16 06/14/16 07:40 12:45 Sodium 140 Potassium 4.0 D Chloride 100 Carbon Dioxide 30 Anion Gap 10 BUN 5 L D Creatinine 0.5 L Random Glucose 129 H D Calcium 7.9 L Magnesium 1.8 CA 125 Antigen 100.0 H Home Medications Medication Instructions Recorded Pantoprazole Sodium [Protonix -] 40 mg PO DAILY #30 06/15/16 Polyethylene Glycol 3350 [Miralax 17 gm PO BID #1 bottle 06/15/16 119 gm Btl -] Acetaminophen [Tylenol .Regular 650 mg PO Q4H PRN #0 tablet 06/16/16 Strength -] Docusate Sodium [Colace -] 100 mg PO DAILY #30 capsule 06/16/16 Ondansetron HCl [Zofran] 4 mg PO Q6H #60 tablet 06/16/16 Oxycodone HCl [Roxicodone -] 5 mg PO Q4H PRN #20 tablet MDD 4 06/16/16 HOSPITAL COURSE: Date of Admission:06/03/16 80 year old female with complaint of constipation and lower abdominal pain for 2 weeks. Patient notes that she initially developed abdominal pain and then noticed change in bowel movement and stool that became harder and smaller. She denies passing gas or burping over the past few days. She reports taking multiple laxatives without any relief. She reports a small bowel movement this morning. She also reports decreased appetite. She also notes that last month every time she ate nuts was experiencing abdominal pain. Denies any SOB, cp, fever, nausea, vomiting or diarrhea. Denies any recent weight changes. Denies any recent travel. Denies recent abx use. ER course was notable for: (1) Abdominal XRAY/CT 80 year old female with recently found obstructing rectal mass s/p Exlap with colostomy post op day 9 Exlap with colostomy post op day 9. Pt had laparoscopic converted to open creation of end colostomy, biopsy of small bowel mesentery implant, placement of retention sutures on 06/08/16. Now Tolerating solid diet, Passing gas, No nausea, passing brown soft pasty stool from ostomy. Occasional mild to moderate abdominal pain which is controlled percocet. Pt is OOB to chair, using incentive spirometer, walking with physical therapy. Pt is to continue further physical therapy in rehab. Pt is follow up with Dr Harris, gen surgery. Rectal neoplasm. 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 Hem/onc, Dr Shah is on the case. Pt likely has metastatic cancer, likely stage 4 but further outpatient staging to need be done. Date of Discharge: 06/16/16 Minutes to complete discharge: 35 Discharge Summary Reason For Visit: COLITIS COLONIC MASS OBSTRUCTION COLON Current Active Problems Change in bowel habits (Acute) Colitis (Acute) Colonic mass (Acute) DVT prophylaxis (Acute) Hypokalemia (Acute) Liver masses (Acute) Obstipation (Acute) Obstruction, colon (Acute) Rectal malignant neoplasm (Acute) Condition: Stable - Instructions Diet, Activity, Other Instructions: Discharge to SNF Resume home diet Activity as tolerated Follow up with Dr Harris, within a week, call for appointment Follow with Dr Shah/Lucas, tile conduit layer oncologist, within 1-2 weeks Follow up with Dr Braun within 1-2 weeks Referrals: John Harris MD [Staff Physician] - José Miguel Braun MD [Staff Physician] - Alyssa Thompson MD [Staff Physician] - Disposition: SNF FACILITY - Home Medications Comprehensive Discharge Medication List: Ambulatory Orders NK [No Known Home Medication] 06/03/16 This patient is new to me today: No Emergency Visit: Yes ED Registration Date: 06/03/16 Care time: The patient presented to the Emergency Department on the above date and was hospitalized for further evaluation of their emergent condition. Critical Care patient: No - Discharge Referral Referred to [facility] No
[2016-06-15 18:49] VITALS: PULSE 77
--- NOTE | 2016-06-15 21:42 | PN ---
Progress Note (short form) - Note Progress Note: Patient seen and examined c/o leakage at ostomy site fatigue Last Vital Signs Temp Pulse Resp BP Pulse Ox 97.8 F 70 18 131/66 96 06/12/16 14:39 06/12/16 14:39 06/12/16 14:39 06/12/16 08:00 06/12/16 08:00 Cor: RSR, No murmurs, No gallops Lungs: Clear to P&A Abd: Soft, Normal bowel sounds, ostomy+, mildly distended Ext:No significant edema Labs/Meds reviewed A/P 80 y/o female presents with severe obstruction/bloating Patient noted to have obstructing rectal mass 12 cm from anal verge s/p diverting colostomy, biopsy of small bowel mesentery implant, on 06/08 large pelvic tumor. 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 clinically positive lymphadenopathy in mesentery. post op. ileus improved case disussed with family ---based on operative finding seems like advanced disease. 2 lesions in liver may need further imaging to confirm ? hemangioma vs mets. PAthology of mesenteric implant is c/w mod. diff. adenoca to consider rehab placement once cleared by primary/surgical teams. to consider palliative chemotherapy based on clinical course, wound healing, performance status---needs to f/u with us closely . Needs PET_CT outpatient to clarify the liver lesions. contact nos.given
[2016-06-16] MEDS: HEPARIN NA (PORCINE) 5,000 UNITS/ML 1ML VIAL SQ SCH (01:26)
[2016-06-16 06:16] VITALS: BP 147/80; TEMP 97.8
[2016-06-16] MEDS: ACETAMINOPHEN 325 MG TABLET (FP) PO PRN (08:55)
[2016-06-16] MEDS: oxyCODONE HCL 5 MG TABLET PO PRN (08:55)
[2016-06-16] MEDS: PANTOPRAZOLE 40 MG TABLET (FP) PO SCH (10:29)
[2016-06-16] MEDS: POLYETHYLENE GLYCOL 3350 119 GM BTL PO SCH (10:29)
== END 2016-06-16 11:15 | DRG 330 ==
LOC: JER 13:06 → JERBED 20:21 → J6S 22:19
PROVIDERS: ADMIT Internal Medicine; ATTEND Internal Medicine
PROC: 0DNS0ZZ (ICD-10-PCS; 2016-06-08)
PROC: 0DBP8ZX Excision of Rectum, Via Natural or Artificial Opening Endoscopic, Diagnostic (ICD-10-PCS; 2016-06-08)
PROC: 0D1N0Z4 Bypass Sigmoid Colon to Cutaneous, Open Approach (ICD-10-PCS; principal; 2016-06-08 12:00)
DX: C20 Malignant neoplasm of rectum (principal); R18.8 Other ascites; K56.69 Other intestinal obstruction; E87.0 Hyperosmolality and hypernatremia; K91.3 Postprocedural intestinal obstruction; Z53.31 Laparoscopic surgical procedure converted to open procedure; K66.0 Peritoneal adhesions (postprocedural) (postinfection); K59.09 Other constipation; M51.27 Other intervertebral disc displacement, lumbosacral region; R00.0 Tachycardia, unspecified; D72.829 Elevated white blood cell count, unspecified; E87.6 Hypokalemia; R16.0 Hepatomegaly, not elsewhere classified; Y83.2 Surgical operation with anastomosis, bypass or graft as the cause of abnormal reaction of the patient, or of later complication, without mention of misadventure at the time of the procedure; R59.0 Localized enlarged lymph nodes; K76.9 Liver disease, unspecified
CPT/HCPCS: 36415; 71020-TC; 74000-TC; 74020-TC; 74170-TC; 74177-TC; 76705-TC; 80048; 80053; 80076; 82105; 82378; 82977; 83605; 83735; 84100; 85025; 85027; 85610; 85730; 86140; 86304; 86850; 86870; 86900; 86901; 86902; 88305-TC; 93005; 93010; 94760; 97116-GP; 99284-25; J1644; Q9967

== ENCOUNTER 2016-06-19 19:31 | Inpatient (IN) | payer OTHER, BC ==
--- NOTE | 2016-06-19 19:54 | PDOC ---
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 The patient states her abdominal pain is constant and worse when she extends her left lower extremity. She states her pain is slightly alleviated when shes lying flat with her left leg bent. As per the patient's family, the patient started her antibiotics yesterday and was ambulating with no complaints of pain. She denies chest pain, shortness of breath, headache and dizziness. She denies nausea, vomit, diarrhea and constipation. She denies dysuria, frequency, urgency and hematuria. Allergies: sulindac Past surgical history: colostomy PCP - Dr. Lyons Surgeon - Dr. John Harris <Bere Rogers - Last Filed: 06/20/16 00:03> <Davida Rouse - Last Filed: 06/20/16 22:55> - General Chief Complaint: Pain Stated Complaint: ABDOMINAL PAIN AND FEVER Past History <Bere Rogers - Last Filed: 06/20/16 00:03> - Psycho/Social/Smoking Cessation Hx Suicidal Ideation: No Smoking History: Never smoked Have you smoked in the past 12 months: No Information on smoking cessation initiated: No Hx Alcohol Use: No Drug/Substance Use Hx: No Substance Use Type: None <Davida Rouse - Last Filed: 06/20/16 22:55> - Past Medical History Allergies/Adverse Reactions: Allergies Allergy/AdvReac Type Severity Reaction Status Date / Time sulindac [From Clinoril] Allergy Unknown Rash Verified 06/19/16 19:39 CLINERAL Allergy Intermediate Hives Uncoded 06/19/16 19:39 Home Medications: Ambulatory Orders Acetaminophen [Tylenol] 650 mg PO Q4H PRN 06/20/16 Acetaminophen with Codeine [Tylenol with Codeine #3 Tablet] 1 each PO DAILY PRN 06/20/16 Collagenase Clostridium Hist. [Santyl] 1 applic TP DAILY 06/20/16 Docusate Sodium [Colace -] 200 mg PO HS 06/20/16 Oxycodone HCl [Oxycodone HCl ER] 10 mg PO BID PRN 06/20/16 Oxycodone HCl [Roxicodone -] 5 mg PO Q6H PRN 06/20/16 Pantoprazole Sodium [Protonix] 40 mg PO DAILY 06/20/16 Polyethylene Glycol 3350 [Miralax (For Daily Use) -] 17 gm PO BID PRN 06/20/16 Sulfamethoxazole/Trimethoprim [Bactrim Ds Tablet] 1 each PO BID 06/20/16 Review of Systems - Review of Systems Able to Perform ROS?: Yes Comments:: 06/19/16 23:15 CONSTITUTIONAL: (+) fever, chills,Absent: diaphoresis, generalized weakness, malaise, loss of appetite HEENT: Absent: rhinorrhea, nasal congestion, throat pain, throat swelling, difficulty swallowing, mouth swelling, ear pain, eye pain, visual Changes CARDIOVASCULAR: Absent: chest pain, syncope, palpitations, irregular heart rate, lightheadedness , peripheral edema RESPIRATORY: Absent: cough, shortness of breath, dyspnea with exertion, orthopnea, wheezing, stridor, hemoptysis GASTROINTESTINAL: (+) abdominal pain, abdominal distension, Absent: nausea, vomiting, diarrhea, constipation, melena, hematochezia GENITOURINARY: Absent: dysuria, frequency, urgency, hesitancy, hematuria, flank pain, genital pain MUSCULOSKELETAL: Absent: myalgia, arthralgia, joint swelling SKIN: Absent: rash, itching, pallor HEMATOLOGIC/IMMUNOLOGIC: Absent: easy bleeding, easy bruising, lymphadenopathy, frequent infections ENDOCRINE: Absent: unexplained weight gain, unexplained weight loss, heat intolerance, cold intolerance NEUROLOGIC: Absent: headache, focal weakness or paresthesias, dizziness, unsteady gait, seizure, mental status changes, bladder or bowel incontinence PSYCHIATRIC: Absent: anxiety, depression, suicidal or homicidal ideation, hallucinations. <Bere Rogers - Last Filed: 06/20/16 00:03> *Physical Exam - Vital Signs Last Vital Signs Temp Pulse Resp BP Pulse Ox 102.0 F H 110 H 18 141/74 06/19/16 19:39 06/19/16 19:39 06/19/16 19:39 06/19/16 19:39 - Physical Exam Comments: 06/19/16 23:15 GENERAL: Well developed, well nourished. Awake and alert. No acute distress. HEENT: Normocephalic, atraumatic. PERRLA, EOMI. No conjunctival pallor. Sclera are non- icteric. Moist mucous membranes. Oropharynx is clear. NECK: Supple. Full ROM. No JVD. Carotid pulses 2+ and symmetric, without bruits. No thyromegaly. No lymphadenopathy. CARDIOVASCULAR: Regular rate and rhythm. No murmurs, rubs, or gallops. Distal pulses are 2+ and symmetric. PULMONARY: No evidence of respiratory distress. Lungs clear to auscultation bilaterally. No wheezing, rales or rhonchi. ABDOMINAL: (+) diffusely tender and distended, colostomy in place. No rebound or guarding. No organomegaly. Normoactive bowel sounds. MUSCULOSKELETAL Normal range of motion at all joints. No bony deformities or tenderness. No CVA tenderness. EXTREMITIES: No cyanosis. No clubbing. No edema. No calf tenderness. SKIN: Warm and dry. Normal capillary refill. No rashes. No jaundice. NEUROLOGICAL: Alert, awake, appropriate. Cranial nerves 2-12 intact. Normoreflexic in the upper and lower extremities. Normal speech. Toes are down-going bilaterally. PSYCHIATRIC: Cooperative. Good eye contact. Appropriate mood and affect. <Bere Rogers - Last Filed: 06/20/16 00:03> - Vital Signs Last Vital Signs Temp Pulse Resp BP Pulse Ox 102.0 F H 110 H 18 141/74 06/19/16 19:39 06/19/16 19:39 06/19/16 19:39 06/19/16 19:39 <Davida Rouse - Last Filed: 06/20/16 22:55> ED Treatment Course - LABORATORY CBC & Chemistry Diagram: 06/19/16 21:00 06/19/16 21:00 - ADDITIONAL ORDERS Additional order review: Laboratory Results 06/19/16 06/19/16 06/19/16 21:30 21:00 21:00 INR PTT (Actin FS) Sodium Potassium Chloride Carbon Dioxide Anion Gap BUN Creatinine Creat Clearance w eGFR Random Glucose Lactic Acid 1.177 Calcium Total Bilirubin AST ALT Alkaline Phosphatase Creatine Kinase 54 Troponin I < 0.02 Total Protein Albumin Lipase Blood Type O NEGATIVE Antibody Screen Positive H 06/19/16 06/19/16 21:00 21:00 INR 1.15 H PTT (Actin FS) 28.4 Sodium 140 Potassium 4.2 Chloride 105 Carbon Dioxide 24 Anion Gap 11 BUN 14 D Creatinine 0.9 D Creat Clearance w eGFR > 60 Random Glucose 96 D Lactic Acid Calcium 8.2 L Total Bilirubin 0.6 D AST 21 D ALT 27 Alkaline Phosphatase 108 D Creatine Kinase Troponin I Total Protein 6.2 L D Albumin 2.3 L D Lipase 91 Blood Type Antibody Screen 06/19/16 21:00 RBC 4.19 MCV 88.5 MCHC 33.6 RDW 15.3 MPV 7.6 Neutrophils % 94.9 H D Lymphocytes % 3.1 L D Monocytes % 1.5 L D Eosinophils % 0.0 D Basophils % 0.5 - RADIOLOGY Radiograph Interpretation: 06/20/16 00:[address] was read by Dr. Hui at 23:48 Impression: suggestive for abscess formation. see report for details. - Medications Given in the ED: ED Medications Discontinued Medications Generic Name Dose Route Start Last Admin Trade Name Freq PRN Reason Stop Dose Admin Acetaminophen 1,000 mg 06/19/16 20:43 06/19/16 21:33 Ofirmev Injection - IVPB 06/19/16 20:44 1,000 mg ONCE ONE Administration Sodium Chloride 1,000 mls @ 1,000 mls/hr 06/19/16 20:32 06/19/16 21:33 Normal Saline - IV 06/19/16 21:31 1,000 mls/hr ASDIR STA Administration Morphine Sulfate 2 mg 06/19/16 20:38 06/19/16 21:33 Morphine Injection - IVPUSH 06/19/16 20:39 2 mg ONCE ONE Administration <Bere Rogers - Last Filed: 06/20/16 00:03> - LABORATORY CBC & Chemistry Diagram: 06/19/16 21:00 06/19/16 21:00 <Davida Rouse - Last Filed: 06/20/16 22:55> Medical Decision Making - Medical Decision Making 06/20/16 00:05 Dr. Lyons was called at this time and the patient's case was discussed. He accepts patient's admission. <Bere Rogers - Last Filed: 06/20/16 00:03> - Medical Decision Making 06/19/16 22:32 pt BIBA from [facility] for severe abd pain and fever -abd exam: diffusely tender abd exam, no stool in colostomy bag,fever, tachycardia.pt is axox3 -IV access,IVF,antibiotics -consulted w surgeon 06/20/16 22:38 -ct scan suggestive of abscess -pt admitted med/surg <Davida Rouse - Last Filed: 06/20/16 22:55> *DC/Admit/Observation/Transfer - Attestations Scribe Attestion: 06/19/16 23:16 Documentation prepared by Bere Rogers, acting as medical malpractice paralegal for Davida Rouse MD <Bere Rogers - Last Filed: 06/20/16 00:03> - Discharge Dispostion Admit: Yes <Davida Rouse - Last Filed: 06/20/16 22:55> Diagnosis at time of Disposition: Abscess Fever Qualifiers: Fever type: unspecified Qualified Code(s): R50.9 - Fever, unspecified Abdominal pain Qualifiers: Abdominal location: generalized Qualified Code(s): R10.84 - Generalized abdominal pain - Referrals
[2016-06-19] MEDS ORDERED: SODIUM CHLORIDE 1,000 ML IV STA (20:32)
[2016-06-19] MEDS ORDERED: morphine CARPU-JECT 2 MG/1 ML DISP.SYRIN IVPUSH ONE ×2 (20:38→23:59)
[2016-06-19] MEDS ORDERED: ACETAMINOPHEN 1000 MG/100 ML VIAL (NON FORMULARY) IVPB ONE (20:43)
[2016-06-19] MEDS ORDERED: morphine CARPU-JECT 2 MG/1 ML DISP.SYRIN ONE ×2 (21:09→23:55)
[2016-06-19] MEDS ORDERED: ACETAMINOPHEN INJECTION 100 ML IVPB ONE (21:10)
[2016-06-19 21:38] LABS: BASOPHIL 0.5 % (0-2.0); MCH 29.8 pg (25.7-33.7); MCHC 33.6 g/dl (32.0-36.0); MEAN CELL VOLUME 88.5 fl (80-96); MEAN PLT VOLUME 7.6 fl (7.5-11.1); NEUTROPHILS 94.9 % (42.8-82.8); PLATELET COUNT 652 K/MM3 (134-434); RDW 15.3 % (11.6-15.6)
[2016-06-19 21:55] LABS: INR 1.15 (0.82-1.09); PROTHROMBIN TIME (PATIENT) 12.7 SEC (9.98-11.88)
[2016-06-19 21:57] LABS: ACTIVATED PTT 28.4 SECONDS (26.9-34.4)
[2016-06-19 22:04] LABS: ALBUMIN 2.3 g/dl (3.4-5.0); ALK PHOS 108 U/L (45-117); ANION GAP 11 (8-16); BILIRUBIN,TOTAL 0.6 mg/dL (0.2-1.0); CALCIUM 8.2 mg/dL (8.5-10.1); CO2 24 mmol/L (21-32); CREATININE 0.9 mg/dL (0.55-1.02); GLUCOSE,RANDOM 96 mg/dL (74-106); SGOT/AST 21 U/L (15-37); SGPT/ALT 27 U/L (12-78); TOT PROT 6.2 g/dl (6.4-8.2)
[2016-06-19 22:07] LABS: TROPONIN I < 0.02 ng/ml (0.00-0.05)
[2016-06-19] MEDS ORDERED: VANCOMYCIN 1,000 MG in DEXTROSE 5%-WATER - 250 ML IVPB ONE (22:28)
[2016-06-19] MEDS ORDERED: PIPERACILLIN/TAZOB 3.375 GM 3.375 GM in DEXTROSE 5%-WATER - 50 ML IVPB ONE (22:29)
[2016-06-19] MEDS ORDERED: VANCOMYCIN 1 GRAM (PRE-DOCKED) 250 ML IVPB ONE (23:40)
[2016-06-19] MEDS ORDERED: PIPERACILLIN/TAZOB 3.375 GM 50 ML IVPB ONE (23:40)
[2016-06-20 01:31] LABS: VENOUS PH 7.45 (7.32-7.42)
[2016-06-20 01:32] LABS: VENOUS BLOOD GAS HCO3 23.8 meq/L (19-25)
[2016-06-20 04:28] LABS: PH,URINE 6.5 (5.0-8.0); URINE APPEARANCE CLEAR; URINE BILIRUBIN NEGATIVE (NEGATIVE); URINE GLUCOSE (UA) NEGATIVE (NEGATIVE); URINE KETONE NEGATIVE (NEGATIVE); URINE LEUK ESTERASE NEGATIVE (NEGATIVE); URINE NITRITE NEGATIVE (NEGATIVE); URINE PROTEIN TRACE (NEGATIVE); URINE UROBILINOGEN 0.2 E.U/dl E.U./dl (0.2-1.0)
[2016-06-20 04:31] LABS: URINE BLOOD 1+ (NEGATIVE); URINE COLOR YELLOW
[2016-06-20 04:36] LABS: URINE BACTERIA RARE /hpf (NONE SEEN); URINE MUCUS RARE; URINE RBC 12 /hpf (0-3); URINE WBC 3 /hpf (3-5)
[2016-06-20] MEDS ORDERED: morphine CARPU-JECT 2 MG/1 ML DISP.SYRIN IVPUSH ONE (04:58)
[2016-06-20] MEDS ORDERED: morphine CARPU-JECT 2 MG/1 ML DISP.SYRIN ONE ×2 (05:01→12:01)
[2016-06-20] MEDS ORDERED: ONDANSETRON 4 MG/2 ML VIAL IVPB PRN (07:01)
[2016-06-20] MEDS ORDERED: PIPERACILLIN/TAZOB 3.375 GM/50 ML PRE-DOCKED IVPB ONE (07:15)
[2016-06-20] MEDS: DEXTROSE 5%-NORMAL SALINE 1,000 ML IV SCH ×2 (08:20→13:39)
--- NOTE | 2016-06-20 09:52 | CONSULT ---
Consult Consult Specialty:: colorectal surgery Reason for Consultation:: abd pain fever - History of Present Illness Chief Complaint: abd pain/fever History of Present Illness: pt is a 80F s/p open creation of colostomy on 06/08 (she is approx 12 days postop) . she was at [facility] where she was complaining of worsening RLQ abd pain and wound drainage. she was started on oral abx there and because of worsening pain was instructed by me to come to ER for evaluation. in ER she had fever to 102 and leukocytosis to [address] showing multiple intraabd fluid collections concerning for possible abscess. of not she is stage 4 rectal cancer (newly dx ) because of intra-abd implant - History Source History Provided By: Patient, Family Member Limitations to Obtaining History: No Limitations - Past Medical History Gastrointestinal: Yes: Cancer Musculoskeletal: Yes: Chronic low back pain Additional Medical History: Denies PMH - Alcohol/Substance Use Hx Alcohol Use: No History of Substance Use: reports: None - Smoking History Smoking history: Never smoked Have you smoked in the past 12 months: No - Social History Usual Living Arrangement: With Spouse ADL: Independent Occupation: retired dental hygienist History of Recent Travel: No Home Medications - Allergies Allergies/Adverse Reactions: Allergies Allergy/AdvReac Type Severity Reaction Status Date / Time sulindac [From Clinoril] Allergy Unknown Rash Verified 06/19/16 19:39 CLINERAL Allergy Intermediate Hives Uncoded 06/19/16 19:39 - Home Medications Home Medications: Ambulatory Orders Acetaminophen [Tylenol] 650 mg PO Q4H PRN 06/20/16 Acetaminophen with Codeine [Tylenol with Codeine #3 Tablet] 1 each PO DAILY PRN 06/20/16 Collagenase Clostridium Hist. [Santyl] 1 applic TP DAILY 06/20/16 Docusate Sodium [Colace -] 200 mg PO HS 06/20/16 Oxycodone HCl [Oxycodone HCl ER] 10 mg PO BID PRN 06/20/16 Oxycodone HCl [Roxicodone -] 5 mg PO Q6H PRN 06/20/16 Pantoprazole Sodium [Protonix] 40 mg PO DAILY 06/20/16 Polyethylene Glycol 3350 [Miralax (For Daily Use) -] 17 gm PO BID PRN 06/20/16 Sulfamethoxazole/Trimethoprim [Bactrim Ds Tablet] 1 each PO BID 06/20/16 Family Disease History - Family Disease History Family Disease History: Heart Disease: Mother ( 80 congestive heart failure) , CA: Sister (breast cancer), Other: Father ( 56 of CVA) Review of Systems - Review of Systems Constitutional: reports: Fever Eyes: denies: Blind Spots, Blurred Vision HENT: denies: Difficult Swallowing, Ear Discharge Neck: denies: Decreased ROM, Lumps Cardiovascular: denies: Chest Pain, Edema Respiratory: denies: Cough, Exercise Intolerance Gastrointestinal: reports: Abdominal Pain Genitourinary: denies: Discharge, Dysuria Breasts: denies: Pain, Skin Changes Musculoskeletal: reports: Back Pain. denies: Muscle Pain Integumentary: denies: Blister, Bruising Neurological: denies: Change in LOC, Change in Speech Endocrine: denies: Excessive Sweating, Flushing Hematology/Lymphatic: denies: Easily Bruised, Excessive Bleeding Psychiatric: denies: Altered Sleep Pattern, Anxiety Physical Exam Vital Signs: Vital Signs Temperature 97.4 F L 06/20/16 07:20 Pulse Rate 87 06/20/16 07:20 Respiratory Rate 17 06/20/16 07:20 Blood Pressure 104/58 06/20/16 07:20 O2 Sat by Pulse Oximetry (%) 92 L 06/20/16 07:20 Constitutional: Yes: No Distress, Calm Eyes: Yes: Conjunctiva Clear, EOM Intact HENT: Yes: Atraumatic, Normocephalic Neck: Yes: Supple, Trachea Midline Cardiovascular: Yes: Regular Rate and Rhythm Respiratory: Yes: Regular, CTA Bilaterally Gastrointestinal: Yes: Soft, Tenderness (RLQ>LLQ), Other (ostomy viable, no output). No: Distention ...Rectal Exam: Yes: Deferred Renal/: No: CVA Tenderness - Left, CVA Tenderness - Right Breast(s): No: Mass, Nipple Inversion Musculoskeletal: No: Joint Stiffness, Joint Swelling Extremities: No: Calf Tenderness, Erythema Integumentary: No: Erythema, Rash Wound/Incision: Yes: Draining (lower aspect of incision draining seropurulent fluid. no erythema or induration of skin. retention sutures in place.), Other Neurological: Yes: Alert, Oriented Psychiatric: Yes: Alert, Oriented Imaging - Results Cat Scan: Report Reviewed, Image Reviewed Problem List - Problems (1) Abdominal pain Code(s): R10.9 - UNSPECIFIED ABDOMINAL PAIN Qualifiers: Abdominal location: generalized Qualified Code(s): R10.84 - Generalized abdominal pain (2) Abscess Code(s): L02.91 - CUTANEOUS ABSCESS, UNSPECIFIED (3) Fever Assessment/Plan: case d/w radiology. they will try to drain fluid collection. (order placed) can resume regular diet after IR drainage cont IV abx Code(s): R50.9 - FEVER, UNSPECIFIED Qualifiers: Fever type: unspecified Qualified Code(s): R50.9 - Fever, unspecified (4) Rectal malignant neoplasm Code(s): C20 - MALIGNANT NEOPLASM OF RECTUM
[2016-06-20] MEDS: PIPERACILLIN/TAZOB 3.375 GM/50 ML PRE-DOCKED IVPB SCH ×3 (11:01→17:26)
[2016-06-20] MEDS: morphine CARPU-JECT 2 MG/1 ML DISP.SYRIN IVPUSH PRN ×2 (12:02→16:16)
--- NOTE | 2016-06-20 12:03 | EKG ---
Test Reason : Blood Pressure : / mmHG Vent. Rate : 114 BPM Atrial Rate : 114 BPM P-R Int : 134 ms QRS Dur : 064 ms QT Int : 320 ms P-R-T Axes : 050 042 056 degrees QTc Int : 441 ms SINUS TACHYCARDIA WITH OCCASIONAL PREMATURE VENTRICULAR COMPLEXES OTHERWISE NORMAL ECG WHEN COMPARED WITH ECG OF 03-JUN-2016 19:43, PREMATURE VENTRICULAR COMPLEXES ARE NOW PRESENT VENT. RATE HAS INCREASED BY 38 BPM Confirmed by BROCK DESHPANDE, ELSI ([id number]) on 06/20/2016 12:02:41 PM Referred By: Confirmed By:ELSI GUTIÉRREZ MD
[2016-06-20 12:22] VITALS: BMI 20.4
--- NOTE | 2016-06-20 13:23 | PN ---
Progress Note (short form) - Note Progress Note: ID consult dictated imp/reccd 80 year old female with Stage 4 Rectal cancer recently diagnosed, was hospitalized 06/03 to 06/16 here at [facility] underwent colostomy 06/08, after discharge to [facility] 06/16 she noted drainage from abdominal wound yesterday she had severe abdominal pain and fever and was sent to ED she had a temp of [address] scan that showed multiple intraabdominal abscesses she was seen by surgery and was referred to IR for ct guided drainage which was just completed she now reports less pelvic pain after the drainage procedure she was given zosyn in the ED during the recent admission she received cefazolin, levaquin/flagyl s/p drainage of intraabdominal abscess f/u cultures continue zosyn stage 4 rectal cancer Problem List - Problems (1) Intra-abdominal abscess Code(s): K65.1 - PERITONEAL ABSCESS (2) Adenocarcinoma of rectum, stage 4 Code(s): C20 - MALIGNANT NEOPLASM OF RECTUM
--- NOTE | 2016-06-20 15:41 | HP ---
Admitting History and Physical - Primary Care Physician PCP: Anderson Lyons - Admission Chief Complaint: SENT FROM [facility] WITH SEVERE ABDOMINAL PAIN History of Present Illness: The patient is a 80 year old female, with a significant past medical history of colon CA with colostomy in place, who presents to the emergency department via ems from [facility] with severe abdominal pain and fever today. The patient states her abdominal pain is constant and worse when she extends her left lower extremity. She states her pain is slightly alleviated when shes lying flat with her left leg bent. As per the patient's family, the patient started her antibiotics yesterday and was ambulating with no complaints of pain. CT SCAN SHOWS ABDOMINAL ABSCESS. She denies chest pain, shortness of breath, headache and dizziness. She denies nausea, vomit, diarrhea and constipation. She denies dysuria, frequency, urgency and hematuria. Limitations to Obtaining History: No Limitations - Past Medical History Gastrointestinal: Yes: Cancer Musculoskeletal: Yes: Chronic low back pain - Smoking History Smoking history: Never smoked Have you smoked in the past 12 months: No - Alcohol/Substance Use Hx Alcohol Use: No History of Substance Use: reports: None - Social History ADL: Independent Occupation: retired dental hygienist History of Recent Travel: No Home Medications - Allergies Allergies/Adverse Reactions: Allergies Allergy/AdvReac Type Severity Reaction Status Date / Time sulindac [From Clinoril] Allergy Unknown Rash Verified 06/19/16 19:39 CLINERAL Allergy Intermediate Hives Uncoded 06/19/16 19:39 - Home Medications Home Medications: Ambulatory Orders Acetaminophen [Tylenol] 650 mg PO Q4H PRN 06/20/16 Acetaminophen with Codeine [Tylenol with Codeine #3 Tablet] 1 each PO DAILY PRN 06/20/16 Collagenase Clostridium Hist. [Santyl] 1 applic TP DAILY 06/20/16 Docusate Sodium [Colace -] 200 mg PO HS 06/20/16 Oxycodone HCl [Oxycodone HCl ER] 10 mg PO BID PRN 06/20/16 Oxycodone HCl [Roxicodone -] 5 mg PO Q6H PRN 06/20/16 Pantoprazole Sodium [Protonix] 40 mg PO DAILY 06/20/16 Polyethylene Glycol 3350 [Miralax (For Daily Use) -] 17 gm PO BID PRN 06/20/16 Sulfamethoxazole/Trimethoprim [Bactrim Ds Tablet] 1 each PO BID 06/20/16 Family Disease History - Family Disease History Family Disease History: Heart Disease: Mother ( 80 congestive heart failure) , CA: Sister (breast cancer), Other: Father ( 56 of CVA) Review of Systems - Review of Systems Constitutional: reports: Loss of Appetite, Weakness Eyes: reports: No Symptoms HENT: reports: No Symptoms Neck: reports: No Symptoms Cardiovascular: reports: No Symptoms Respiratory: reports: No Symptoms Gastrointestinal: reports: Abdominal Pain Genitourinary: reports: No Symptoms Musculoskeletal: reports: No Symptoms Integumentary: reports: No Symptoms Neurological: reports: No Symptoms Endocrine: reports: No Symptoms Hematology/Lymphatic: reports: No Symptoms Psychiatric: reports: No Symptoms Physical Examination Vital Signs: Vital Signs Temperature 97.4 F L 06/20/16 07:20 Pulse Rate 83 06/20/16 12:01 Respiratory Rate 18 06/20/16 12:01 Blood Pressure 111/57 06/20/16 12:01 O2 Sat by Pulse Oximetry (%) 93 L 06/20/16 12:11 Constitutional: Yes: Moderate Distress Eyes: Yes: WNL HENT: Yes: WNL Neck: Yes: WNL Cardiovascular: Yes: WNL Respiratory: Yes: WNL Gastrointestinal: Yes: Tenderness (COLOSTOMY AND LYNETTE DRAIN PURELENT DISCHARGE) Renal/: Yes: WNL Musculoskeletal: Yes: Muscle Weakness Extremities: Yes: WNL Edema: No Peripheral Pulses WNL: Yes Integumentary: Yes: WNL Wound/Incision: Yes: Dressing Dry and Intact Neurological: Yes: Other ...Motor Strength: LLE, RLE Psychiatric: Yes: WNL Problem List - Problems (1) Abdominal pain Code(s): R10.9 - UNSPECIFIED ABDOMINAL PAIN Qualifiers: Abdominal location: generalized Qualified Code(s): R10.84 - Generalized abdominal pain (2) Abscess Code(s): L02.91 - CUTANEOUS ABSCESS, UNSPECIFIED (3) Adenocarcinoma of rectum, stage 4 Code(s): C20 - MALIGNANT NEOPLASM OF RECTUM (4) Intra-abdominal abscess Code(s): K65.1 - PERITONEAL ABSCESS (5) Liver masses Code(s): R16.0 - HEPATOMEGALY, NOT ELSEWHERE CLASSIFIED Assessment/Plan IR FOR INTRAABDOMINAL ABSCESS DRAINAGE APPRECIATED NOW WITH PURELENT DISCHARGE TO DRAIN IV ABX PER ID ONCOLOGY EVAL FOR TREATMENT DVT PROPHYLAXIS NPO ON IVF SWALLOW EVAL
[2016-06-20] MEDS ORDERED: FOLIC ACID INJECTION - 1 MG, THIAMINE HCL 100 MG, MULTIVIT INJECTION ADULT 10 ML in SOD... IVPB ONE (15:43)
[2016-06-20] MEDS: MULTIVITAMINS (DAILY MVI) TABLET (FP) PO SCH (17:26)
[2016-06-20] MEDS: AMINO ACIDS/PROTEIN HYDROLYS 30 ML LIQUID.PKT PO SCH (17:27)
--- NOTE | 2016-06-20 17:40 | CONS ---
DATE OF CONSULTATION: DATE OF DICTATION: 06/20/2016 REQUESTING PHYSICIAN: Anderson Lyons M.D. CONSULTING PHYSICIAN: Courtney Poe M.D. HISTORY OF PRESENT ILLNESS: This is an 80-year-old woman who was originally admitted June 03 to [facility] with complaints of abdominal pain and constipation and abdominal distention. She had workup that included CAT scan, and she was ultimately found to have rectal cancer. She underwent a colostomy on June 08. The staging was felt to be a stage 4. [facility] Family reports after discharge that she was noted to have drainage from the abdominal incision. Yesterday she developed worsening abdominal pain, which was not improved with the oral analgesics. She developed fever and was sent to the hospital. In the emergency room, she had a CAT scan that revealed multiple intraabdominal abscesses. She was seen by surgery, who ordered IR drainage, and she has just returned from IR drainage with radiology. She reports feeling better at this time with less abdominal pressure. She received Zosyn in the emergency room and her fevers have resolved as well. She had a temperature of 102 on arrival. She reports that she was eating at the jail. PAST MEDICAL HISTORY: Notable for chronic low back pain. SURGICAL HISTORY: For bilateral mastoid surgery. SOCIAL HISTORY: She lives with her spouse. She is a retired dental hygienist. There is no history of any alcohol or substance use. ALLERGIES: She is allergic to SULINDAC. FAMILY HISTORY: Notable for heart disease in her mother, breast cancer in her sister. Her father of a CVA. CURRENT MEDICATIONS: At the jail include Bactrim, Miralax, Protonix, oxycodone, Colace, and Tylenol No. 3. REVIEW OF SYSTEMS: She denies dysuria, shortness of breath. She denies any vomiting. PHYSICAL EXAMINATION: General: She is awake and alert. Vital signs: T-max 102 last night. She has had no fever today. Current temperature 97.4, pulse 87, blood pressure 111/57, respiratory rate 18, and O2 saturation is 92%. HEENT: Normocephalic. Eyes are anicteric. Neck: Supple. Lungs: Clear to auscultation. Heart: Regular rate and rhythm. Abdomen: Soft. She had some midline incision with retention sutures. She has some brownish drainage from around the incision which is being held together with the retention sutures. She has a functioning colostomy, and she has a right lower quadrant drainage catheter which is draining currently serous fluid that is cloudy. LABORATORY: Notable for white count of 14,000, hemoglobin 12.5, platelets 652. Her BUN and creatinine are 14 and 0.9. Her LFTs are normal. Urinalysis has 3 white cells, and cultures are pending. CAT scan reveals multiple intraabdominal fluid collections. IMPRESSION: In summary, this is an 80-year-old woman with stage 4 rectal cancer status post recent colostomy June 08, now with intraabdominal abscesses. She is status post drainage of the abscesses, would follow up the cultures, continue her rectal cancer management per oncology. Surgery following her closely as well regarding her intraabdominal abscesses. COURTNEY POE M.D. [id number] MTDD
[2016-06-20] MEDS: ASCORBIC ACID 250 MG TABLET (FP) PO SCH (18:11)
--- NOTE | 2016-06-20 18:12 | CONSULT ---
Consult Consult Specialty:: Oncology-Hematology Referred by:: Dr. Lyons Reason for Consultation:: Rectal adenocarcinoma - History of Present Illness Chief Complaint: abdominal pain secondary to intra-abdominal abscesses - History Source History Provided By: Patient, Medical Record Limitations to Obtaining History: No Limitations - Past Medical History Gastrointestinal: Yes: Cancer Musculoskeletal: Yes: Chronic low back pain Additional Medical History: Denies PMH - Past Surgical History Additional Surgical History: colostomy - Alcohol/Substance Use Hx Alcohol Use: No History of Substance Use: reports: None - Smoking History Smoking history: Never smoked Have you smoked in the past 12 months: No - Social History Usual Living Arrangement: With Spouse ADL: Independent Occupation: retired dental hygienist History of Recent Travel: No Home Medications - Allergies Allergies/Adverse Reactions: Allergies Allergy/AdvReac Type Severity Reaction Status Date / Time sulindac [From [place]] Allergy Unknown Rash Verified 06/19/16 19:39 CLINERAL Allergy Intermediate Hives Uncoded 06/19/16 19:39 - Home Medications Home Medications: Ambulatory Orders Acetaminophen [Tylenol] 650 mg PO Q4H PRN 06/20/16 Acetaminophen with Codeine [Tylenol with Codeine #3 Tablet] 1 each PO DAILY PRN 06/20/16 Collagenase Clostridium Hist. [Santyl] 1 applic TP DAILY 06/20/16 Docusate Sodium [Colace -] 200 mg PO HS 06/20/16 Oxycodone HCl [Oxycodone HCl ER] 10 mg PO BID PRN 06/20/16 Oxycodone HCl [Roxicodone -] 5 mg PO Q6H PRN 06/20/16 Pantoprazole Sodium [Protonix] 40 mg PO DAILY 06/20/16 Polyethylene Glycol 3350 [Miralax (For Daily Use) -] 17 gm PO BID PRN 06/20/16 Sulfamethoxazole/Trimethoprim [Bactrim Ds Tablet] 1 each PO BID 06/20/16 Family Disease History - Family Disease History Family Disease History: Heart Disease: Mother ( 80 congestive heart failure) , CA: Sister (breast cancer), Other: Father ( 56 of CVA) Review of Systems - Review of Systems Constitutional: reports: Fever, Loss of Appetite, Malaise, Unintentional Wgt. Loss Eyes: denies: Blurred Vision, Double Vision HENT: denies: Difficult Swallowing, Epistaxis Neck: denies: No Symptoms, Pain on Movement, Stiffness, Tenderness Cardiovascular: denies: Chest Pain, Palpitations, Shortness of Breath Respiratory: denies: SOB on Exertion Gastrointestinal: reports: Abdominal Pain, Bloating Genitourinary: denies: Burning, Dysuria Breasts: reports: No Symptoms Reported Musculoskeletal: reports: Back Pain Integumentary: denies: Bruising, Eczema, Erythema Neurological: reports: No Symptoms Endocrine: reports: No Symptoms Hematology/Lymphatic: reports: No Symptoms Psychiatric: reports: No Symptoms Physical Exam Vital Signs: Vital Signs Temperature 97.4 F L 06/20/16 07:20 Pulse Rate 83 06/20/16 12:01 Respiratory Rate 18 06/20/16 12:01 Blood Pressure 111/57 06/20/16 12:01 O2 Sat by Pulse Oximetry (%) 93 L 06/20/16 12:11 Constitutional: Yes: Mild Distress Eyes: Yes: PERRL. No: Ptosis, Sclera Icterus HENT: No: Epistaxis, Tonsillar Exudate Neck: No: Lymphadenopathy Cardiovascular: Yes: Regular Rate and Rhythm Respiratory: Yes: Diminished Gastrointestinal: Yes: Normal Bowel Sounds, Distention, Tenderness (dressing), Other (colostomy). No: Hepatomegaly, Splenomegaly Renal/: No: CVA Tenderness - Left, CVA Tenderness - Right Breast(s): Yes: WNL, Left, Right Musculoskeletal: Yes: WNL Extremities: Yes: WNL Edema: No (scd) Peripheral Pulses WNL: No Integumentary: No: Jaundice, Rash Wound/Incision: Yes: Dressing Dry and Intact Neurological: Yes: WNL ...Motor Strength: WNL Psychiatric: Yes: WNL Imaging - Results Cat Scan: Report Reviewed, Image Reviewed Problem List - Problems (1) Abscess Assessment/Plan: S/p draonage of intrabdominal abscess with decrease in abdominal pains. ANTIBIOTICS PER .ID Code(s): L02.91 - CUTANEOUS ABSCESS, UNSPECIFIED (2) Adenocarcinoma of rectum, stage 4 Assessment/Plan: Peritoneal implants. Initial presentation with obstruction requiring colostomy. Would consider xeloda in future when infection has resolved. In addition, discussion about local RT. Code(s): C20 - MALIGNANT NEOPLASM OF RECTUM (3) DVT prophylaxis Code(s): [id number] -
[2016-06-21] MEDS: PIPERACILLIN/TAZOB 3.375 GM/50 ML PRE-DOCKED IVPB SCH ×3 (01:11→17:33)
[2016-06-21] MEDS: morphine CARPU-JECT 2 MG/1 ML DISP.SYRIN IVPUSH PRN ×3 (02:46→20:06)
[2016-06-21] MEDS: AMINO ACIDS/PROTEIN HYDROLYS 30 ML LIQUID.PKT PO SCH ×2 (08:23→17:32)
[2016-06-21] MEDS: DEXTROSE 5%-NORMAL SALINE 1,000 ML IV SCH (08:24)
[2016-06-21] MEDS ORDERED: PT OWN MED DRAWER 7, Y5N ONE (09:17)
[2016-06-21] MEDS: MULTIVITAMINS (DAILY MVI) TABLET (FP) PO SCH (09:19)
[2016-06-21] MEDS: ASCORBIC ACID 250 MG TABLET (FP) PO SCH (09:19)
--- NOTE | 2016-06-21 10:02 | CONSULT ---
Admitting History and Physical - Primary Care Physician PCP: Anderson Lyons - Admission History of Present Illness: 80 year old female with stage 4 rectal cancer with colostomy in place, admitted with severe abdominal pain and temp of 102. ct scan that showed multiple intraabdominal abscesses IR for ct guided drainage Placed back on regular diet. History Source: Patient Limitations to Obtaining History: No Limitations - Past Medical History Gastrointestinal: Yes: Cancer Musculoskeletal: Yes: Chronic low back pain - Smoking History Smoking history: Never smoked Have you smoked in the past 12 months: No - Alcohol/Substance Use Hx Alcohol Use: No History of Substance Use: reports: None - Social History ADL: Independent Occupation: retired dental hygienist History of Recent Travel: No History - Admission Reason For Visit: ABDOMINAL PAIN AND FEVER - Diagnostics X-ray: Report Reviewed CT Scan: Report Reviewed - General Mental Status: Alert and Oriented, Awake and Alert, Able to Follow Commands Attention: Intact Ability to Follow Directions: Good Head/Neck Control: WFL - Hearing Hearing: Normal Speech Evaluation - Communication Primary Language: LIBYAN Communication: Yes: Within Normal Limits Oral Expression Ability: Yes: No Impairment - Language/Verbal Expression Able to Communicate Wants and Needs: Yes: WNL Functional Communication Status: Yes: WNL - Swallow Evaluation/Bedside Assessment Current Nutritional Intake: Regular, Thin Liquids Oral Secretions: Yes: WFL Dentition: Yes: Adequate Facial Symmetry at Rest: Symmetrical Facial Symmetry on Retraction: Symmetrical Facial Movement: Controlled Sensation: Normal Against Resistance Opening: Normal Against Resistance Closing: Normal Pucker Lips: Normal Smile: Normal Lingual Movement: Normal Lingual Speed of Movement: Normal Lingual Movement Strgth Against Opposition: Normal Lingual Movement Characteristics: Normal Velopharyngeal Movement: Normal Laryngeal Elevation: WFL Laryngeal Movement: Able to Palpate Rate of Intake: WFL Bolus Size: WFL Labial Seal: WFL Chewing: WFL Oral Prep Time: WFL A-P Transit: WFL Pocketing: None Timing of Swallow: WFL Coughing/Throat Clear: No Change in Voice: No Recommendations - Speech Evaluation, Impression/Plan Impression: Pt reported feeling food and liquid going down the esophagus? yesterday, but symptoms have cleared. Pt completed breakfast without signs or symptoms of dysphagia. Normal assessment overtly. - Dysphagia Impressions/Plan Swallowing Skills: WFL Dysphagia Impressions: No Impairment *Silent aspiration: cannot be R/O at bedside Recommendations: Other (Please inform me if signs of dysphagia noted.) - Recommendations Diet Consistency: Regular Medication Administration: Whole with water Liquids: Thin Liquids
--- NOTE | 2016-06-21 11:22 | PN ---
Progress Note, Physician Chief Complaint: AWAKE ALERT WANTS TO GET UP AND WALK +APPETITE - Current Medication List Current Medications: Active Medications Amino Acids (Prosource No Carb Liquid Pkt) 30 ml PO BID@0800,1730 [facility] Last Admin: 06/21/16 08:23 Dose: 30 ml Ascorbic Acid (Vitamin C -) 250 mg PO DAILY [facility] Last Admin: 06/21/16 09:19 Dose: 250 mg Dextrose/Sodium Chloride (D5-Ns -) 1,000 mls @ 83 mls/hr IV ASDIR [facility] Last Admin: 06/21/16 08:24 Dose: 83 mls/hr Morphine Sulfate (Morphine Injection -) 2 mg IVPUSH Q4H PRN PRN Reason: PAIN Last Admin: 06/21/16 02:46 Dose: 2 mg Multivitamins/Minerals/Vitamin C (Tab-A-Vit -) 1 tab PO DAILY [facility] Last Admin: 06/21/16 09:19 Dose: 1 tab Ondansetron HCl (Zofran Injection) 4 mg IVPB Q6H PRN PRN Reason: NAUSEA Piperacillin Sod/Tazobactam Sod (Zosyn 3.375gm Ivpb (Pre-Docked)) 3.375 gm IVPB Q8H-IV SHRUTHI PRN Reason: Protocol Last Admin: 06/21/16 09:19 Dose: 3.375 gm - Objective Vital Signs: Vital Signs Temperature 98.0 F 06/21/16 09:00 Pulse Rate 92 H 06/21/16 09:00 Respiratory Rate 20 06/21/16 09:00 Blood Pressure 88/56 06/21/16 09:00 O2 Sat by Pulse Oximetry (%) 96 06/20/16 21:00 Constitutional: Yes: Mild Distress Eyes: Yes: WNL HENT: Yes: WNL Neck: Yes: WNL Cardiovascular: Yes: WNL Respiratory: Yes: WNL Gastrointestinal: Yes: Tenderness, Other (COLOSTOMY) Genitourinary: Yes: Other Musculoskeletal: Yes: Muscle Weakness Extremities: Yes: WNL Edema: No Peripheral Pulses WNL: Yes Integumentary: Yes: WNL Wound/Incision: Yes: Clean/Dry Neurological: Yes: WNL ...Motor Strength: LLE, RLE (WEAKNESS) Psychiatric: Yes: WNL Labs: INR, PTT INR 1.15 (0.82-1.09) H 06/19/16 21:00 Problem List - Problems (1) Abdominal pain Code(s): R10.9 - UNSPECIFIED ABDOMINAL PAIN Qualifiers: Abdominal location: generalized Qualified Code(s): R10.84 - Generalized abdominal pain (2) Abscess Code(s): L02.91 - CUTANEOUS ABSCESS, UNSPECIFIED (3) Adenocarcinoma of rectum, stage 4 Code(s): C20 - MALIGNANT NEOPLASM OF RECTUM (4) Intra-abdominal abscess Code(s): K65.1 - PERITONEAL ABSCESS (5) Liver masses Code(s): R16.0 - HEPATOMEGALY, NOT ELSEWHERE CLASSIFIED Assessment/Plan IR FOR INTRAABDOMINAL ABSCESS DRAINAGE APPRECIATED NOW WITH PURELENT DISCHARGE TO DRAIN IV ABX PER ID ONCOLOGY EVAL FOR TREATMENT DVT PROPHYLAXIS REG DIET OOB TO CHAIR IV MVI REMERON FOR DEPRESSION/SLEEP/APPETITE STIMULANT SWALLOW EVAL
--- NOTE | 2016-06-21 13:12 | PN ---
Progress Note (short form) - Note Progress Note: some pain at drainage catheter site Vital Signs Period Temp Pulse Resp BP Sys/Mead Pulse Ox Last 24 Hr 97.8 F-99.0 F 64-96 20-20 88-104/46-62 96 cor-rrr lulngs clear abd dressing intact, +ostomy +marleny drain ext no edema CBC, BMP 06/19/16 21:00 06/19/16 21:00 Microbiology 06/20/16 03:37 Urine - Urine - Catheterized Urine Culture - Final NO GROWTH OBTAINED 06/19/16 21:00 Blood - Peripheral Venous Blood Culture - Preliminary NO GROWTH OBTAINED AFTER 24 HOURS, INCUBATION TO CONTINUE FOR 4 DAYS. 06/19/16 21:00 Blood - Peripheral Venous Blood Culture - Preliminary NO GROWTH OBTAINED AFTER 24 HOURS, INCUBATION TO CONTINUE FOR 4 DAYS. drainage culture and gram stain pending a/p s/p IR drainage of intraabdominal collection yesterday- f/u cultures, continue zosyn stage 4 rectal cancer Problem List - Problems (1) Intra-abdominal abscess Code(s): K65.1 - PERITONEAL ABSCESS (2) Adenocarcinoma of rectum, stage 4 Code(s): C20 - MALIGNANT NEOPLASM OF RECTUM
[2016-06-21 13:33] LABS: BASOPHIL 0.5 % (0-2.0); EOSINOPHIL 0.4 % (0-4.5); MCH 29.7 pg (25.7-33.7); MCHC 32.8 g/dl (32.0-36.0); MEAN CELL VOLUME 90.7 fl (80-96); MEAN PLT VOLUME 7.7 fl (7.5-11.1); NEUTROPHILS 94.3 % (42.8-82.8); PLATELET COUNT 482 K/MM3 (134-434); RDW 16.1 % (11.6-15.6)
--- NOTE | 2016-06-21 15:50 | PN ---
Progress Note, Physician Chief Complaint: pain at drain site History of Present Illness: no more fever. wbc from 14->18. patient feels pain at drain site but overall feels alot better after IR drainage. tolerated 50% reg diet. no cultures back yet from drain fluid. - Current Medication List Current Medications: Active Medications Amino Acids (Prosource No Carb Liquid Pkt) 30 ml PO BID@0800,1730 [facility] Last Admin: 06/21/16 08:23 Dose: 30 ml Ascorbic Acid (Vitamin C -) 250 mg PO DAILY [facility] Last Admin: 06/21/16 09:19 Dose: 250 mg Dextrose/Sodium Chloride (D5-Ns -) 1,000 mls @ 83 mls/hr IV ASDIR [facility] Last Admin: 06/21/16 08:24 Dose: 83 mls/hr Mirtazapine (Remeron -) 7.5 mg PO HS SHRUTHI Morphine Sulfate (Morphine Injection -) 2 mg IVPUSH Q4H PRN PRN Reason: PAIN Last Admin: 06/21/16 13:15 Dose: 2 mg Multivitamins/Minerals/Vitamin C (Tab-A-Vit -) 1 tab PO DAILY [facility] Last Admin: 06/21/16 09:19 Dose: 1 tab Ondansetron HCl (Zofran Injection) 4 mg IVPB Q6H PRN PRN Reason: NAUSEA Piperacillin Sod/Tazobactam Sod (Zosyn 3.375gm Ivpb (Pre-Docked)) 3.375 gm IVPB Q8H-IV SHRUTHI PRN Reason: Protocol Last Admin: 06/21/16 09:19 Dose: 3.375 gm - Objective Vital Signs: Vital Signs Temperature 97.6 F 06/21/16 13:22 Pulse Rate 93 H 06/21/16 13:22 Respiratory Rate 18 06/21/16 13:22 Blood Pressure 88/56 06/21/16 09:00 O2 Sat by Pulse Oximetry (%) 96 06/20/16 21:00 Constitutional: Yes: No Distress, Calm Eyes: Yes: Conjunctiva Clear, EOM Intact HENT: Yes: Atraumatic, Normocephalic Neck: Yes: Supple, Trachea Midline Cardiovascular: Yes: Regular Rate and Rhythm Respiratory: Yes: Regular Gastrointestinal: Yes: Soft, Tenderness (near drain. output is serous>? ostomy min output). No: Distention ...Rectal Exam: Yes: Deferred Genitourinary: No: CVA Tenderness - Left, CVA Tenderness - Right Breast(s): No: Left, Right Musculoskeletal: No: Back Pain, Joint Stiffness Extremities: No: Calf Tenderness, Erythema Integumentary: No: Erythema, Rash Neurological: Yes: Alert, Oriented Psychiatric: Yes: Alert, Oriented Labs: CBC, BMP 06/21/16 13:05 INR, PTT INR 1.15 (0.82-1.09) H 06/19/16 21:00 Problem List - Problems (1) Abdominal pain Assessment/Plan: s/p IR drainage monitor WBC if cont to worsen may need LLQ drained? cont reg diet await speciation Code(s): R10.9 - UNSPECIFIED ABDOMINAL PAIN Qualifiers: Abdominal location: generalized Qualified Code(s): R10.84 - Generalized abdominal pain (2) Abscess Code(s): L02.91 - CUTANEOUS ABSCESS, UNSPECIFIED (3) Fever Code(s): R50.9 - FEVER, UNSPECIFIED Qualifiers: Fever type: unspecified Qualified Code(s): R50.9 - Fever, unspecified (4) Rectal malignant neoplasm Code(s): C20 - MALIGNANT NEOPLASM OF RECTUM
[2016-06-21] MEDS: MIRTAZAPINE 15 MG TABLET (FP) PO SCH (21:17)
[2016-06-22] MEDS: PIPERACILLIN/TAZOB 3.375 GM/50 ML PRE-DOCKED IVPB SCH ×3 (01:06→17:20)
[2016-06-22] MEDS: DEXTROSE 5%-NORMAL SALINE 1,000 ML IV SCH ×3 (03:30→19:59)
[2016-06-22] MEDS: morphine CARPU-JECT 2 MG/1 ML DISP.SYRIN IVPUSH PRN ×3 (07:37→20:48)
[2016-06-22] MEDS: AMINO ACIDS/PROTEIN HYDROLYS 30 ML LIQUID.PKT PO SCH ×2 (07:38→17:20)
[2016-06-22 07:39] LABS: MCH 30.1 pg (25.7-33.7); MCHC 33.7 g/dl (32.0-36.0); MEAN CELL VOLUME 89.3 fl (80-96); MEAN PLT VOLUME 7.7 fl (7.5-11.1); PLATELET COUNT 421 K/MM3 (134-434); RDW 15.5 % (11.6-15.6); WHITE BLOOD COUNT 12.5 K/mm3 (4.0-10.0)
[2016-06-22 08:11] LABS: ALBUMIN 1.5 g/dl (3.4-5.0); ANION GAP 9 (8-16); CALCIUM 7.4 mg/dL (8.5-10.1); CO2 22 mmol/L (21-32)
[2016-06-22 08:17] LABS: ALK PHOS 97 U/L (45-117); BILIRUBIN,TOTAL 0.4 mg/dL (0.2-1.0); CREATININE 0.7 mg/dL (0.55-1.02); GLUCOSE,RANDOM 88 mg/dL (74-106); SGOT/AST 20 U/L (15-37); SGPT/ALT 17 U/L (12-78); TOT PROT 4.6 g/dl (6.4-8.2)
--- NOTE | 2016-06-22 10:26 | PN ---
Progress Note, Physician Chief Complaint: I WAS CALLED BY DR GARCIA FROM [facility] WHO IS TRYING TO TRANSFER THE PATIENT THERE. FAMILY AND PATIENT ARE BOTH WILLING TO DO SO. PATIENT +APPETITE TODAY C/O ABD PAIN - Current Medication List Current Medications: Active Medications Amino Acids (Prosource No Carb Liquid Pkt) 30 ml PO BID@0800,1730 [facility] Last Admin: 06/22/16 07:38 Dose: 30 ml Ascorbic Acid (Vitamin C -) 250 mg PO DAILY [facility] Last Admin: 06/21/16 09:19 Dose: 250 mg Dextrose/Sodium Chloride (D5-Ns -) 1,000 mls @ 83 mls/hr IV ASDIR [facility] Last Admin: 06/22/16 10:17 Dose: Not Given Potassium Chloride (Potassium Chloride 10 Meq Premix Ivpb -) 100 mls @ 100 mls/ hr IVPB Q60M [facility] Stop: 06/22/16 11:29 Mirtazapine (Remeron -) 7.5 mg PO HS [facility] Last Admin: 06/21/16 21:17 Dose: 7.5 mg Morphine Sulfate (Morphine Injection -) 2 mg IVPUSH Q4H PRN PRN Reason: PAIN Last Admin: 06/22/16 07:37 Dose: 2 mg Multivitamins/Minerals/Vitamin C (Tab-A-Vit -) 1 tab PO DAILY [facility] Last Admin: 06/21/16 09:19 Dose: 1 tab Ondansetron HCl (Zofran Injection) 4 mg IVPB Q6H PRN PRN Reason: NAUSEA Piperacillin Sod/Tazobactam Sod (Zosyn 3.375gm Ivpb (Pre-Docked)) 3.375 gm IVPB Q8H-IV SHRUTHI PRN Reason: Protocol Last Admin: 06/22/16 10:15 Dose: 3.375 gm - Objective Vital Signs: Vital Signs Temperature 97.9 F 06/22/16 07:59 Pulse Rate 88 06/22/16 07:59 Respiratory Rate 20 06/22/16 07:59 Blood Pressure 144/65 06/22/16 07:59 O2 Sat by Pulse Oximetry (%) 94 L 06/21/16 21:00 Constitutional: Yes: Mild Distress Eyes: Yes: WNL HENT: Yes: WNL Neck: Yes: WNL Cardiovascular: Yes: WNL Respiratory: Yes: WNL Gastrointestinal: Yes: Tenderness (COLOSTOMY), Other Genitourinary: Yes: WNL Musculoskeletal: Yes: Muscle Weakness Extremities: Yes: WNL Edema: No Peripheral Pulses WNL: Yes Integumentary: Yes: Other Wound/Incision: Yes: Draining (LYNETTE DRAIN ABDOMEN) ...Motor Strength: WNL Psychiatric: Yes: WNL Labs: CBC, BMP 06/22/16 06:20 06/22/16 06:20 INR, PTT INR 1.15 (0.82-1.09) H 06/19/16 21:00 Problem List - Problems (1) Abdominal pain Code(s): R10.9 - UNSPECIFIED ABDOMINAL PAIN Qualifiers: Abdominal location: generalized Qualified Code(s): R10.84 - Generalized abdominal pain (2) Abscess Code(s): L02.91 - CUTANEOUS ABSCESS, UNSPECIFIED (3) Adenocarcinoma of rectum, stage 4 Code(s): C20 - MALIGNANT NEOPLASM OF RECTUM (4) Intra-abdominal abscess Code(s): K65.1 - PERITONEAL ABSCESS (5) Liver masses Code(s): R16.0 - HEPATOMEGALY, NOT ELSEWHERE CLASSIFIED Assessment/Plan IR FOR INTRAABDOMINAL ABSCESS DRAINAGE APPRECIATED NOW WITH PURELENT DISCHARGE TO DRAIN IV ABX PER ID ONCOLOGY EVAL FOR TREATMENT DVT PROPHYLAXIS REG DIET OOB TO CHAIR IV MVI REMERON FOR DEPRESSION/SLEEP/APPETITE STIMULANT SWALLOW EVAL [facility] REPLETED TRANSFER TO [facility] WHEN BED AVAILABLE [phone] DR VO
[2016-06-22] MEDS ORDERED: KCL 10 MEQ IVPB 100 ML IVPB SCH (10:30)
[2016-06-22] MEDS ORDERED: POTASSIUM CHLORIDE TABS 20 MEQ TABLET.ER (FP) PO ONE (10:35)
[2016-06-22] MEDS: MULTIVITAMINS (DAILY MVI) TABLET (FP) PO SCH (10:56)
[2016-06-22] MEDS: ASCORBIC ACID 250 MG TABLET (FP) PO SCH (10:56)
--- NOTE | 2016-06-22 11:21 | PN ---
Progress Note, Physician Chief Complaint: pain better today History of Present Illness: still having pain at drain site and suprapubic region. tolerating reg diet. wbc improved to 12.5 but Hct 37->29->24. - Current Medication List Current Medications: Active Medications Amino Acids (Prosource No Carb Liquid Pkt) 30 ml PO BID@0800,1730 [facility] Last Admin: 06/22/16 07:38 Dose: 30 ml Ascorbic Acid (Vitamin C -) 250 mg PO DAILY [facility] Last Admin: 06/22/16 10:56 Dose: 250 mg Dextrose/Sodium Chloride (D5-Ns -) 1,000 mls @ 83 mls/hr IV ASDIR [facility] Last Admin: 06/22/16 10:17 Dose: Not Given Potassium Chloride (Potassium Chloride 10 Meq Premix Ivpb -) 100 mls @ 100 mls/ hr IVPB Q60M [facility] Stop: 06/22/16 11:29 Last Admin: 06/22/16 10:56 Dose: 100 mls/hr Mirtazapine (Remeron -) 7.5 mg PO HS [facility] Last Admin: 06/21/16 21:17 Dose: 7.5 mg Morphine Sulfate (Morphine Injection -) 2 mg IVPUSH Q4H PRN PRN Reason: PAIN Last Admin: 06/22/16 07:37 Dose: 2 mg Multivitamins/Minerals/Vitamin C (Tab-A-Vit -) 1 tab PO DAILY [facility] Last Admin: 06/22/16 10:56 Dose: 1 tab Ondansetron HCl (Zofran Injection) 4 mg IVPB Q6H PRN PRN Reason: NAUSEA Piperacillin Sod/Tazobactam Sod (Zosyn 3.375gm Ivpb (Pre-Docked)) 3.375 gm IVPB Q8H-IV SHRUTHI PRN Reason: Protocol Last Admin: 06/22/16 10:15 Dose: 3.375 gm - Objective Vital Signs: Vital Signs Temperature 97.9 F 06/22/16 07:59 Pulse Rate 88 06/22/16 07:59 Respiratory Rate 20 06/22/16 07:59 Blood Pressure 144/65 06/22/16 07:59 O2 Sat by Pulse Oximetry (%) 94 L 06/21/16 21:00 Constitutional: Yes: No Distress, Calm Eyes: Yes: Conjunctiva Clear, EOM Intact HENT: Yes: Atraumatic, Normocephalic Neck: Yes: Supple, Trachea Midline Cardiovascular: Yes: Regular Rate and Rhythm Respiratory: Yes: Regular, CTA Bilaterally Gastrointestinal: Yes: Soft, Tenderness (lower aspect of incision and near drain site. drain putting out serous fluid. at most inferior aspect of incision wound is draining purulent material. no induration of erythema of skin.). No: Distention Genitourinary: No: CVA Tenderness - Left, CVA Tenderness - Right Musculoskeletal: No: Joint Stiffness, Joint Swelling Integumentary: Yes: Bruising. No: Erythema, Rash Wound/Incision: Yes: Draining Neurological: Yes: Alert, Oriented Psychiatric: Yes: Alert, Oriented Labs: CBC, BMP 06/22/16 06:20 06/22/16 06:20 INR, PTT INR 1.15 (0.82-1.09) H 06/19/16 21:00 Problem List - Problems (1) Abdominal pain Assessment/Plan: nurse will change dressing. i suspect part of her intra-abd infection is draining thru lower midline incision. while improving may need LLQ drained by IR as well. cont reg diet cont abx Code(s): R10.9 - UNSPECIFIED ABDOMINAL PAIN Qualifiers: Abdominal location: generalized Qualified Code(s): R10.84 - Generalized abdominal pain (2) Abscess Code(s): L02.91 - CUTANEOUS ABSCESS, UNSPECIFIED (3) Fever Code(s): R50.9 - FEVER, UNSPECIFIED Qualifiers: Fever type: unspecified Qualified Code(s): R50.9 - Fever, unspecified (4) Rectal malignant neoplasm Code(s): C20 - MALIGNANT NEOPLASM OF RECTUM
--- NOTE | 2016-06-22 16:04 | PN ---
Progress Note (short form) - Note Progress Note: some pain at drainage catheter site persists tolerating po diet Vital Signs Period Temp Pulse Resp BP Sys/Mead Pulse Ox Last 24 Hr 97.7 F-100.2 F 87-97 17-20 104-144/58-65 94 cor-rrr lungs clear abd retention sutures intact, drainage from lower end +marleny drain with serous fluid ext no edema CBC, BMP 06/22/16 06:20 06/22/16 06:20 Microbiology 06/20/16 11:50 Abdomen Body Fluid Culture - Preliminary Lactose Fermenting Neg Bacilli 06/19/16 21:00 Blood - Peripheral Venous Blood Culture - Preliminary NO GROWTH OBTAINED AFTER 48 HOURS, INCUBATION TO CONTINUE FOR 3 DAYS. 06/19/16 21:00 Blood - Peripheral Venous Blood Culture - Preliminary NO GROWTH OBTAINED AFTER 48 HOURS, INCUBATION TO CONTINUE FOR 3 DAYS. 06/20/16 03:37 Urine - Urine - Catheterized Urine Culture - Final NO GROWTH OBTAINED a/p s/p IR drainage of intraabdominal collection - f/u cultures, continue zosyn stage 4 rectal cancer Problem List - Problems (1) Intra-abdominal abscess Code(s): K65.1 - PERITONEAL ABSCESS (2) Adenocarcinoma of rectum, stage 4 Code(s): C20 - MALIGNANT NEOPLASM OF RECTUM
[2016-06-22] MEDS: MIRTAZAPINE 15 MG TABLET (FP) PO SCH (21:35)
[2016-06-23] MEDS: PIPERACILLIN/TAZOB 3.375 GM/50 ML PRE-DOCKED IVPB SCH ×2 (01:21→12:15)
[2016-06-23] MEDS: morphine CARPU-JECT 2 MG/1 ML DISP.SYRIN IVPUSH PRN (05:07)
[2016-06-23] MEDS ORDERED: FOLIC ACID INJECTION - 1 MG, THIAMINE HCL 100 MG, MULTIVIT INJECTION ADULT 10 ML in SOD... IVPB ONE (07:05)
[2016-06-23 07:46] LABS: MCH 30.3 pg (25.7-33.7); MCHC 34.2 g/dl (32.0-36.0); MEAN CELL VOLUME 88.6 fl (80-96); PLATELET COUNT 465 K/MM3 (134-434); RDW 15.7 % (11.6-15.6)
[2016-06-23 07:49] LABS: ALBUMIN 1.6 g/dl (3.4-5.0); ANION GAP 12 (8-16); CALCIUM 7.6 mg/dL (8.5-10.1); CO2 23 mmol/L (21-32); GLUCOSE,RANDOM 94 mg/dL (74-106); MAGNESIUM 1.7 mg/dL (1.8-2.4)
[2016-06-23 07:54] LABS: ALK PHOS 176 U/L (45-117); BILIRUBIN,TOTAL 0.4 mg/dL (0.2-1.0); CREATININE 0.6 mg/dL (0.55-1.02); PHOSPHOROUS 3.1 mg/dL (2.5-4.9); SGOT/AST 142 U/L (15-37); SGPT/ALT 98 U/L (12-78); TOT PROT 5.1 g/dl (6.4-8.2)
[2016-06-23] MEDS ORDERED: MIDAZOLAM HCL 2 MG/2 ML SINGLE DOSE VIAL IVPUSH ONE ×2 (10:44→10:50)
[2016-06-23] MEDS ORDERED: PT OWN MED DRAWER 7, Y5N ONE (12:06)
[2016-06-23] MEDS: DEXTROSE 5%-NORMAL SALINE 1,000 ML IV SCH (12:15)
[2016-06-23] MEDS: ASCORBIC ACID 250 MG TABLET (FP) PO SCH (12:16)
[2016-06-23] MEDS: AMINO ACIDS/PROTEIN HYDROLYS 30 ML LIQUID.PKT PO SCH ×2 (12:16→17:31)
[2016-06-23] MEDS: MULTIVITAMINS (DAILY MVI) TABLET (FP) PO SCH (12:16)
--- NOTE | 2016-06-23 14:18 | PN ---
Progress Note (short form) - Note Progress Note: s/p drainage of pelvic abscess she is resting post procedure Vital Signs Period Temp Pulse Resp BP Sys/Mead Pulse Ox Last 24 Hr 97.1 F-99.5 F 81-93 16-29 135-160/67-81 94-100 cor-rrr lungs clear abd soft, nt ext no edema CBC, BMP 06/23/16 06:10 06/23/16 06:10 Microbiology 06/20/16 11:50 Gram Stain - Final Abdomen Body Fluid Culture - Final Citrobacter Freundii Complex Anaerobic Culture - Preliminary Pending Organism Pending Organism#2 06/19/16 21:00 Blood Culture - Preliminary Blood - Peripheral Venous NO GROWTH OBTAINED AFTER 72 HOURS, INCUBATION TO CONTINUE FOR 2 DAYS. 06/19/16 21:00 Blood Culture - Preliminary Blood - Peripheral Venous NO GROWTH OBTAINED AFTER 72 HOURS, INCUBATION TO CONTINUE FOR 2 DAYS. a/p s/p IR drainage of intraabdominal collection - f/u cultures, continue zosyn stage 4 rectal cancer Problem List - Problems (1) Intra-abdominal abscess Code(s): K65.1 - PERITONEAL ABSCESS (2) Adenocarcinoma of rectum, stage 4 Code(s): C20 - MALIGNANT NEOPLASM OF RECTUM
--- NOTE | 2016-06-23 14:58 | DS ---
Physical Examination Vital Signs: Vital Signs Temperature 99.5 F 06/23/16 05:30 Pulse Rate 89 06/23/16 11:18 Respiratory Rate 17 06/23/16 11:18 Blood Pressure 156/77 06/23/16 11:18 O2 Sat by Pulse Oximetry (%) 100 06/23/16 11:18 Findings/Remarks: MOD DISTRESS Constitutional: Yes: Mild Distress Eyes: Yes: WNL HENT: Yes: WNL Neck: Yes: WNL Cardiovascular: Yes: WNL Respiratory: Yes: WNL Gastrointestinal: Yes: Distention, Other (COLOSTOMY) ...Rectal Exam: Yes: Other Renal/: Yes: WNL Musculoskeletal: Yes: Muscle Weakness Extremities: Yes: Other Edema: Yes Edema: LLE: Trace, RLE: Trace Peripheral Pulses WNL: Yes Integumentary: Yes: WNL Wound/Incision: Yes: Dressing Dry and Intact Neurological: Yes: Weakness ...Motor Strength: LLE, RLE Psychiatric: Yes: WNL Labs: CBC, BMP 06/23/16 06:10 06/23/16 06:10 Discharge Summary Reason For Visit: ABDOMINAL PAIN AND FEVER Current Active Problems Abdominal pain (Acute) Abscess (Acute) Adenocarcinoma of rectum, stage 4 (Acute) Fever (Acute) Intra-abdominal abscess (Acute) Procedures: Principal: CT DRAIN OF ABSCESS Other Procedures: SONO Hospital Course: ADMITTED FOR ABD PAIN, FOUND TO HAVE CT DRAIN OD ABD ABSCESS, TRANSFERRING TO [facility] FOR CANCER TREATMENT Condition: Guarded - Instructions Diet, Activity, Other Instructions: REG Referrals: Anderson Lyons MD [Primary Care Provider] - Disposition: TRANSFER ACUTE CARE/OTHER HOSP - Home Medications Comprehensive Discharge Medication List: Ambulatory Orders Acetaminophen [Tylenol] 650 mg PO Q4H PRN 06/20/16 Collagenase Clostridium Hist. [Santyl -] 1 applic TP DAILY 06/20/16 Docusate Sodium [Colace -] 200 mg PO HS 06/20/16 Oxycodone HCl [Oxycodone HCl ER] 10 mg PO BID PRN 06/20/16 Oxycodone HCl [Roxicodone -] 5 mg PO Q6H PRN 06/20/16 Pantoprazole Sodium [Protonix] 40 mg PO DAILY 06/20/16 Polyethylene Glycol 3350 [Miralax 119 gm Btl -] 17 gm PO BID PRN 06/20/16 Amino Acids/Protein Hydrolys [Prosource No Carb Liquid Pkt] 30 ml PO BID@0800, 1730 packet 06/23/16 Ascorbic Acid [Vitamin C -] 250 mg PO DAILY tablet 06/23/16 Mirtazapine [Remeron -] 7.5 mg PO HS tablet 06/23/16 Multivitamins [Multivit ([facility] Formulary)] 1 tab PO DAILY tab 06/23/16 Ondansetron Injection [Zofran Injection] 4 mg IVPB Q6H PRN #0 vial 06/23/16 Piperacillin/Tazob 3.375 gm [Zosyn 3.375GM Ivpb (Pre-Docked)] 3.375 gm IVPB Q8H- IV bag 06/23/16 Potassium Chloride [K-Dur -] 20 meq PO DAILY 06/23/16
[2016-06-23] MEDS ORDERED: MAGNESIUM SULF 50% (8.12 MEQ/2 ML-1 GM VIAL) IVPB ONE (15:00)
[2016-06-23] MEDS ORDERED: POTASSIUM CHLORIDE TABS 20 MEQ TABLET.ER (FP) PO SCH (15:00)
[2016-06-23 15:16] VITALS: BP 137/70; PULSE 81; TEMP 98
[2016-06-23] MEDS: KCL 10 MEQ IVPB 100 ML IVPB SCH (17:31)
== END 2016-06-23 18:21 | disposition short-term general hospital (02) | DRG 862 ==
LOC: JER 19:31 → JERBED 06-20 00:48 → J6S 06-20 13:09
PROVIDERS: ADMIT Family Medicine; ATTEND Family Medicine
PROC: 0W9G30Z Drainage of Peritoneal Cavity with Drainage Device, Percutaneous Approach (ICD-10-PCS; principal; 2016-06-20)
PROC: 0W9G30Z Drainage of Peritoneal Cavity with Drainage Device, Percutaneous Approach (ICD-10-PCS; 2016-06-23)
DX: T81.4XXA Infection following a procedure, initial encounter (principal); K65.1 Peritoneal abscess; C20 Malignant neoplasm of rectum; M54.5 Low back pain; R16.0 Hepatomegaly, not elsewhere classified; R10.31 Right lower quadrant pain; Z85.038 Personal history of other malignant neoplasm of large intestine
CPT/HCPCS: 36415; 49406; 71010-TC; 74177-TC; 76098-TC; 76380-TC; 76705-TC; 80053; 81003; 81015; 82550; 82803; 83605; 83690; 83735; 84100; 84484; 85025; 85027; 85610; 85730; 86850; 86870; 86900; 86901; 86902; 87040; 87070; 87075; 87076; 87086; 87186; 87205; 87899; 93005; 93010; 99285-25; C1729; C1769; Q9967